=== PATIENT | female | born 1980 | race Caucasian/White ===

== ENCOUNTER 2024-09-17 23:22 | Outpatient (CLI) | payer OTHER, SELFPAY ==
--- OUTSIDE RECORDS SUMMARY | 2024-08-10 11:00 | XMS_ITS | Encounter Summary ---
Author Organization [place] Address [address] [place] [address] Care Team Providers Care Ironing Worker Name Role Phone Tej Yazmin LEE BILLING MANAGER Unavailable [phone] Yazmin Burnham APRN [facility] Primary Care Provider + Kenisha Rodriges PA-C Unavailable [phone] Kari Boykin [facility] Unavailable [phone] Kari Boykin [facility] Unavailable [phone] Reason for Visit * Reason Comments RECHECK Encounter Details Date Type Department Care Team (Late st Contact Info) Description 08/10/2024 11:00 AM CDT Office Visit [facility] [address] [place], [place] [address] Kenisha Rodriges PA-C [address] [facility] [place] [id number] Overweight with body mass index (BMI) of 26 to 26.9 in adult (Primary Dx); History of obesity; High cholesterol Social History Tobacco Use Types Packs/Day Years Used Date Smoking Tobacco: Never Smokeless Tobacco: Never Alcohol Use Standard Drinks/Week Comments Yes 0 (1 standard drink = 0.6 oz pur e alcohol) Rare Social Connection and Isolat ion Panel [NHANES] Answer Date Recorded In a typical week, how many times do you talk on the phone with family, friends, or neighbors? More than three times a week 04/23/2021 How often do you get togethe r with friends or relatives? Once a week 04/23/2021 How often do you attend chur or church services? More than 4 times per year 04/23/2021 Do you belong to any clubs o r organizations such as jehovah's witness groups, unions, fraternal or athletic groups, or school groups? Yes 04/23/2021 Attends Club or Organization Meetings Not on digna e 04/23/2021 Are you , , di vorced, , never , or living with a partner? 04/23/2021 AUDIT-C Answer Date Recorded Q1: How often do you have a drink containing alc ohol? Monthly or less 04/23/2021 Q2: How many drinks containi ng alcohol do you have on a typical day when you are drinking? 1 or 2 04/23/2021 Q3: How often do you have si x or more drinks on one occasion? Less than monthly 04/23/2021 Overall Financial Resource Strain (CARDIA) Answe r Date Recorded How hard is it for you to pa y for the very basics like food, housing, medical care, and heating? Not hard at all 04/23/2021 PHQ-2 Answer Date Recorded PHQ-2 Score 0 06/18/2024 [facility] - Occupational Stress Questionnaire Answer Date Recorded Do you feel stress - tense, restless, nervous, or anxious, or unable to sleep at night because your mind is troubled all the time - these days? Rather much 04/23/2021 Exercise Vital Sign Answer Date Recorde d On average, how many days pe r week do you engage in moderate to strenuous exercise (like a brisk walk)? 3 days 04/23/2021 On average, how many minutes do you engage in exercise at this level? 30 min 04/23/2021 Hunger Vital Sign Answer Date Recorded Within the past 12 months, y ou worried that your food would run out before you got the money to buy more. Never true 04/23/19 22 Within the past 12 months, t he food you bought just didn't last and you didn't have money to get more. Never true 04/23/2021 PRAPARE - Transportation Answer Date Re corded In the past 12 months, has l ack of transportation kept you from medical appointments or from getting medications? No 03/26 In the past 12 months, has l ack of transportation kept you from meetings, work, or from getting things needed for daily living? No 04/23/2021 Housing Stability Vital Sign Answer Chris e Recorded In the last 12 months, was t here a time when you were not able to pay the mortgage or rent on time? No 04/23/2021 In the last 12 months, how many places have you lived? 2 04/23/2021 In the last 12 months, was t here a time when you did not have a steady place to sleep or slept in a residential (including now)? No 04/23/2021 Adolescent Education Answer Date Record ed Getting School Help Needed Not on file 01/05 Interpersonal Safety Answer Date Record ed Do you feel physically and e motionally safe where you currently live? Yes 07/28/2023 Within the past 12 months, h ave you been hit, slapped, kicked or otherwise physically hurt by someone? No 07/28/2023 Within the past 12 months, h ave you been humiliated or emotionally abused in other ways by your partner or ex-partner? 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 Not on file Not on file documented as of this encounter Last Filed Vital Signs Vital Sign Reading Time Taken Comments Blood Pressure 110/75 08/10/2024 10:40 AM CDT Pulse 80 08/10/2024 10:40 AM CDT Temperature - - Respiratory Rate - - Oxygen Saturation 98% 08/10/2024 10:40 AM CDT Inhaled Oxygen Concentration - - Weight 75.8 kg (167 lb) 08/10/2024 10:40 AM CDT Height 167.6 cm (5' 6) 08/10/2024 10:40 AM CDT Body Mass Index 26.95 08/10/2024 10:40 AM CDT documented in this encounter Patient Instructions * Patient Instructions* Kenisha Rodriges PA-C - 08/10/2024 11:00 AM CDT Nice to talk with you today! Thank you for allowing me the privilege of caring for you. We hope we provided you with the excellent service you deserve. To ensure the quality of our services you may receive a patient satisfaction survey from an independent monitoring company. The greatest compliment you can give is Likely to Recommend Below is our plan we discussed.- ALDEN De Get lab Continue zepbound 2.5 mg Please schedule a follow up with Kenisha Rodriges PA-C in 6 months. Will be seeing MTM in September. If you need to reach me sooner you can do so by calling [phone]. Have a great day! Eat Better ? Move More ? Live Well Eat 3 nutrient-rich meals each day Don???t skip meals--it will cause you to overeat later in the day! Eating fiber (vegetables/fruits/whole grains) and protein with meals helps you stay full longer Choose foods with less than 10 grams of sugar and 5 grams of fat per serving to prevent excess calories and weight gain Eat around the same times each day to develop a routine eating schedule Avoid snacking unless physically hungry. Planned snacks: 1-2 times per day and no more than 150 calories Eat protein first Protein helps with healing, maintaining adequate muscle mass, reducing hunger and optimizing nutritional status Aim for 60-80 grams of protein per day Fill up on Fiber Fiber comes from plants--fruits, veggies, whole grains, nuts/seeds and beans Fiber is low in calories, high in phytonutrients and helps you stay full longer Aim for 25-35 grams per day by eating fiber with meals and snacks Eat S-L-O-W-L-Y Take 20-30 minutes to eat each meal by taking small bites, chewing foods to applesauce consistency or 20-30 times before you swallow Eating foods too fast can delay satiety/fullness signals and increase overeating Slow down your eating by using toddler utensils, putting your fork/spoon down between bites and notwatching TV or emailing during meals! Keep a Journal Writing down what you eat, how you feel and when you are active helps you identify new changes to work on from week to week Look for ways to cut 100 calories from your current diet 2-3 times per day Drink 64 ounces of 0-Calorie drinks between meals Water Zero calorie Propel?? or Vitamin Water?? SoBe Lifewater?? Zero Calories Crystal Light??, Sugar-Free Carlitos-Aid??, and other sugar-free lemonade or flavored alcazar Keep Caffeine to less than 300mg per day ie: 3-6oz cups coffee Work up to 45-60 minutes of physical activity most days of the week Helps with losing weight and prevent regaining those extra pounds! Do a combo of cardio (walking/water exercises) and strength training (lifting weights/Vinyasa yoga) Avoid Mindless Eating Be present when you eat--take note of the smell, taste and quality of your food Make a list of alternative activities you could do to prevent eating out of boredom/stress Go for a walk, call a friend, chew gum, paint your nails, re-organize the garage, etc documented in this encounter Progress Notes * Kenisha Rodriges PA-C - 08/10/2024 11:00 AM CDT Return Medical Weight Management Note Yen Milan : 1980 JANEY: 08/10/2024 Dear Yazmin Burnham APRN BILLING MANAGER, I had the pleasure of seeing your patient Yen Milan. She is a 43 year old female who I am continuing to see for treatment of obesity related to: 02/02/2024 1:29 PM -- I have the following health issues associated with obesity High Cholesterol I have the following symptoms associated with obesity Depression Back Pain Fatigue Assessment Problem List Items Addressed This Visit Overweight with body mass index (BMI) of 26 to 26.9 in adult - Primary Relevant Orders Basic metabolic panel High cholesterol History of obesity PLAN/DISCUSSION: Congratulated patient on overall weight loss and lifestyle changes. 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 Plan: Get lab Continue zepbound 2.5 mg FOLLOW-UP: MTM in September, provider in January SUBJECTIVE/OBJECTIVE: Patient seen initially 02/03/2024 and was started on compounded semaglutide. Has followed up with MTM Pharmacist Kari Boykin. Last visit was 06/18/2024 and was transitioned over to zepbound 2.5 mg vials. Is on week 5. Weight is unchanged since this transition. Is still not snacking. Seems like has appetite suppression. Gives injection every 10 days Biggest challenge now is 4 times week not home for dinner due to kids sports. Has been eating late. Anti-obesity medications: Current: zepbound 2.5 mg every 10 days to help wean off. Side effects: Denies nausea, vomiting, abdominal pain, severe constipation, diarrhea, or heartburn Antiobesity medication history: Phentermine (Lomaira, Adipex) Caution due to anxiety Phentermine/Topiramate (Qsymia) Bupropion/Naltrexone (Contrave) Liraglutide (Saxenda) Semaglutide (Wegovy) Patient has no history of pancreatitis. Patient has no personal or family history of medullary thyroid carcinoma or MEN2. Tirzepatide (Zepbound) Orlistat (Xenical/Avery) Off-Label Medications for Obesity Semaglutide (Ozempic) Tirzepatide (Mounjaro) Bupropion (Wellbutrin) Currently taking for years Metformin(Glucophage) option Topiramate (Topamax) hx of kidney stone Naltexone Recent diet changes: Drinks 80 oz water. B: uzbek yogurt, cashi cereal, apple L: grapes, turkey sandwich, avocado D: Durand sandwich Not snacking much Recent exercise/activity changes: walking a lot more. Got some resistance band couple times weekly Recent stressors: up lately due to busy schedule CURRENT WEIGHT: 167 lbs 0 oz Initial Weight (lbs): 203 lbs Last Visits Weight: 203 lb (92.1 kg) Cumulative weight loss (lbs): 36 Weight Loss Percentage: 17.73% MEDICATIONS: Current Outpatient Medications Medication Sig Dispense Refill buPROPion (WELLBUTRIN XL) 150 MG 24 hr tablet Take 150 mg by mouth every morning. 150 mg + 300 mg =450 mg daily buPROPion (WELLBUTRIN XL) 300 MG 24 hr tablet TAKE 1 TABLET BY MOUTH EVERY DAY IN THE MORNING busPIRone (BUSPAR) 10 MG tablet Take 10 mg by mouth 2 times daily. citalopram (CELEXA) 40 MG tablet Take 40 mg by mouth every morning. 150 mg + 300 mg = 450 mg daily GLYCOPYRROLATE PO Take 1 mg by mouth 3 times daily as needed. LARISSIA 0.1-20 MG-MCG tablet TAKE 1 TABLET BY MOUTH ONCE DAILY. TAKE ONLY ACTIVE TABLETS CONTINUOUSLY AND SKIP PLACEBO TABLETS linaclotide (LINZESS) 290 MCG capsule Take 290 mcg by mouth every morning (before breakfast) ondansetron (ZOFRAN ODT) 4 MG ODT tab Take 1 tablet (4 mg) by mouth every 8 hours as needed for nausea. 20 tablet 0 SUMAtriptan (IMITREX) 50 MG tablet Take 1-2 tablets (50-100 mg) by mouth at onset of headache for migraine. May repeat in 2 hrs. Max 200 mg in 24 hrs 9 tablet 0 tirzepatide-weight management (ZEPBOUND) 2.5 MG/0.5ML vial Inject 0.5 mLs (2.5 mg) subcutaneously once a week. Cell #:[phone] 2 mL 3 cloNIDine (CATAPRES) 0.1 MG tablet as needed. (Patient not taking: Reported on 08/10/2024) COMPOUNDED NON-CONTROLLED SUBSTANCE (CMPD RX) - PHARMACY TO MIX COMPOUNDED MEDICATION Inject Semaglutide 0.5 mg subcutaneously once weekly (Patient not taking: Reported on 08/10/2024) 1 mL 2 ROS: General Fatigue: No Sleep Quality: OK PHYSICAL EXAM: Objective BP 110/75 Pulse 80 Ht 5' 6 (1.676 m) Wt 167 lb (75.8 kg) SpO2 98% BMI 26.95 kg/m?? GENERAL: Healthy, alert and no distress EYES: Eyes grossly normal to inspection. No discharge or erythema, or obvious scleral/conjunctival abnormalities. RESP: No audible wheeze, cough, or visible cyanosis. No visible retractions or increased work of breathing. SKIN: Visible skin clear. No significant rash, abnormal pigmentation or lesions. NEURO: Cranial nerves grossly intact. Mentation and speech appropriate for age. PSYCH: Mentation appears normal, affect normal/bright, judgement and insight intact, normal speech and appearance well-groomed. Sincerely, Kenisha Rodriges PA-C 25 minutes spent on the date of the encounter doing chart review, review of test results, patient visit and documentation documented in this encounter Plan of Treatment Upcoming Encounters Date Type Department Care Team (Late st Contact Info) Description 01/25/2025 11:00 AM FUEL DOCK ATTENDANT Office Visit [facility] [place] [address] [facility] [address] [place], [place] [phone] Kenisha Rodriges PA-C [address] [facility] [place] [address] documented as of this encounter Results * (ABNORMAL) Basic metabolic panel (08/10/2024 11:41 AM CDT) Sodium 137 135 - 145 mmol/L 08/10/2024 12:26 PM CDT LABORATORY Potassium 4.5 3.4 - 5.3 mmol/L 08/10/2024 12:26 PM CDT LABORATORY Chloride 103 98 - 107 mmol/L 08/10/2024 12:26 PM [facility] LAB[facility]ORY Carbon Dioxide (CO2) 26 22 - 29 mmol/L 08/10/2024 12:26 PM CDT LABORATORY Anion Gap 8 7 - 15 mmol/L 08/10/2024 12:26 PM CDT LABORATORY Urea Nitrogen 18.0 6.0 - 20.0 mg/dL 08/10/2024 12:26 PM CDT LABORATORY Creatinine 1.01(H) 0.51 - 0.95 mg/dL 08/10/2024 12:26 PM CDT LABORATORY GFR Estimate 71 >60 mL/min/1.7 3m2 08/10/2024 12:26 PM T LABORATORY Comment:eGFR calculated usin g 2020 CKD-EPI equation. Calcium 9.4 8.8 - 10.4 mg/dL 08/10/2024 12:26 PM CDT LABORATORY Glucose 79 70 - 99 mg/dL 08/10/2024 12:26 PM CDT LABORATORY Blood STRUCTURE OF RIGHT UPPER LIMB / Unknown Venipuncture / Unknown 08/10/2024 11:41 AM CDT 08/10/2024 11:41 AM CDT Kenisha Rodriges PA-C LAB - BLOOD ORDERABLES Final Result LABORATORY [facility] [address], [address] [place] [address], [facility] [phone] documented in this encounter Visit Diagnoses Diagnosis Overweight with body mass index (BMI) of 26 to 26.9 in adult- Primary History of obesity Personal history of other specified diseases High cholesterol Pure hypercholesterolemia documented in this encounter Care Teams Ironing Worker Relationship Specialty Start Date End Date Yazmin Burnham APRN BILLING MANAGER [address] [facility] [place] [address] PCP - General 02/02/24 Yazmin Burnham APRN BILLING MANAGER [address] [facility] [place] [id number] Assigned PCP 09/14/23 Kenisha Rodriges PA-C [address] [place] [address] Assigned Surgical Provider 02/14/24 Kari Boykin RPH [address] [place] [address] [phone] Pharmacist Pharmacist 05/05/24 Kari Boykin RPH [address] [place] [address] [phone] Assigned MTM Pharmacist 05/16/24 documented as of this encounter
--- OUTSIDE RECORDS SUMMARY | 2024-08-10 12:40 | XMS_ITS | Encounter Summary ---
Author Organization [place] Address [address] [place] [address] Care Team Providers Care Clinical Field Specialist Name Role Phone ChristinaYazmin valencia [address] [facility]IGHT Unavailable [phone] Yazmin Burnham APRN [facility] Primary Care Provider + Kenisha Rodriges PA-C Unavailable [phone] Kari Boykin [facility] Unavailable Kari Boykin [facility] Unavailable [phone] Encounter Details Date Type Department Care Team (Late st Contact Info) Description 08/10/2024 12:40 PM CDT Lab [facility] [address] [place] [phone] Overweight with body mass index (BMI) of 26 to 26.9 in adult Social History Tobacco Use Types Packs/Day Years [...] 04/23/2021 How often do you attend chur ch or mormon services? More than 4 times per year 04/23/2021 Do you belong to any clubs o r organizations such as roman catholic groups, unions, fraternal or athletic groups, or [...] Answer Date Recorded PHQ-2 Score 0 06/18/2024 [facility] - Occupational Stress Questionnaire Answer Date Recorded [...] place to sleep or slept in a nursing home (including now)? 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 [facility] [address] [place] [phone] Kenisha Rodriges PA-C [address] [place] [id number] documented as of this encounter Procedures Procedure Name Priority Date/Time Associated Diagnosis Comments BASIC METABOLIC PANEL Routine 08/10/2024 11:41 AM CDT Overweight with body mass index (BMI) of 26 to 26.9 in adult documented in this encounter Results * (ABNORMAL) Basic metabolic panel (08/10/2024 11:41 AM CDT) Sodium 137 135 - 145 mmol/L 08/10/2024 12:26 PM CDT LABORATORY Potassium 4.5 3.4 - 5.3 mmol/L 08/10/2024 12:26 PM CDT LABORATORY Chloride 103 98 - 107 mmol/L 08/10/2024 12:26 PM CDT LABORATORY Carbon Dioxide (CO2) 26 22 - 29 mmol/L 08/10/2024 12:26 PM CDT LABORATORY Anion Gap 8 7 - 15 mmol/L 08/10/2024 12:26 PM CDT LABORATORY Urea Nitrogen 18.0 6.0 - 20.0 mg/dL 08/10/2024 12:26 PM CDT LABORATORY Creatinine 1.01(H) 0.51 - 0.95 mg/dL 08/10/2024 12:26 PM CDT LABORATORY GFR Estimate 71 >60 mL/min/1.7 3m2 08/10/2024 12:26 PM CDT LABORATORY Comment:eGFR calculated 2020 CKD-EPI equation. Calcium 9.4 8.8 - 10.4 mg/dL 08/10/2024 12:26 PM CDT LABORATORY Glucose 79 70 - 99 mg/dL 08/10/2024 12:26 PM CDT LABORATORY Blood STRUCTURE OF RIGHT UPPER LIMB / Unknown Venipuncture / Unknown 08/10/2024 11:41 AM CDT 08/10/2024 11:41 AM CDT us Kenisha Rodriges PA-C LAB - BLOOD ORDERABLES Final Result LABORATORY [facility] [address], [address] [place] [address], [place] [phone] documented in this encounter Visit Diagnoses Diagnosis Overweight with body mass index (BMI) of 26 to 26.9 in adult documented in this encounter Care Teams Clinical Field Specialist Relationship Specialty Start Date End Date Yazmin Burnham APRN [address] [facility] [facility] [place] [id number] PCP - General 02/02/24 Yazmin Burnham APRN CNP [address] [facility] [place] [address] Assigned PCP 09/14/23 Kenisha Rodriges PA-C [address] [place] [address] Assigned Surgical Provider 02/14/24 Kari Boykin [facility] [address] [place] [phone] Pharmacist Pharmacist 05/05/24 Kari Boykin [facility] [address] [place] [id number] Assigned MTM Pharmacist 05/16/24 documented as of this encounter
--- OUTSIDE RECORDS SUMMARY | 2024-09-18 00:01 | XMS_ITS | Encounter Summary ---
Author Organization [place] Address [address] [place] [id number] Care Team Providers Care Board Winder Name Role Phone Yazmin Burnham APRN VETERINARY SCIENCE TEACHER Unavailable [phone] Yazmin Burnham APRN [facility] Primary Care Provider + Kenisha Rodriges PA-C Unavailable [phone] Kari Boykin [facility] Unavailable [phone] Kari Boykin [facility] Unavailable [phone] Reason for Visit * Reason Comments Abdominal Pain * Auth/Cert Specialty Diagnoses / Procedures Referred By Radha vegas Referred To Contact EMERGENCY MEDICINE Diagnoses Acute cholecystitis Randee Parikh MD [address] [place] [address] Phone: tel: fax: [facility] Emergency Dept [address] [place] [address] Phone: tel:[phone] fax: Referral ID Status Reason Start Date Expiration Date Visits Re quested Visits Authorized [id number] 1 1 Encounter Details Date Type Department Care Team (Late st Contact Info) Description 09/18/2024 12:01 AM CDT - 09/18/2024 4:54 PM CDT Hospital Encounter [facility] PreOP/PostOP [address] [place] [id number] Tyrell Aguero MD [facility] [address] [address] Randee Parikh MD [address] [place] [address] Acute cholecystitis Discharge Disposition: Home or Self Care Social History Tobacco Use Types Packs/Day Years [...] How often do you attend chur or mosque services? More than 4 times per year 04/23/2021 Do you belong to any clubs o r organizations such as muslim groups, unions, fraternal or athletic groups, or [...] on one occasion? Less than monthly 04/23/2021 PHQ-2 Answer Date Recorded PHQ-2 Score 0 06/18/2024 [facility] - Occupational [...] exercise at this level? 30 min 04/23/2021 Adolescent Education Answer Date Record ed Getting School Help Needed Not on file 01/05 Food Insecurity Answer Date Recorded Within the past 12 months, d id you worry that your food would run out before you got money to buy more? No 09/18/2024 Within the past 12 months, d id the food you bought just not last and you didn t have money to get more? No 09/18/2024 Housing Stability Answer Date Recorded Do you have housing? ([place] is defined as stable permanent housing and does not include staying outside in a car, in a tent, in an abandoned building, in an overnight fci, or couch-surfing.) Yes 09/18/2024 Are you worried about losing your housing? No 09/18/2024 Financial Resource Strain Answer Date R ecorded Within the past 12 months, h ave you or your family members you live with been unable to get utilities (heat, electricity) when it was really needed? No 09/18/2024 Transportation Needs Answer Date Record ed Within the past 12 months, h as lack of transportation kept you from medical appointments, getting your medicines, non-medical meetings or appointments, work, or from getting things that you need? No 09/18/2024 Interpersonal Safety Answer Date Record ed Do you feel physically and e motionally safe where you currently live? Yes 09/18/2024 Within the past 12 months, h ave you been hit, slapped, kicked or otherwise physically hurt by someone? No 09/18/2024 Within the past 12 months, h ave you been humiliated or emotionally abused in other ways by your partner or ex-partner? 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 Not on file Not on file documented as of this encounter Last Filed Vital Signs Vital Sign Reading Time Taken Comments Blood Pressure 128/80 09/18/2024 4:40 PM CDT Pulse 95 09/18/2024 4:40 PM CDT Temperature 36.3 C (97.3 F) 09/18/2024 4:40 PM CDT Respiratory Rate 19 09/18/2024 4:29 PM CDT Oxygen Saturation 96% 09/18/2024 4:40 PM CDT Inhaled Oxygen Concentration - - Weight 74.8 kg (165 lb) 09/18/2024 12:10 AM CDT Height 167.6 cm (5' 6) 09/18/2024 12:10 AM CDT Body Mass Index 26.63 09/18/2024 12:10 AM CDT documented in this encounter Discharge Instructions * Discharge Instructions* Elsa Ng RN - 09/18/2024 3:18 PM CDT HOME CARE FOLLOWING LAPAROSCOPIC CHOLECYSTECTOMY Mike Vincent, Kenia Johnson, R. O???Kane Mott J. Shaheen INCISIONAL CARE: Replace the bandage over your incisions DAILY until all drainage stops, or if more comfortable to have in place. If present, leave the steri-strips (white paper tapes) in place for 14 days after surgery. If Dermabond (a type of skin glue) is present, leave in place until it wears/flakes off (2-3 weeks). BATHING: OK to shower 48 hours after surgery. Avoid baths for 1 week after surgery. You may wash your hair at any time. Gently pat your incision dry after bathing. Do not apply lotions, creams, or ointments to incisions. ACTIVITY: Light Activity -- you may immediately be up and about as tolerated. Walking is encouraged, increaseas tolerated. Driving/Light Work-- when comfortable and off narcotic pain medications. Strenuous Work/Activity -- limit lifting to 20 pounds for 2 weeks. Progressively increase with time. Active Sports (running, biking, etc.) -- cautiously resume after 2 weeks. DISCOMFORT: Local anesthetic placed at surgery should provide relief for 4-8 hours. Begin taking pain pills before discomfort is severe. Take the pain medication with some food, when possible, to minimize side effects. Intermittent use of ice packs may help during the first 1-3 weeks after surgery. Expect gradual improvement. Sczi-hnw-gunveey anti-inflammatory medications (i.e. Ibuprofen/Advil/Motrin or Naprosyn/Aleve) may be used per package instructions in addition to or while tapering off the narcotic pain medications to decrease swelling and sensitivity. DO NOT TAKE these Anti-inflammatory medications if your primary physician has advised against doing so, or if you have acid reflux, ulcer, or bleeding disorder, or take blood-thinner medications. Call your primary physician or the surgery office if you have medication questions. After laparoscopic cholecystectomy, you may have shoulder or upper back discomfort due to the gas used during surgery. This is temporary and should resolve within 2-3 days. Frequent short walks may help with this. You may have decreased energy level for 1-2 weeks after surgery related to your recovery. DIET: Start with liquids and gradually increase diet as tolerated. Drink plenty of fluids. While taking pain medications, consider use of a stool softener, increase your fiber in your diet, or add a fiber supplement (like Metamucil, Citrucel) to help prevent constipation - a possible side effect of pain m edications. It is not uncommon to experience some bowel changes (loose stools or constipation) after surgery. Your body has to adapt to you no longer having a gall bladder. To help minimize this sideeffect, avoid fatty foods for 1-2 weeks after surgery. You may then slowly increase the amount of fatty foods in your diet. NAUSEA: If nauseated from the anesthetic/pain meds; rest in bed, get up cautiously with assistance, and drink clear liquids (juice, tea, broth). FOLLOW-UP AFTER SURGERY: -Our office will contact you approximately 2-3 weeks after surgery to check on your progress and answer any questions you may have. If you are doing well, you will not need to return for an office appointment. If any concerns are identified over the phone, we will help you make an appointment to see a provider. -If you have not received a phone call, have any questions or concerns, or would like to be seen, please call us at [phone]. We are located at: [facility], [address]; [place] [address] -CONTACT US IF THE FOLLOWING DEVELOPS: 1. A fever that is above 101?? 2. Increased redness, warmth, drainage, bleeding, or swelling. 3. Pain that is not relieved by rest/ice and your prescription. 4. Increasing pain after 48 hours. 5. Drainage that is thick, cloudy, yellow, green or white. 6. Any other questions or concerns. FREQUENTLY ASKED QUESTIONS: Q: How should my incision look? A: Normally your incision will appear slightly swollen with light redness directly along the incision itself as it heals. It may feel like a bump or ridge as the healing/scarring happens, and over time (3-4 months) this bump or ridge feeling should slowly go away. In general, clear or pink watery drainage can be normal at first as your incision heals, but should decrease over time. Q: How do I know if my incision is infected? A: Look at your incision for signs of infection, like redness around the incision spreading to surrounding skin, or drainage of cloudy or foul-smelling drainage. If you feel warm, check your temperature to see if you are running a fever. If any of these things occur, please notify the nurse at our office. We may need you to come into the office for an incision check. Q: How do I take care of my incision? A: If you have a dressing in place - Starting the day after surgery, replace the dressing 1-2 timesa day until there is no further drainage from the incision. At that time, a dressing is no longer needed. Try to minimize tape on the skin if irritation is occurring at the tape sites. If you have significant irritation from tape on the skin, please call the office to discuss other method of dressing your incision. Small pieces of tape called ???steri-strips?? may be present directly overlying your incision; these may be removed 10 days after surgery unless otherwise specified by your surgeon. If these tapes start to loosen at the ends, you may trim them back until they fall off or are removed. A: If you had ???Dermabond?? tissue glue used as a dressing (this causes your incision to look shiny with a clear covering over it) - This type of dressing wears off with time and does not require more dressings over the top unless it is draining around the glue as it wears off. Do not apply ointments or lotions over the incisions until the glue has completely worn off. Q: There is a piece of tape or a sticky ???lead?? still on my skin. Can I remove this? A: Sometimes the sticky ???leads?? used for monitoring during surgery or for evaluation in the emergency department are not all removed while you are in the hospital. These sometimes have a tab or metal dot on them. You can easily remove these on your own, like taking off a band-aid. If there is agel substance under the ???lead?? , simply wipe/clean it off with a washcloth or paper towel. Q: What can I do to minimize constipation (very hard stools, or lack of stools)? A: Stay well hydrated. Increase your dietary fiber intake or take a fiber supplement -with plenty of water. Walk around frequently. You may consider an vpmy-qvm-wfgfkbq stool-softener. Your Pharmacist can assist you with choosing one that is stocked at your pharmacy. Constipation is also one of themost common side effects of pain medication. If you are using pain medication, be pro- active and try to PREVENT problems with constipation by taking the steps above BEFORE constipation becomes a problem. Q: What do I do if I need more pain medications? A: Call the office to receive refills. Be aware that certain pain meds cannot be called into a pharmacy and actually require a paper prescription. A change may be made in your pain med as you progress thru your recovery period or if you have side effects to certain meds. --Pain meds are NOT refilled after 5pm on weekdays, and NOT AT ALL on the weekends, so please look ahead to prevent problems. Q: Why am I having a hard time sleeping now that I am at home? A: Many medications you receive while you are in the hospital can impact your sleep for a number ofdays after your surgery/hospitalization. Decreased level of activity and naps during the day may also make sleeping at night difficult. Try to minimize day-time naps, and get up frequently during theday to walk around your home during your recovery time. Sleep aides may be of some help, but are not recommended for long-term use. Q: I am having some back discomfort. What should I do? A: This may be related to certain positioning that was required for your surgery, extended periods of time in bed, or other changes in your overall activity level. You may try ice, heat, acetaminophen, or ibuprofen to treat this temporarily. Note that many pain medications have acetaminophen in them and would state this on the prescription bottle. Be sure not to exceed the maximum of 4000mg per day of acetaminophen. If the pain you are having does not resolve, is severe, or is a flare of back pain you have had on other occasions prior to surgery, please contact your primary physician for further recommendations or for an appointment to be examined at their office. Q: Why am I having headaches? A: Headaches can be caused by many things: caffeine withdrawal, use of pain meds, dehydration, highblood pressure, lack of sleep, over-activity/exhaustion, flare-up of usual migraine headaches. If you feel this is related to muscle tension (a band-like feeling around the head, or a pressure at thelow-back of the head) you may try ice or heat to this area. You may need to drink more fluids (try electrolyte drink like Gatorade), rest, or take your usual migraine medications. If your headaches do not resolve, worsen, are accompanied by other symptoms, or if your blood pressure is high, please call your primary physician for recommendation and/or examination. Q: I am unable to urinate. What do I do? A: A small percentage of people can have difficulty urinating initially after surgery. This includes being able to urinate only a very small amount at a time and feeling discomfort or pressure in thevery low abdomen. This is called ???urinary retention?? , and is actually an urgent situation. Proceed to your nearest Emergency department for evaluation (not an Urgent Care Center). Sometimes the bladder does not work correctly after certain medications you receive during surgery, or related to certain procedures. You may need to have a catheter placed until your bladder recovers. When planningto go to an Emergency department, it may help to call the ER to let them know you are coming in for this problem after a surgery. This may help you get in quicker to be evaluated. If you have symptoms of a urinary tract infection, please contact your primary physician for the proper evaluation and treatment. If you have other questions, please call the office Friday thru Friday between 8am and 4:30pm to discuss with the nurse or physician assistant professor of biology. # There is a surgeon ALUM PLANT SUPERVISOR on weekday evenings and over the weekend in case of urgent need only, and may be contacted at the same number. If you are having an emergency, call 911 or proceed to your nearest emergency department. You received Toradol, an IV form of Ibuprofen (Motrin) at 3:15pm. Do not take any Ibuprofen products until 9:15pm. Maximum acetaminophen (Tylenol) dose from all sources should not exceed 4 grams (4000 mg) per day. You last had 650mg at 4pm. [facility] [phone] * Attachments The following attachments cannot be sent through Care Everywhere. * (s) After Anesthesia (Sleep Medicine) ([place]) documented in this encounter Medications at Time of Discharge acetaminophen (TYLENOL) 325 MG tabletIndications: Acute cholecystitis Take 2 tablets (650 mg) by mouth every 4 hours as needed for mild pain. 50 tablet 5 buPROPion (WELLBUTRIN XL) 150 MG 24 hr tablet Take 150 mg by mouth every morning. Take with the 300 mg to make 450 mg buPROPion (WELLBUTRIN XL) 300 MG 24 hr tablet Take 300 mg by mouth every morning. Take with the 150 mg to make 450 mg busPIRone (BUSPAR) 10 MG tablet Take 10 mg by mouth 2 times daily. 4 citalopram (CELEXA) 40 MG tablet Take 40 mg by mouth at bedtime. glycopyrrolate (ROBINUL) 1 MG tablet Take 1 mg by mouth 4 times daily as needed. ibuprofen (ADVIL/MOTRIN) 600 MG tabletIndications: Acute cholecystitis Take 1 tablet (600 mg) by mouth every 6 hours as needed for other (mild and/or inflammatory pain). 30 tablet 5 LARISSIA 0.1-20 MG-MCG tablet TAKE 1 TABLET BY MOUTH ONCE DAILY. TAKE ONLY ACTIVE TABLETS CONTINUOUSLY AND SKIP PLACEBO TABLETS 1 linaclotide (LINZESS) 290 MCG capsule Take 290 mcg by mouth every morning (before breakfast) ondansetron (ZOFRAN ODT) 4 MG ODT tabIndications:Jose Alfredo sea Take 1 tablet (4 mg) by mouth every 8 hours as needed for nausea. 20 tablet 5 oxyCODONE (ROXICODONE) 5 MG tabletIndications: Acute cholecystitis Take 1-2 tablets (5-10 mg) by mouth every 4 hours as needed for moderate to severe pain. 6 tablet 5 senna-docusate (SENOKOT-S/PERICOL BOB) 8.6-50 MG tabletIndications: Acute cholecystitis Take 1-2 tablets by mouth 2 times daily. 30 tablet 5 SUMAtriptan (IMITREX) 50 MG tabletIndications: Migraine without aura and without status migrainosus, not intractable Take 1-2 tablets (50-100 mg) by mouth at onset of headache for migraine. May repeat in 2 hrs. Max 200 mg in 24 hrs 9 tablet 5 tirzepatide-weight management (ZEPBOUND) 2.5 MG/0.5ML vialIndications:Cl ass 1 obesity due to excess calories without serious comorbidity with body mass index (BMI) of 32.0 to 32.9 in adult Inject 0.5 mLs (2.5 mg) subcutaneously once a week. Cell #:[phone] 2 mL 3 5 documented as of this encounter Progress Notes * Rajat Ba, ARBEN - 09/18/2024 3:25 AM CDT ROOM # 252 Living Situation (if not independent, order SW consult): Facility name: house with personnel scheduler: roge Activity level at baseline: ind Activity level on admit: sba Who will be transporting you at discharge: roge Patient registered to observation; given Patient Bill of Rights; given the opportunity to ask questions about observation status and their plan of care. Patient has been oriented to the observation room, bathroom and call light is in place. Discussed discharge goals and expectations with patient/family. 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 Pain was so severe she was diaphoretic and clammy. Denies any hx of abdominal pain issues. She had spaghetti, caesar salad, and garlic bread for dinner. Is currently trying to wean off of it. Denies any fevers ER VSS and she is afebrile CMP with mildly elevated AST 71, lipase also slightly up at 73 CBC wnl AUS Several small gallstones are present within a mildly distended and slightly thick-walled gallbladder. Additionally, the electrophysiology technologist reports that the patient has focal tenderness over the gallbladder. These findings are at least mildly to moderately suspicious for acute cholecystitis. Problem List: Acute cholecystitis IVF until able to take po Prn antiemetics and pain medications Empiric amp-sulbactam Gen surg consultation Mildly elevated AST and lipase Suspect related to above Jennifer CMP Depression Resume home meds when med rec completed Pre-Op Denies issues with anesthesia other than mild nausea/vomiting. No hx of bleeding tendencies. Easilywalks up 2 flights of stairs without having to stop DVT Prophylaxis: Pneumatic Compression Devices Code Status: Full Code Functional Status: independent Swann: not needed Access: PIV Time spent 45 minutes reviewing epic including notes/labs/prior hx, current medications. 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 Pain was so severe she was diaphoretic and clammy. Denies any hx of abdominal pain issues. She had spaghetti, caesar salad, and garlic bread for dinner. Is currently trying to wean off of it. Denies any fevers ER VSS and she is afebrile CMP with mildly elevated AST 71, lipase also slightly up at 73 CBC wnl AUS Several small gallstones are present within a mildly distended and slightly thick-walled gallbladder. Additionally, the electrophysiology technologist reports that the patient has focal tenderness over the gallbladder. These findings are at least mildly to moderately suspicious for acute cholecystitis. The history is obtained in discussion with the ER provider Jarrett Aguero MD and the patient with excellent reliability Epic and Care everywhere were extensively reviewed Past Medical History: Past Medical History: Diagnosis Date Arthritis Depressive disorder DUB (dysfunctional uterine bleeding) 10/11/2008 Endometriosis, site unspecified Endometriosis Hypertension only with Lumbar radiculopathy 01/03/2013 Menorrhagia 01/24/2009 depression counseling and medication R UVJ obstructing stone 10/17/2016 S/P section 08/11/2015 Thyroid activity decreased Past Surgical History: Past Surgical History: Procedure Laterality Date APPENDECTOMY 2003 separate from the laparoscopy SECTION 11/06/2012 Procedure: SECTION; section for failure to progress; Surgeon: Leyda Ramires MD; Location: [facility] SECTION N/A 08/11/2015 Procedure: SECTION; Surgeon: Reena Sanchez MD; Location: [facility] SECTION N/A 07/01/2017 Procedure: SECTION;; Surgeon: Loraine Taylor MD; Location: [facility] HC TOOTH EXTRACTION W/FORCEP LAPAROSCOPIC ABLATION ENDOMETRIOSIS 2002 WRIST SURGERY Left 2009 ZC NONSPECIFIC PROCEDURE cauterize endometriosis via laparoscopy 2003 Social History: Social History Tobacco Use Smoking status: Never Smokeless tobacco: Never Substance Use Topics Alcohol use: Yes Comment: Rare Family History: Family History Problem Relation Age of Onset Hypertension Mother Anxiety Disorder Mother Thyroid Disease Mother Thyroid Disease Sister Cancer - colorectal Maternal Grandfather Diabetes Maternal Grandfather Colon Cancer Maternal Grandfather C.A.D. Paternal Grandmother Coronary Artery Disease Paternal Grandmother Allergies: Allergies Allergen Reactions Seasonal Allergies Medications: Await med rec Review of Systems: A Comprehensive greater than 10 system review of systems was carried out. Pertinent positives and negatives are noted above. Otherwise negative for contributory information. Physical Exam: Blood pressure 132/81, pulse 84, temperature 97.8 ??F (36.6 ??C), resp. rate 20, height 1.676 m (5'6), weight 74.8 kg (165 lb), SpO2 98%, not currently . Exam: General: Pleasant nad looks stated age HEENT: Head nc/at sclera clear PER Neck is supple Lungs: cta b nl effort CV: RRR no m/r/g no le edema Abd: soft, ttp ruq and epigastric region Neuro: Cn 2-12 grossly intact and mcfarland Alert and oriented affect appropriate Skin: W/d no c/c Data: Results for orders placed or performed during the hospital encounter of 09/18/24 US Abdomen Limited Status: None Narrative EXAM: ULTRASOUND ABDOMEN LIMITED - RIGHT UPPER QUADRANT LOCATION: [facility] DATE/TIME: 09/18/2024 1:02 AM CDT INDICATION: Right upper quadrant pain. COMPARISON: 11/27/2022 - CT abdomen and pelvis. TECHNIQUE: Limited abdominal ultrasound. FINDINGS: GALLBLADDER: Several small gallstones within a mildly distended gallbladder. Slight gallbladder wall thickening. No pericholecystic fluid. The electrophysiology technologist reports that the patient has focal tenderness when scanning over the gallbladder. BILE DUCTS: No intra or extrahepatic biliary dilatation. The common duct measures 0.4 cm in diameter. LIVER: Normal echogenicity. No visualized masses. The portal vein is patent with flow in the normaldirection. RIGHT KIDNEY: 9.0 cm in length. Normal echogenicity. No intrarenal collecting system dilatation, calculi, or masses. OTHER: No free fluid in the upper right hemiabdomen. Impression IMPRESSION: 1. Several small gallstones are present within a mildly distended and slightly thick-walled gallbladder. Additionally, the electrophysiology technologist reports that the patient has focal tenderness over the gallbladder. These findings are at least mildly to moderately suspicious for acute cholecystitis. Recommend clinical correlation. If desired, a HIDA scan could be considered for confirmation of acute cholecystitis. 2. No biliary dilatation. Comprehensive metabolic panel Status: Abnormal Result Value Ref Range Sodium 136 135 - 145 mmol/L Potassium 4.1 3.4 - 5.3 mmol/L Carbon Dioxide (CO2) 23 22 - 29 mmol/L Anion Gap 10 7 - 15 mmol/L Urea Nitrogen 14.7 6.0 - 20.0 mg/dL Creatinine 0.92 0.51 - 0.95 mg/dL GFR Estimate 79 >60 mL/min/1.73m2 Calcium 9.4 8.8 - 10.4 mg/dL Chloride 103 98 - 107 mmol/L Glucose 90 70 - 99 mg/dL Alkaline Phosphatase 64 40 - 150 U/L AST 71 (H) 0 - 45 U/L ALT 50 0 - 50 U/L Protein Total 6.9 6.4 - 8.3 g/dL Albumin 4.4 3.5 - 5.2 g/dL Bilirubin Total 0.4 <=1.2 mg/dL [place] Draw Status: None Narrative The following orders were created for panel order [place] Draw. Procedure Abnormality Status --------- ------ Extra Blue Top Tube[[id number]] Final result Extra Red Top Tube[[id number]] Final result Please view results for these tests on the individual orders. Lipase Status: Abnormal Result Value Ref Range Lipase 73 (H) 13 - 60 U/L Troponin T, High Sensitivity Status: Normal Result Value Ref Range Troponin T, High Sensitivity <6 <=14 ng/L CBC with platelets and differential Status: None Result Value Ref Range WBC Count 8.1 4.0 - 11.0 10e3/uL RBC Count 4.68 3.80 - 5.20 10e6/uL Hemoglobin 14.2 11.7 - 15.7 g/dL Hematocrit 41.0 35.0 - 47.0 % MCV 88 78 - 100 fL MCH 30.3 26.5 - 33.0 pg MCHC 34.6 31.5 - 36.5 g/dL RDW 11.9 10.0 - 15.0 % Platelet Count 287 150 - 450 10e3/uL % Neutrophils 59 % % Lymphocytes 35 % % Monocytes 4 % % Eosinophils 1 % % Basophils 1 % % Immature Granulocytes 0 % NRBCs per 100 WBC 0 <1 /100 Absolute Neutrophils 4.8 1.6 - 8.3 10e3/uL Absolute Lymphocytes 2.8 0.8 - 5.3 10e3/uL Absolute Monocytes 0.4 0.0 - 1.3 10e3/uL Absolute Eosinophils 0.1 0.0 - 0.7 10e3/uL Absolute Basophils 0.1 0.0 - 0.2 10e3/uL Absolute Immature Granulocytes 0.0 <=0.4 10e3/uL Absolute NRBCs 0.0 10e3/uL Extra Blue Top Tube Status: None Result Value Ref Range Hold Specimen JIC Extra Red Top Tube Status: None Result Value Ref Range Hold Specimen JIC EKG 12-lead, tracing only Status: None (Preliminary result) Result Value Ref Range Systolic Blood Pressure mmHg Diastolic Blood Pressure mmHg Ventricular Rate 79 BPM Atrial Rate BPM MO Interval ms QRS Duration 80 ms QT 398 ms QTc 456 ms P [place] degrees R AXIS 17 degrees T [place] 62 degrees Interpretation ECG Accelerated Junctional rhythm Low voltage QRS Poor R-wave progression ; consider anterior infarct, lead placement, or normal variant Abnormal ECG No previous ECGs available CBC with Platelets & Differential Status: None Narrative The following orders were created for panel order CBC with Platelets & Differential. Procedure Abnormality Status --------- ------ CBC with platelets and ...[[id number]] Final result Please view results for these tests on the individual orders. documented in this encounter Consult Notes * Satnam Johnson MD - 09/18/2024 2:32 PM CDTAssociated Order(s): SURGERY GENERAL IP CONSULT General Surgery Consultation Yen Milan Age: [age] year old Date of : 1980 Date of Admission: 09/18/2024 Reason for consult: Cholecystitis Requesting physician: Dr Parikh Assessment and Plan: Assessment: #acute cholecystitis Her exam, labs, and imaging are consistent with acute cholecystitis. Comorbidities: has a past medical history of Arthritis, Depressive disorder, DUB (dysfunctional uterine bleeding) (10/11/2008), Endometriosis, site unspecified, Hypertension, Lumbar radiculopathy (01/03/2013), Menorrhagia (01/24/2009), depression, R UVJ obstructing stone (10/17/2016), S/P section (08/11/2015), and Thyroid activity decreased. Plan: I have offered the patient a laparoscopic cholecystectomy, today. We have discussed the indication, alternatives, risks and expected recovery. Specifically we have discussed incisions, scarring, postoperative infections, anesthesia, bleeding, blood transfusion, open conversion, common bile duct injury, injury to intra-abdominal organs, retained common bile duct stone, bile leak, DVT, PE, hernia, post cholecystectomy diarrhea, recovery, postoperative dietary restrictions and physical limitations. We have discussed the recommended interventions and treatments for these complications. All questions have been answered to the best of my ability. She elects to proceed with surgery. Will plan to discharge to home after surgery today unless complications arise. Chief Complaint: Abdominal pain, right upper quadrant History is obtained from the patient. History of Present Illness: Yen Milan is a 43 year old female who presented to the ED today with severe right upper quadrant and epigastric abdominal pain. The pain started at 11 pm last night. She had nausea but no vomiting. She denies any fevers. The pain persisted throughout the day today and has only mildly improved with pain medications. She has a surgical history of C-sections and appendectomy. 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 Past Medical History: Past Medical History: Diagnosis Date Arthritis Depressive disorder DUB (dysfunctional uterine bleeding) 10/11/2008 Endometriosis, site unspecified Endometriosis Hypertension only with Lumbar radiculopathy 01/03/2013 Menorrhagia 01/24/2009 depression counseling and medication R UVJ obstructing stone 10/17/2016 S/P section 08/11/2015 Thyroid activity decreased Past Surgical History: Past Surgical History: Procedure Laterality Date APPENDECTOMY 2003 separate from the laparoscopy SECTION 11/06/2012 Procedure: SECTION; section for failure to progress; Surgeon: Leyda Ramires MD; Location: [facility] SECTION N/A 08/11/2015 Procedure: SECTION; Surgeon: Reena Sanchez MD; Location: [facility] L+[facility] SECTION N/A 07/01/2017 Procedure: SECTION;; Surgeon: Loraine Taylor MD; Location: [facility] L+[facility] HC TOOTH EXTRACTION W/FORCEP LAPAROSCOPIC ABLATION ENDOMETRIOSIS 2003 WRIST SURGERY Left 2009 ZZC NONSPECIFIC PROCEDURE cauterize endometriosis via laparoscopy 2003 Social History: Social History Tobacco Use Smoking status: Never Smokeless tobacco: Never Substance Use Topics Alcohol use: Yes Comment: Rare Family History: Family History Problem Relation Age of Onset Hypertension Mother Anxiety Disorder Mother Thyroid Disease Mother Thyroid Disease Sister Cancer - colorectal Maternal Grandfather Diabetes Maternal Grandfather Colon Cancer Maternal Grandfather C.A.D. Paternal Grandmother Coronary Artery Disease Paternal Grandmother Allergies: Allergies Allergen Reactions Seasonal Allergies Medications: Current Facility-Administered Medications Medication Dose Route Frequency Provider Last Rate Last Admin [Auto Hold] acetaminophen (TYLENOL) tablet 650 mg 650 mg Oral Q4H PRN Randee Parikh MD Or [Auto Hold] acetaminophen (TYLENOL) Suppository 650 mg 650 mg Rectal Q4H PRN Randee Parikh MD acetaminophen (TYLENOL) tablet 650 mg 650 mg Oral Once PRN Satnam Johnson MD albuterol (PROVENTIL) neb solution 2.5 mg 2.5 mg Nebulization Q4H PRN Noel Burton MD [Auto Hold] ampicillin-sulbactam (UNASYN) 3 g vial to attach to NS 100 mL bag 3 g Intravenous Q6H Randee Parikh MD 3 g at 09/18/24 0816 [Auto Hold] artificial saliva (BIOTENE MT) solution 1 spray 1 spray Mouth/Throat 4x Daily PRN Randee Parikh MD [Auto Hold] benzocaine-menthol (CHLORASEPTIC) 6-10 MG lozenge 1 lozenge 1 lozenge Buccal Q1H PRN Randee Parikh MD [Auto Hold] calcium carbonate (TUMS) chewable tablet 1,000 mg 1,000 mg Oral BID PRN Randee Parikh MD dexAMETHasone (DECADRON) injection 4 mg 4 mg Intravenous Once PRN Noel Burton MD fentaNYL (PF) (SUBLIMAZE) injection 25 mcg 25 mcg Intravenous Q5 Min PRN Noel Burton MD fentaNYL (PF) (SUBLIMAZE) injection 50 mcg 50 mcg Intravenous Q5 Min PRN Noel Burton MD 50 mcg at 09/18/24 1538 hydrALAZINE (APRESOLINE) injection 2.5-5 mg 2.5-5 mg Intravenous Q10 Min PRN Noel Burton MD HYDROmorphone (DILAUDID) injection 0.2 mg 0.2 mg Intravenous Q5 Min PRN Noel Burton MD HYDROmorphone (DILAUDID) injection 0.4 mg 0.4 mg Intravenous Q5 Min PRN Noel Burton MD ketorolac (TORADOL) injection 15 mg 15 mg Intravenous Once PRN Noel Burton MD [Auto Hold] ketorolac (TORADOL) injection 30 mg 30 mg Intravenous Q6H PRN Randee Parikh MD labetalol (NORMODYNE/TRANDATE) injection 5 mg 5 mg Intravenous Q5 Min PRN Noel Burton MD lactated ringers infusion Intravenous Continuous Noel Burton MD [Auto Hold] lidocaine (LMX4) cream Topical Q1H PRN Randee Parikh MD [Auto Hold] lidocaine 1 % 0.1-1 mL 0.1-1 mL Other Q1H PRN Randee Parikh MD [Auto Hold] menthol-zinc oxide (CALMOSEPTINE) 0.44-20.6 % ointment OINT Topical 4x Daily PRN Randee Parikh MD meperidine (DEMEROL) injection 12.5 mg 12.5 mg Intravenous Q5 Min PRN Noel Burton MD [Auto Hold] miconazole (MICATIN) 2 % cream Topical BID PRN Randee Parikh MD [Auto Hold] miconazole (MICATIN) 2 % powder Topical BID PRN Randee Parikh MD [Auto Hold] morphine (PF) injection 1 mg 1 mg Intravenous Q3H PRN Randee Parikh MD [Auto Hold] morphine (PF) injection 2 mg 2 mg Intravenous Q3H PRN Randee Parikh MD 2 mg at 09/18/24 0827 naloxone (NARCAN) injection 0.1 mg 0.1 mg Intravenous Q2 Min PRN Noel Burton MD [Auto Hold] naloxone (NARCAN) injection 0.2 mg 0.2 mg Intravenous Q2 Min PRN Randee Parikh MD Or [Auto Hold] naloxone (NARCAN) injection 0.4 mg 0.4 mg Intravenous Q2 Min PRN Randee Parikh MD Or [Auto Hold] naloxone (NARCAN) injection 0.2 mg 0.2 mg Intramuscular Q2 Min PRN Randee Parikh MD Or [Auto Hold] naloxone (NARCAN) injection 0.4 mg 0.4 mg Intramuscular Q2 Min PRN Randee Parikh MD [Auto Hold] ondansetron (ZOFRAN ODT) ODT tab 4 mg 4 mg Oral Q6H PRN Randee aPrikh MD Or [Auto Hold] ondansetron (ZOFRAN) injection 4 mg 4 mg Intravenous Q6H PRN Randee Parikh MD 4 mg at 09/18/24 0826 ondansetron (ZOFRAN ODT) ODT tab 4 mg 4 mg Oral Q30 Min PRN Noel Burton MD Or ondansetron (ZOFRAN) injection 4 mg 4 mg Intravenous Q30 Min PRN Noel Burton MD oxyCODONE (ROXICODONE) tablet 5 mg 5 mg Oral Once PRN Satnam Johnson MD [Auto Hold] polyethylene glycol (MIRALAX) Packet 17 g 17 g Oral Daily Randee Parikh MD [Auto Hold] prochlorperazine (COMPAZINE) injection 10 mg 10 mg Intravenous Q6H PRN Randee Parikh MD Or [Auto Hold] prochlorperazine (COMPAZINE) tablet 10 mg 10 mg Oral Q6H PRN Randee Parikh MD prochlorperazine (COMPAZINE) injection 5 mg 5 mg Intravenous Q6H PRN Noel Burton MD [Auto Hold] senna-docusate (SENOKOT-S/PERICOLACE) 8.6-50 MG per tablet 1 tablet 1 tablet Oral BID PRN Randee Parikh MD Or [Auto Hold] senna-docusate (SENOKOT-S/PERICOLACE) 8.6-50 MG per tablet 2 tablet 2 tablet Oral BID PRN Randee Parikh MD [Auto Hold] sodium chloride (PF) 0.9% PF flush 3 mL 3 mL Intracatheter Q8H Randee Parikh MD 3 mL at 09/18/24 0341 [Auto Hold] sodium chloride (PF) 0.9% PF flush 3 mL 3 mL Intracatheter q1 min prn Randee Parikh MD sodium chloride 0.9 % infusion Intravenous Continuous Randee Parikh MD 50 mL/hr at 09/18/24 0351 New Bag at 09/18/24 0351 Current Facility-Administered Medications Medication Dose Route Frequency Provider Last Rate Last Admin [Auto Hold] ampicillin-sulbactam (UNASYN) 3 g vial to attach to NS 100 mL bag 3 g Intravenous Q6H Randee Parikh MD 3 g at 09/18/24 0816 [Auto Hold] polyethylene glycol (MIRALAX) Packet 17 g 17 g Oral Daily Randee Parikh MD [Auto Hold] sodium chloride (PF) 0.9% PF flush 3 mL 3 mL Intracatheter Q8H Randee Parikh MD 3 mL at 09/18/24 0341 Review of Systems: The 10 point review of systems is negative other than noted in the HPI. Physical Exam: BP 137/86 Pulse 113 Temp 98.2 ??F (36.8 ??C) (Temporal) Resp 19 Ht 1.676 m (5' 6) Wt 74.8 kg (165 lb) SpO2 100% BMI 26.63 kg/m?? General - Well developed, well nourished female in no apparent distress HEENT: no scleral icterus Neck: Supple without thyromegaly or masses Lymphatic: No cervical, or supraclavicular lymphadenopathy Lungs: normal effort on RA Heart: regular rate and rhythm Abdomen: soft, not distended, tender to palpation in the RUQ otherwise not tender Extremities: Warm without edema Neurologic: nonfocal Psychiatric: Mood and affect appropriate Skin: Without lesions, rashes, or jaundice Data: WBC - Lab Results Component Value Date WBC 8.1 09/18/2024 HgB - Lab Results Component Value Date HGB 14.2 09/18/2024 Plt- Lab Results Component Value Date PLT 287 09/18/2024 Liver Function Studies - Recent Labs Lab Test 09/18/24 0659 PROTTOTAL 6.1* ALBUMIN 4.0 BILITOTAL 1.2 ALKPHOS 72 AST 397* ALT 324* Lipase- Lab Results Component Value Date LIPASE 73 (H) 09/18/2024 Imaging: All imaging studies reviewed by mt - US with several gallstones, normal sized CBD Results for orders placed or performed during the hospital encounter of 09/18/24 US Abdomen Limited Narrative EXAM: ULTRASOUND ABDOMEN LIMITED - RIGHT UPPER QUADRANT LOCATION: [facility] DATE/TIME: 09/18/2024 1:02 AM CDT INDICATION: Right upper quadrant pain. COMPARISON: 11/27/2022 - CT abdomen and pelvis. TECHNIQUE: Limited abdominal ultrasound. FINDINGS: GALLBLADDER: Several small gallstones within a mildly distended gallbladder. Slight gallbladder wall thickening. No pericholecystic fluid. The electrophysiology technologist reports that the patient has focal tenderness when scanning over the gallbladder. BILE DUCTS: No intra or extrahepatic biliary dilatation. The common duct measures 0.4 cm in diameter. LIVER: Normal echogenicity. No visualized masses. The portal vein is patent with flow in the normaldirection. RIGHT KIDNEY: 9.0 cm in length. Normal echogenicity. No intrarenal collecting system dilatation, calculi, or masses. OTHER: No free fluid in the upper right hemiabdomen. Impression IMPRESSION: 1. Several small gallstones are present within a mildly distended and slightly thick-walled gallbladder. Additionally, the electrophysiology technologist reports that the patient has focal tenderness over the gallbladder. These findings are at least mildly to moderately suspicious for acute cholecystitis. Recommend clinical correlation. If desired, a HIDA scan could be considered for confirmation of acute cholecystitis. 2. No biliary dilatation. Satnam Johnson MD documented in this encounter ED Notes * Rajat Ba RN - 09/18/2024 1:47 AM CDT [facility] ED Nurse Handoff Report ED Chief complaint: Abdominal Pain . ED Diagnosis: Final diagnoses: Acute cholecystitis Allergies: Allergies Allergen Reactions Seasonal Allergies Code Status: Full Code Activity level - Baseline/Home: independent. Activity Level - Current: standby. Lift room needed: No. 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 Infection: Not Applicable. Respiratory status: Room air Vital Signs (within 30 minutes): Vitals: 09/18/24 0030 09/18/24 0107 09/18/24 0120 09/18/24 0140 BP: (!) 130/111 131/85 138/85 (!) 138/94 Pulse: 87 83 83 86 Resp: Temp: SpO2: 98% 99% 99% 97% Weight: Height: Cardiac Rhythm: , Pain level: Patient confused: No. Patient Falls Risk: patient and family education, assistive device/personal items within reach, andactivity supervised. Elimination Status: Unable to void yet Patient Report - Initial Complaint: Abdominal Pain. 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 Patient reports sudden onset nausea, upper central abdominal pain, and diaphoresis beginning 45 minutes ago while getting ready for bed. The pain has made deep breaths difficult. She also reports a headache at dinner tonight for which she took Tylenol and ibuprofen. She otherwise felt fine throughout the day today. Abdominal pain does not radiate. She has never before had abdominal pain as severe as today. The nausea has improved, but she still currently endorses m ild nausea. Denies any back pain or lower abdominal pain. She had spaghetti and caesar salad for dinner. Patient is on Zepbound. No allergies to medication. History of section x3, appendectomy, and laparoscopic ablation for endometriosis. No history of cholecystectomy. Patient is alert and oriented, able to make needs known. Endorses pain. Abnormal Results: Labs Ordered and Resulted from Time of ED Arrival to Time of ED Departure COMPREHENSIVE METABOLIC PANEL - Abnormal Result Value Sodium 136 Potassium 4.1 Carbon Dioxide (CO2) 23 Anion Gap 10 Urea Nitrogen 14.7 Creatinine 0.92 GFR Estimate 79 Calcium 9.4 Chloride 103 Glucose 90 Alkaline Phosphatase 64 AST 71 (*) ALT 50 Protein Total 6.9 Albumin 4.4 Bilirubin Total 0.4 LIPASE - Abnormal Lipase 73 (*) TROPONIN T, HIGH SENSITIVITY - Normal Troponin T, High Sensitivity <6 CBC WITH PLATELETS AND DIFFERENTIAL WBC Count 8.1 RBC Count 4.68 Hemoglobin 14.2 Hematocrit 41.0 MCV 88 MCH 30.3 MCHC 34.6 RDW 11.9 Platelet Count 287 % Neutrophils 59 % Lymphocytes 35 % Monocytes 4 % Eosinophils 1 % Basophils 1 % Immature Granulocytes 0 NRBCs per 100 WBC 0 Absolute Neutrophils 4.8 Absolute Lymphocytes 2.8 Absolute Monocytes 0.4 Absolute Eosinophils 0.1 Absolute Basophils 0.1 Absolute Immature Granulocytes 0.0 Absolute NRBCs 0.0 ROUTINE UA WITH MICROSCOPIC REFLEX TO CULTURE US Abdomen Limited Final Result IMPRESSION: 1. Several small gallstones are present within a mildly distended and slightly thick-walled gallbladder. Additionally, the electrophysiology technologist reports that the patient has focal tenderness over the gallbladder. These findings are at least mildly to moderately suspicious for acute cholecystitis. Recommend clinical correlation. If desired, a HIDA scan could be considered for confirmation of acute cholecystitis. 2. No biliary dilatation. Treatments provided: See MAR Family Comments: at bedside OBS brochure/video discussed/provided to patient: No ED Medications: Medications morphine (PF) injection 4 mg (4 mg Intravenous $Given 09/18/24 0107) ampicillin-sulbactam (UNASYN) 3 g vial to attach to NS 100 mL bag (has no administration in time range) sodium chloride 0.9% BOLUS 1,000 mL (1,000 mLs Intravenous $New Bag 09/18/24 0017) ondansetron (ZOFRAN) injection 4 mg (4 mg Intravenous $Given 09/18/24 0018) ketorolac (TORADOL) injection 15 mg (15 mg Intravenous $Given 09/18/24 0018) ondansetron (ZOFRAN) injection 4 mg (4 mg Intravenous $Given 09/18/24 0113) Drips infusing: Yes For the majority of the shift this patient was Green. Interventions performed were NA. Sepsis treatment initiated: No Cares/treatment/interventions/medications to be completed following ED care: See Orders ED Nurse Name: Roxana Ibrahim RN 1:47 AM RECEIVING UNIT ED HANDOFF REVIEW Above ED Nurse Handoff Report was reviewed: Yes Reviewed by: Rajat Ba RN on September 18, 2024 at 2:18 AM * Roxana Ibrahim RN - 09/18/2024 12:26 AM CDT Pt here by EMS for sudden epigastric abdominal pain around 2300 without radiation. Pt states had headache earlier in the evening, took ibuprofen around 1900. Hx of appendectomy, c-sections and endometriosis. BG 122 with EMS. Pt notes she is also trying to taper off low-dose zepbound. Endorses nausea. 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 Patient reports sudden onset nausea, upper central abdominal pain, and diaphoresis beginning 45 minutes ago while getting ready for bed. The pain has made deep breaths difficult. She also reports a headache at dinner tonight for which she took Tylenol and ibuprofen. She otherwise felt fine throughout the day today. Abdominal pain does not radiate. She has never before had abdominal pain as severe astoday. The nausea has improved, but she still currently endorses mild nausea. Denies any back pain or lower abdominal pain. She had spaghetti and caesar salad for dinner. Patient is on Zepbound. No allergies to medication. History of section x3, appendectomy, and laparoscopic ablation for endometriosis. No history of cholecystectomy. Independent Historian None Review of External Notes None Past Medical History Medical History and Problem List Arthritis Depressive disorder DUB (dysfunctional uterine bleeding) Endometriosis Hypertension Lumbar radiculopathy Menorrhagia depression R UVJ obstructing stone section Thyroid activity decreased Hypercholesteremia Medications Wellbutrin Buspar Celexa Catapres Larissia Linzess Zofran Imitrex Zepbound Prozac Roxicodone Surgical History Appendectomy section x3 Laparoscopic ablation endometriosis Wrist surgery, left Physical Exam Patient Vitals for the past 24 hrs: BP Temp Pulse Resp SpO2 Height Weight 06/28/25 0140 (!) 138/94 -- 86 -- 97 % -- -- 09/18/24 0120 138/85 -- 83 -- 99 % -- -- 09/18/24 0107 131/85 -- 83 -- 99 % -- -- 09/18/24 0030 (!) 130/111 -- 87 -- 98 % -- -- 09/18/24 0015 (!) 135/91 -- 85 -- 97 % -- -- 09/18/24 0010 -- -- -- -- -- 1.676 m (5' 6) 74.8 kg (165 lb) 09/18/24 0005 (!) 141/94 97.8 ??F (36.6 ??C) 92 20 100 % -- -- Physical Exam General: Patient is awake, alert and interactive when I enter the room. Appears uncomfortable. Head: The scalp, face, and head appear normal Eyes: Conjunctivae and sclerae are normal Neck: Normal range of motion. CV: Regular rate. Resp: No respiratory distress. GI: RUQ tenderness but abdomen is soft, no rigidity. No evidence of pulsatile mass. No fluid waves or evidence of ascites. No distension. No hernias or bruising are noted in detailed exam. No CVA tenderness. MS: Normal tone. Skin: Normal capillary refill noted Neuro: Speech is normal and fluent. Face is symmetric. Moving all extremities. Psych: Normal affect. Appropriate interactions. Diagnostics Lab Results Labs Ordered and Resulted from Time of ED Arrival to Time of ED Departure COMPREHENSIVE METABOLIC PANEL - Abnormal Result Value Sodium 136 Potassium 4.1 Carbon Dioxide (CO2) 23 Anion Gap 10 Urea Nitrogen 14.7 Creatinine 0.92 GFR Estimate 79 Calcium 9.4 Chloride 103 Glucose 90 Alkaline Phosphatase 64 AST 71 (*) ALT 50 Protein Total 6.9 Albumin 4.4 Bilirubin Total 0.4 LIPASE - Abnormal Lipase 73 (*) TROPONIN T, HIGH SENSITIVITY - Normal Troponin T, High Sensitivity <6 CBC WITH PLATELETS AND DIFFERENTIAL WBC Count 8.1 RBC Count 4.68 Hemoglobin 14.2 Hematocrit 41.0 MCV 88 MCH 30.3 MCHC 34.6 RDW 11.9 Platelet Count 287 % Neutrophils 59 % Lymphocytes 35 % Monocytes 4 % Eosinophils 1 % Basophils 1 % Immature Granulocytes 0 NRBCs per 100 WBC 0 Absolute Neutrophils 4.8 Absolute Lymphocytes 2.8 Absolute Monocytes 0.4 Absolute Eosinophils 0.1 Absolute Basophils 0.1 Absolute Immature Granulocytes 0.0 Absolute NRBCs 0.0 ROUTINE UA WITH MICROSCOPIC REFLEX TO CULTURE Imaging US Abdomen Limited Final Result IMPRESSION: 1. Several small gallstones are present within a mildly distended and slightly thick-walled gallbladder. Additionally, the electrophysiology technologist reports that the patient has focal tenderness over the gallbladder. These findings are at least mildly to moderately suspicious for acute cholecystitis. Recommend clinical correlation. If desired, a HIDA scan could be considered for confirmation of acute cholecystitis. 2. No biliary dilatation. EKG ECG taken at 1811, ECG read at 0034 Sinus rhythm Low voltage QRS Poor R-wave progression; consider anterior infarct, lead placement, or normal variant Rate 79 bpm. MO interval * ms. QRS duration 80 ms. QT/QTc 398/456 ms. P-R-T axes * 17 62. Independent Interpretation None ED Course Medications Administered Medications morphine (PF) injection 4 mg (4 mg Intravenous $Given 09/18/24 0107) ampicillin-sulbactam (UNASYN) 3 g vial to attach to NS 100 mL bag (3 g Intravenous $New Bag ) sodium chloride 0.9% BOLUS 1,000 mL (1,000 mLs Intravenous $New Bag 09/18/24 0017) ondansetron (ZOFRAN) injection 4 mg (4 mg Intravenous $Given 09/18/24 0018) ketorolac (TORADOL) injection 15 mg (15 mg Intravenous $Given 09/18/24 0018) ondansetron (ZOFRAN) injection 4 mg (4 mg Intravenous $Given 09/18/24 0113) Procedures Procedures Discussion of Management None ED Course ED Course as of 09/18/24 0203 Sat Sep 18, 2024 0010 I obtained history and examined the patient as noted above. 0123 I rechecked and updated the patient. Repeat abdominal exam. She still has acute tenderness to the right upper quadrant. [address] Randee Parikh of the hospitalist team regarding the patient, who accepted the patient for admission. Additional Documentation None Medical Decision Making / Diagnosis VERENA Milan is a 43 year old female who presents emergency department with acute onset of upper abdominal pain and nausea 45 minutes prior to arrival. Upon initial evaluation she is hemodynamically stable and afebrile. She is oxygenating well on room air. She looks acutely uncomfortable and has some right upper quadrant tenderness with guarding. Right upper quadrant ultrasound was obtained which shows several gallstones with gallbladder wall thickening, gallbladder distention and sonographicMurphy sign. Very mildly elevated AST and lipase. No significant fever or leukocytosis. However given her pain, ultrasound and clinical exam, I am concerned about acute cholecystitis. Patient will bemade n.p.o., started on antibiotics and admitted for general surgery consultation. Disposition The patient was admitted to the hospital. Diagnosis ICD-10-CM 1. Acute cholecystitis K81.0 Scribe Disclosure: I, Alessandro Cesar, am serving as a scribe at 12:16 AM on 09/18/2024 to document services personally performed by Tyrell Aguero MD based on my observations and the provider's statements to me. Tyrell Aguero MD 09/18/24 0204 * Roxana Ibrahim RN - 09/18/2024 12:01 AM CDT Bed: ED08 Expected date: Expected time: Means of arrival: Comments: [id number] documented in this encounter Miscellaneous Notes * Brief Op Note - Satnam Johnson MD - 09/18/2024 3:17 PM CDT [facility] Brief Operative Note Pre-operative diagnosis: Acute cholecystitis [K81.0] Post-operative diagnosis Same as pre-operative diagnosis Procedure: CHOLECYSTECTOMY, ROBOT-ASSISTED, LAPAROSCOPIC, USING DA NAA XI, N/A - Abdomen Surgeon: Surgeons and Role: * Satnam Johnson MD - Primary * Damon Philip PA-C - Assisting Anesthesia: General Estimated Blood Loss: Minimal Drains: None Specimens: ID Type Source Tests Collected by Time Destination 1 : Gallbladder Tissue Gallbladder SURGICAL PATHOLOGY EXAM Satnam Johnson MD 09/18/2024 3:06 PM Findings: Gallbladder with mild edema especially at the fundus. Complications: None. Implants: * No implants in log * * Op Note - Satnam Johnson MD - 09/18/2024 2:44 PM CDT [facility] General Surgery Operative Note Pre-operative diagnosis: acute cholecystitis Post-operative diagnosis: same Procedure: Robotic assisted laparoscopic cholecystectomy Surgeon: Satnam Johnson MD Physician Recruiter(s): Damon Philip PA-C The Physician Physician Recruiter was medically necessary for their expertise in prepping, robotic instrumentexchange, passing of material through port sites, closure of port sites, suturing and retraction. Anesthesia: general Estimated blood loss: Specimen: 5 cc gallbladder and contents INDICATION FOR OPERATION: This is a 43 year old female who presented to ED with abdominal pain. Studies including ultrasound were consistent with acute cholecystitis. We discussed robotic assisted laparoscopic cholecystectomy and the patient agreed to proceed after hearing the risks and benefits. DESCRIPTION OF PROCEDURE: The patient was taken to the operating room and placed on the table in supine position. General endotracheal anesthesia was induced and the abdomen was prepped and draped instandard sterile fashion. Access was gained in the left upper quadrant at [place] point with a 5mm 0 degree laparscopic with a visiport robotic trocar under direct visualization. The abdomen was insufflated with CO2. Three additional 8mm robotic ports were placed across the mid-abdomen. The patient was placed in reverse Trendelenburg and right side up. The robot was then docked. The fundus of the gallbladder was grasped and retracted cephalad with a prograsp. The gallbladder appeared mildly edematous especially at the fundus. The infundibulum was grasped and retracted laterally. The peritoneum over the medial and lateral aspects of the triangle of Calot was taken down withblunt dissection and cautery. The cystic duct and artery were freed up from surrounding tissues. The triangle of Calot was skeletonized revealing the critical view of safety. Intraoperative fluorescence was used to evaluate the biliary anatomy with no additional biliary structures lighting up otherthan the cystic duct and common bile duct. The duct was clipped twice proximally, once distally, and the cystic artery was clipped once proximally, then both were transected, using cautery on the distal side of the cystic duct. The gallbladder was then removed from the liver using the cautery. Before the gallbladder was completely removed from the cystic plate fluorescence was again used to evaluate for any additional biliary structures and none seen. The gallbladder was passed into an Endocatch bag in the left upper quadrant port site.We observed the right upper quadrant carefully for hemostasis. Hemostasis was assured. The endocatch bag was removed from the abdomen and the fascial defect closed with a 3-0 Stratafix suture. The robot was then undocked. The robotic ports were removed and hemostatic and the pneumoperitoneum evacuated. All of the incisions were closed with interrupted 4-0 Vicryl subcuticular sutures and Steri-Strips.The patient tolerated the procedure well. Sponge and instrument counts were correct. FINDINGS: 1.) acutely inflamed gallbladder with mild edema especially at the fundus Satnam Johnson MD * Plan of Care - Mera Christian RN - 09/18/2024 12:39 PM CDT Goal Outcome Evaluation: Pt voided and CHG wipes and taken down to surgery for lap kaylee in wheelchair. Morphine 2mg x1 this am as well as zofran with relief of symptoms. Pain RUQ to right shoulder. at bedside. * Pharmacy-Admission Medication History - Chadwick Davies - 09/18/2024 9:51 AM CDT Chief Environmental Commitment Officer Admission Medication History Admission medication history is complete. The information provided in this note is only as accurateas the sources available at the time of the update. Information Source(s): Patient and CareEverywhere/SureScripts via in-person Pertinent Information: Pt is on the 3rd week of the cycle. She wasn't sure which day Changes made to INDEPENDENT DISTRIBUTOR medication list: Added: None Deleted: Compounded Semaglutide and clonidine Changed: Glycopyrrolate TID PRN-->QID PRN Allergies reviewed with patient and updates made in EHR: yes Medication History Completed By: Chadwick Davies 09/18/2024 9:51 AM INDEPENDENT DISTRIBUTOR Med List Medication Sig Note Last Dose/Taking buPROPion (WELLBUTRIN XL) 150 MG 24 hr tablet Take 150 mg by mouth every morning. Take with the 300mg to make 450 mg 09/17/2024 Morning buPROPion (WELLBUTRIN XL) 300 MG 24 hr tablet Take 300 mg by mouth every morning. Take with the 150mg to make 450 mg 09/17/2024 Morning busPIRone (BUSPAR) 10 MG tablet Take 10 mg by mouth 2 times daily. 09/17/2024 Bedtime citalopram (CELEXA) 40 MG tablet Take 40 mg by mouth at bedtime. 09/17/2024 Bedtime glycopyrrolate (ROBINUL) 1 MG tablet Take 1 mg by mouth 4 times daily as needed. 09/17/2024 Bedtime LARISSIA 0.1-20 MG-MCG tablet TAKE 1 TABLET BY MOUTH ONCE DAILY. TAKE ONLY ACTIVE TABLETS CONTINUOUSLY AND SKIP PLACEBO TABLETS 09/17/2024 Morning linaclotide (LINZESS) 290 MCG capsule Take 290 mcg by mouth every morning (before breakfast) 09/17/2024 Morning ondansetron (ZOFRAN ODT) 4 MG ODT tab Take 1 tablet (4 mg) by mouth every 8 hours as needed for nausea. Taking As Needed SUMAtriptan (IMITREX) 50 MG tablet Take 1-2 tablets (50-100 mg) by mouth at onset of headache for migraine. May repeat in 2 hrs. Max 200 mg in 24 hrs Taking As Needed tirzepatide-weight management (ZEPBOUND) 2.5 MG/0.5ML vial Inject 0.5 mLs (2.5 mg) subcutaneously once a week. Cell #:[phone] 09/18/2024: Mondays09/13/2024 Cosigned by Glo Rebolledo RPH at 09/18/2024 11:01 AM CDT Associated attestation - Glo Rebolledo RPH - 09/18/2024 11:01 AM CDT Although I was not present for the interview, nor did I personally see the patient, to my knowledgethe internet marketing specialist has compiled the INDEPENDENT DISTRIBUTOR medication list to the best of their ability given the information available at the time. Glo Rebolledo RPH on 09/18/2024 at 11:01 AM * Plan of Care - Rajat Ba RN - 09/18/2024 6:06 AM CDT Goal Outcome Evaluation: Plan of Care Reviewed With: patient Overall Patient Progress: improvingOverall Patient Progress: improving PRIMARY DIAGNOSIS: ACUTE CHOLECYSTITIS OUTPATIENT/OBSERVATION GOALS TO BE MET BEFORE DISCHARGE: 1. Pain Status: Improved but still requiring IV narcotics. 2. Return to near baseline physical activity: Yes 3. Cleared for discharge by consultants (if involved): No Gyroscopic Instrument Tester Nurse Safe discharge environment identified: Yes Barriers to discharge: Yes Entered by: Rajat Ba RN 09/18/2024 4:19 AM Vitals are Temp: 98.2 ??F (36.8 ??C) Temp src: Oral BP: (!) 130/90 Pulse: 87 Resp: 20 SpO2: 98 %. Patient is Alert and Oriented x4. complaining of 7/10 pain in their abdomen. Morphine given for pain. Patient has Normal Saline 0.9% running at 50 mL per hour. Pt is a NPO diet. She is independent with no assistive devices . Unasyn q6, Vss on room air, general surg consulted. Please review provider order for any additional goals. Nurse to notify provider when observation goals have been met and patient is ready for discharge. Problem: Adult Inpatient Plan of Care Goal: Plan of Care Review Description: The Plan of Care Review/Shift note should be completed every shift. The Outcome Evaluation is a brief statement about your assessment that the patient is improving, declining, or no change. This information will be displayed automatically on your shift note. Outcome: Progressing Flowsheets (Taken 09/18/2024 0419) Plan of Care Reviewed With: patient Overall Patient Progress: improving Goal: Patient-Specific Goal (Individualized) Description: You can add care plan individualizations to a care plan. Examples of Individualizationmight be: Parent requests to be called daily at 9am for status, I have a hard time hearing out of my right ear, or Do not touch me to wake me up as it startles me. Outcome: Progressing Goal: Absence of Hospital-Acquired Illness or Injury Outcome: Progressing Intervention: Prevent and Manage VTE (Venous Thromboembolism) Risk Recent Flowsheet Documentation Taken 09/18/2024 0352 by Rajat Ba RN VTE Prevention/Management: SCDs off (sequential compression devices) Goal: Optimal Comfort and Wellbeing Outcome: Progressing Intervention: Monitor Pain and Promote Comfort Recent Flowsheet Documentation Taken 09/18/2024 0341 by Rajat Ba RN Pain Management Interventions: medication (see MAR) Goal: Readiness for Transition of Care Outcome: Progressing Intervention: Mutually Develop Transition Plan Recent Flowsheet Documentation Taken 09/18/2024 0326 by Rajat Ba RN Equipment Currently Used at Home: none documented in this encounter Plan of Treatment Upcoming Encounters Date Type Department Care Team (Late st Contact Info) Description 01/25/2025 11:00 AM DEEP SUBMERGENCE VEHICLE OPERATOR Office Visit [facility] [address] [place] [phone] Kenisha Rodriges PA-C [address] [place] [phone] Pending Results Name Type Priority Associated Diagnoses Date /Time Surgical Pathology Exam Pathology and Cytology Routine 09/18/2024 3:06 PM CDT Scheduled Orders Name Type Priority Associated Diagnoses Order Schedule Surgical Pathology Exam Pathology and Cytology Routine Release Upon Ordering for 1 Occurrences starting 09/18/2024, 1 completed documented as of this encounter Procedures Procedure Name Priority Date/Time Associated Diagnosis Comments CHOLECYSTECTOMY, ROBOT-ASSISTED, LAPAROSCOPIC, USING DA NAA XI 09/18/2024 2:23 PM CDT Acute cholecystitis EXTRA TUBE Routine 09/18/2024 6:59 AM CDT EXTRA PURPLE TOP TUBE Routine 09/18/2024 6:59 AM CDT COMPREHENSIVE METABOLIC PANEL Routine 09/18/2024 6:59 AM CDT US ABDOMEN LIMITED STAT 09/18/2024 1: 02 AM CDT EKG 12-LEAD, TRACING ONLY STAT 09/18/2024 12:18 AM CDT EXTRA TUBE STAT 09/18/2024 12:10 AM CDT EXTRA RED TOP TUBE STAT 09/18/2024 12 :10 AM CDT EXTRA BLUE TOP TUBE STAT 09/18/2024 1 2:10 AM CDT CBC WITH PLATELETS AND DIFFERENTIAL STAT 09/18/2024 12:10 AM CDT TROPONIN T, HIGH SENSITIVITY STAT 09/18/2024 12:10 AM CDT CBC WITH PLATELETS & DIFFERENTIAL STAT 09/18/2024 12:10 AM CDT LIPASE STAT 09/18/2024 12:10 AM CDT COMPREHENSIVE METABOLIC PANEL STAT 09/18/2024 12:10 AM CDT documented in this encounter Results * Extra Purple Top Tube (09/18/2024 6:59 AM CDT) Hold Specimen [facility] 09/18/2024 9:46 AM CDT LABORATORY Blood STRUCTURE OF LEFT UPPER LIMB / Unknown Venipuncture / Unknown 09/18/2024 6:59 AM CDT 09/18/2024 8:37 AM CDT us Randee Parikh MD LAB - BLOOD ORDERABLES Final Res ult LABORATORY [facility] [address] Lab (1st floor, no room number) [place] [address], [facility] * (ABNORMAL) Comprehensive metabolic panel (09/18/2024 6:59 AM CDT) Sodium 140 135 - 145 mmol/L 09/18/2024 7:26 AM CDT LABORATORY Potassium 4.1 3.4 - 5.3 mmol/L 09/18/2024 7:26 AM CDT LABORATORY Carbon Dioxide (CO2) 26 22 - 29 mmol/L 09/18/2024 7:26 AM CDT LABORATORY Anion Gap 6(L) 7 - 15 mmol/L 09/18/2024 7:26 AM CDT LABORATORY Urea Nitrogen 13.8 6.0 - 20.0 mg/dL 09/18/2024 7:26 AM CDT LABORATORY Creatinine 0.94 0.51 - 0.95 mg/dL 09/18/2024 7:26 AM CDT LABORATORY GFR Estimate 77 >60 mL/min/1.7 3m2 09/18/2024 7:26 AM CDT LABORATORY Comment:eGFR calculated usin 2020 CKD-EPI equation. Calcium 8.6(L) 8.8 - 10.4 mg/dL 09/18/2024 7:26 AM CDT LABORATORY Chloride 108(H) 98 - 107 mmol/L 09/18/2024 7:26 AM CDT LABORATORY Glucose 92 70 - 99 mg/dL 09/18/2024 7:26 AM CDT LABORATORY Alkaline Phosphatase 72 40 - 150 U/L 09/18/2024 7:26 AM CDT LABORATORY AST 397(H) 0 - 45 U/L 09/18/2024 7:26 AM CDT LABORATORY ALT 324(H) 0 - 50 U/L 09/18/2024 7:26 AM CDT LABORATORY Protein Total 6.1(L) 6.4 - 8.3 g/dL 09/18/2024 7:26 AM CDT LABORATORY Albumin 4.0 3.5 - 5.2 g/dL 09/18/2024 7:26 AM CDT LABORATORY Bilirubin Total 1.2 <=1.2 mg/dL 09/18/2024 7:26 AM CDT LABORATORY Blood STRUCTURE OF LEFT UPPER LIMB / Unknown Venipuncture / Unknown 09/18/2024 6:59 AM CDT 09/18/2024 7:09 AM CDT us Randee Parikh MD LAB - BLOOD ORDERABLES Final Res ult LABORATORY [facility] [address] Lab (1st floor, no room number) [place] [phone] * US Abdomen Limited (09/18/2024 1:02 AM CDT) Anatomical Region Laterality Modality Abdomen/Pelvis Ultrasound 09/18/2024 1:02 AM CDT Impressions 09/18/2024 1:34 AM CDT IMPRESSION: 1. Several small gallstones are present within a mildly distended and slightly thick-walled gallbladder. Additionally, the electrophysiology technologist reports that the patient has focal tenderness over the gallbladder. These findings are at least mildly to moderately suspicious for acute cholecystitis. Recommend clinical correlation. If desired, a HIDA scan could be considered for confirmation of acute cholecystitis. 2. No biliary dilatation. Narrative 09/18/2024 1:34 AM CDT EXAM: ULTRASOUND ABDOMEN LIMITED - RIGHT UPPER QUADRANT LOCATION: [facility] DATE/TIME: 09/18/2024 1:02 AM CDT INDICATION: Right upper quadrant pain. COMPARISON: 11/27/2022 - CT abdomen and pelvis. TECHNIQUE: Limited abdominal ultrasound. FINDINGS: GALLBLADDER: Several small gallstones within a mildly distended gallbladder. Slight gallbladder wall thickening. No pericholecystic fluid. The electrophysiology technologist reports that the patient has focal tenderness when scanning over the gallbladder. BILE DUCTS: No intra or extrahepatic biliary dilatation. The common duct measures 0.4 cm in diameter. LIVER: Normal echogenicity. No visualized masses. The portal vein is patent with flow in the normal direction. RIGHT KIDNEY: 9.0 cm in length. Normal echogenicity. No intrarenal collecting system dilatation, calculi, or masses. OTHER: No free fluid in the upper right hemiabdomen. Procedure Note Medardo Smith MD - 09/18/2024 EXAM: ULTRASOUND ABDOMEN LIMITED - RIGHT UPPER QUADRANT LOCATION: [facility] DATE/TIME: 09/18/2024 1:02 AM CDT INDICATION: Right upper quadrant pain. COMPARISON: 11/27/2022 - CT abdomen and pelvis. TECHNIQUE: Limited abdominal ultrasound. FINDINGS: GALLBLADDER: Several small gallstones within a mildly distendedgallbladder. Slight gallbladder wall thickening. No pericholecystic fluid.The electrophysiology technologist reports that the patient has focal tendernesswhen scanning over the gallbladder. BILE DUCTS: No intra or extrahepatic biliary dilatation. The common ductmeasures 0.4 cm in diameter. LIVER: Normal echogenicity. No visualized masses. The portal vein ispatent with flow in the normal direction. RIGHT KIDNEY: 9.0 cm in length. Normal echogenicity. No intrarenalcollecting system dilatation, calculi, or masses. OTHER: No free fluid in the upper right hemiabdomen. IMPRESSION: 1. Several small gallstones are present within a mildly distended andslightly thick-walled gallbladder. Additionally, the ultrasoundtechnologist reports that the patient has focal tenderness over thegallbladder. These findings are at least mildly to moderately suspicious for acute cholecystitis. Recommend clinicalcorrelation. If desired, a HIDA scan could be considered for confirmationof acute cholecystitis. 2. No biliary dilatation. us Tyrell Aguero MD [facility] US ORDERABLES Final Result * EKG 12-lead, tracing only (09/18/2024 12:18 AM CDT) Systolic Blood Pressure mmHg RADIOLOGY RESULTS Diastolic Blood Pressure mmHg RADIOLOGY RESULTS Ventricular Rate 79 BPM RAD IOLOGY RESULTS Atrial Rate BPM RADIOLOG Y RESULTS MO Interval ms RADIOLOG Y RESULTS QRS Duration 80 ms RADIOLO GY RESULTS QT 398 ms RADIOLOGY RESULTS QTc 456 ms RADIOLOGY RESULTS P [place] degrees RADIOLOGY RESULTS R AXIS 17 degrees RADIOLOGY RESULTS T [place] 62 degrees RADIOLOGY RESULTS Interpretation ECG Accelerated Junctional rhythm Low voltage QRS Poor R-wave progression ; consider anterior infarct, lead placement, or normal variant Abnormal ECG No previous ECGs available Unconfirmed report - interpretation of this ECG is computer generated - see medical record for final interpretation Confirmed by - EMERGENCY ROOM, PHYSICIAN ([id number]), slot editor Kentrell Damon ([id number]) on 09/20/2024 7:46:26 AM RADIOLOGY RESULTS 09/18/2024 12:1 8 AM CDT 09/20/2024 7:46 AM CDT Tyrell Aguero MD ECG ORDERABLES E dited Result - Final Performing Organization Address City/[facility]/ZIP Co de Phone Number RADIOLOGY RESULTS * Extra Red Top Tube (09/18/2024 12:10 AM CDT) Hold Specimen [facility] 09/18/2024 1:31 AM CDT RH LABORATORY Blood BLOOD SPECIMEN / Unknown Venipuncture / Unknown 09/18/2024 12:10 AM CDT 09/18/2024 12:18 AM CDT Tyrell Aguero MD LAB - BLOOD ORDER YAAKOV Final Result Performing Organization Address [facility] Co de Phone Number [facility] Lab [address] Lab (1st floor, no room number) [address] * Extra Blue Top Tube (09/18/2024 12:10 AM CDT) Hold Specimen [facility] 09/18/2024 1:31 AM CDT RH LABORATORY Blood BLOOD SPECIMEN / Unknown Venipuncture / Unknown 09/18/2024 12:10 AM CDT 09/18/2024 12:18 AM CDT Tyrell Aguero MD LAB - BLOOD ORDER YAAKOV Final Result Performing Organization Address City/[facility]/ZIP Co de Phone Number [facility] Lab [address] Lab (1st floor, no room number) [address] * CBC with platelets and differential (09/18/2024 12:10 AM CDT) WBC Count 8.1 4.0 - 11.0 10e3/uL 09/18/2024 12:22 AM CDT RH LABORATORY RBC Count 4.68 3.80 - 5.20 10e6/uL 09/18/2024 12:22 AM CDT RH LABORATORY Hemoglobin 14.2 11.7 - 15.7 g/dL 09/18/2024 12:22 AM CDT RH LABORATORY Hematocrit 41.0 35.0 - 47.0 % 09/18/2024 12:22 AM CDT RH LABORATORY MCV 88 78 - 100 fL 09/18/2024 12:22 AM CDT RH LABORATORY MCH 30.3 26.5 - 33.0 pg 09/18/2024 12:22 AM CDT RH LABORATORY MCHC 34.6 31.5 - 36.5 g/dL 09/18/2024 12:22 AM CDT RH LABORATORY RDW 11.9 10.0 - 15.0 % 09/18/2024 12:22 AM CDT RH LABORATORY Platelet Count 287 150 - 450 10e3/uL 09/18/2024 12:22 AM CDT [facility] LABORATORY % Neutrophils 59 % 09/18/2024 12:22 AM CDT [facility] LABORATORY % Lymphocytes 35 % 09/18/2024 12:22 AM CDT [facility] LABORATORY % Monocytes 4 % 09/18/2024 12:22 AM CDT [facility] LABORATORY % Eosinophils 1 % 09/18/2024 12:22 AM CDT RH LABORATORY % Basophils 1 % 09/18/2024 12:22 AM CDT RH LABORATORY % Immature Granulocytes 0 % 09/18/2024 12:22 AM CDT RH LABORATORY NRBCs per 100 WBC 0 <1 /100 025 12:22 AM CDT RH LABORATORY Absolute Neutrophils 4.8 1.6 - 8.3 10e3/uL 09/18/2024 12:22 AM CDT RH LABORATORY Absolute Lymphocytes 2.8 0.8 - 5.3 10e3/uL 09/18/2024 12:22 AM CDT RH LABORATORY Absolute Monocytes 0.4 0.0 - 1.3 10e3/uL 09/18/2024 12:22 AM CDT RH LABORATORY Absolute Eosinophils 0.1 0.0 - 0.7 10e3/uL 09/18/2024 12:22 AM CDT RH LABORATORY Absolute Basophils 0.1 0.0 - 0.2 10e3/uL 09/18/2024 12:22 AM CDT LABORATORY Absolute Immature Granulocytes 0.0 <=0.4 10e3/uL 09/18/2024 12:22 AM CDT LABORATORY Absolute NRBCs 0.0 10e3/uL 09/18/2024 12:22 AM CDT LABORATORY Blood BLOOD SPECIMEN / Unknown Venipuncture / Unknown 09/18/2024 12:10 AM CDT 09/18/2024 12:18 AM CDT Tyrell Aguero MD LAB - BLOOD ORDER YAAKOV Final Result [facility] [address] [email or web address] Lab (1st floor, no room number) [place] [address] * Troponin T, High Sensitivity (09/18/2024 12:10 AM CDT) [facility] Troponin T, High Sensitivity <6 <=14 ng/L 09/18/2024 12:43 AM CDT LABORATORY Comment: Either a High Sensitivity Troponin T baseline (0 hours) value = 100 ng/L, or an increase in High Sensitivity Troponin T = 7 ng/L at 2 hours compared to 0 hours (2-0 hours), suggests myocardial injury, and urgent clinical attention is required. If the 2-0 hours increase is <7 ng/L, a High Sensitivity Troponin T result above gender-specific reference ranges warrants further evaluation. Recommendations for further evaluation include correlation with clinical decision-making tool (e.g., HEART), a 3rd High Sensitivity Troponin T test 2 hours after the 2nd (a 20% change from baseline would represent concern), admission for observation, close PCC/cardiology follow-up, or urgent outpatient provocative testing. Blood BLOOD SPECIMEN / Unknown Venipuncture / Unknown 09/18/2024 12:10 AM CDT 09/18/2024 12:18 AM CDT Tyrell Aguero MD LAB - BLOOD ORDER YAAKOV Final Result [facility] [address] Lab (1st floor, no room number) [place] [address] * (ABNORMAL) Lipase (09/18/2024 12:10 AM CDT) Pathologist [facility] Lipase 73(H) 13 - 60 U/L 09/18/2024 12:43 AM CDT LABORATORY Blood BLOOD SPECIMEN / Unknown Venipuncture / Unknown 09/18/2024 12:10 AM CDT 09/18/2024 12:18 AM CDT us Tyrell Aguero MD LAB - BLOOD ORDER YAAKOV Final Result LABORATORY [facility] [address] [facility], no room number[facility] [place] [phone] * (ABNORMAL) Comprehensive metabolic panel (09/18/2024 12:10 AM CDT) Pathologist [facility] Sodium 136 135 - 145 mmol/L 09/18/2024 12:43 AM CDT LABORATORY Potassium 4.1 3.4 - 5.3 mmol/L 09/18/2024 12:43 AM CDT LABORATORY Carbon Dioxide (CO2) 23 22 - 29 mmol/L 09/18/2024 12:43 AM CDT LABORATORY Anion Gap 10 7 - 15 mmol/L 09/18/2024 12:43 AM CDT LABORATORY Urea Nitrogen 14.7 6.0 - 20.0 mg/dL 09/18/2024 12:43 AM CDT LABORATORY Creatinine 0.92 0.51 - 0.95 mg/dL 09/18/2024 12:43 AM CDT LABORATORY GFR Estimate 79 >60 mL/min/1.7 3m2 09/18/2024 12:43 AM CDT LABORATORY Comment:eGFR calculated usin g 2020 CKD-EPI equation. Calcium 9.4 8.8 - 10.4 mg/dL 09/18/2024 12:43 AM CDT LABORATORY Chloride 103 98 - 107 mmol/L 09/18/2024 12:43 AM CDT LABORATORY Glucose 90 70 - 99 mg/dL 09/18/2024 12:43 AM CDT LABORATORY Alkaline Phosphatase 64 40 - 150 U/L 09/18/2024 12:43 AM CDT LABORATORY AST 71(H) 0 - 45 U/L 09/18/2024 12:43 AM CDT LABORATORY ALT 50 0 - 50 U/L 09/18/2024 12:43 AM CDT LABORATORY Protein Total 6.9 6.4 - 8.3 g/dL 09/18/2024 12:43 AM CDT LABORATORY Albumin 4.4 3.5 - 5.2 g/dL 09/18/2024 12:43 AM CDT LABORATORY Bilirubin Total 0.4 <=1.2 mg/dL 09/18/2024 12:43 AM CDT LABORATORY Blood BLOOD SPECIMEN / Unknown Venipuncture / Unknown 09/18/2024 12:10 AM CDT 09/18/2024 12:18 AM CDT us Tyrell Aguero MD LAB - BLOOD ORDER YAAKOV Final Result Performing Organization Address City/State/[facility] Co de Phone Number [facility] [address] Lab (1st floor, no room number) [place] [address], [facility] documented in this encounter Visit Diagnoses Diagnosis Acute cholecystitis Acute cholecystitis documented in this encounter Admitting Diagnoses Diagnosis Acute cholecystitis documented in this encounter Administered Medications Inactive Administered Medications - up to 3 most recent administrations Medication Order MAR Action Action Date Dose Rate Site acetaminophen (TYLENOL) Suppository 650 mg 650 mg, Rectal, EVERY 4 HOURS PRN, mild pain, other, and adjunct with moderate or severe pain or per patient request, Starting on 09/18/24 at 0321, Alternate with ibuprofen if ordered. Maximum acetaminophen dose from all sources = 75 mg/kg/day not to exceed 4 grams/day. acetaminophen (TYLENOL) tablet 650 mg 650 mg, Oral, EVERY 4 HOURS PRN, mild pain, other, and adjunct with moderate or severe pain or per patient request, Starting on 09/18/24 at 0321, Alternate with ibuprofen if ordered. Maximum acetaminophen dose from all sources = 75 mg/kg/day not to exceed 4 grams/day. acetaminophen (TYLENOL) tablet 650 mg 650 mg, Oral, ONCE PRN, mild pain, to moderate pain, Starting on 09/18/24 at 1525, One time prior to discharge. Maximum acetaminophen dose from all sources = 75 mg/kg/day not to exceed 4 grams/day. $Given 09/18/2024 3:54 PM CDT 650 mg ampicillin-sulbactam (UNASYN) 3 g vial to attach to NS 100 mL bag STAT, 3 g, Intravenous, ONCE, On 09/18/24 at 0130, For 1 dose, Indications: Intra-Abdominal InfectionIndications:Intra-Abdomin al Infection $New Bag 09/18/2024 1:55 AM CDT 3 g ampicillin-sulbactam (UNASYN) 3 g vial to attach to NS 100 mL bag Routine, 3 g, Intravenous, EVERY 6 HOURS, First dose on 09/18/24 at 0800, Indications: Intra-Abdominal InfectionIndications:Intra-Abdomin al Infection $New Bag 09/18/2024 8:16 AM CDT 3 g fentaNYL (PF) (SUBLIMAZE) injection 50 mcg 50 mcg, Intravenous, EVERY 5 MIN PRN, severe pain, Give fentaNYL (SUBLIMAZE) first if HYDROmorphone (DILAUDID) also ordered., Starting on 09/18/24 at 1358, Administer fentaNYL (SUBLIMAZE) for acute pain control. Move to HYDROmorphone (DILAUDID): - IF patient has received up to 200 mcg of fentaNYL (SUBLIMAZE), OR - IF patient has received 2 doses of fentaNYL (SUBLIMAZE) AND continues to have severe pain (pain score greater than or equal to seven (7) or is unable to participate in post op recovery due to pain. Wait 5 minutes AFTER last fentaNYL (SUBLIMAZE) dose before administering HYDROmorphone (DILADUDID). Postop Anesthesia Phase I only. Notify Provider to assess for uncontrolled pain or analgesic side effects. DO NOT revert back to fentanyl (SUBLIMAZE) after moving to HYDROmorphone (DILAUDID)., PACU $Given 09/18/2024 3:44 PM CDT 50 mcg $Given 09/18/2024 3:38 PM CDT 50 mcg HYDROmorphone (DILAUDID) injection 0.2 mg 0.2 mg, Intravenous, EVERY 15 MIN PRN, moderate pain, Starting on 09/18/24 at 1341, For 2 doses, Pre-procedure $Given 09/18/2024 1:44 PM CDT 0.2 mg HYDROmorphone (DILAUDID) injection 0.4 mg 0.4 mg, Intravenous, EVERY 5 MIN PRN, severe pain, Starting on 09/18/24 at 1358, Use FentaNYL (SUBLIMAZE) first if ordered. Administer HYDROmorphone (DILAUDID) up to a total of 2 mg for moderate or severe pain. Notify Provider to assess for uncontrolled pain or analgesic side effects., PACU $Given 09/18/2024 4:07 PM CDT 0.4 mg indocyanine green (IC-GREEN) injection 1.5 mg 1.5 mg, Intravenous, ONCE, On 09/18/24 at 1300, For 1 dose, Reconstitute vial with 10 mL Sterile Water for Injection (conc 2.5 mg/mL) PRIOR to administration. Administer IV as a single dose at least 45 minutes prior to robotic cholecystectomy surgery. Use prepared solution within 1 hours and discard any unused solution., Pre-procedure $Given 09/18/2024 1:10 PM CDT 1.5 mg ketorolac (TORADOL) injection 15 mg 15 mg, Intravenous, ONCE, On 09/18/24 at 0015, For 1 dose, Do not give within 6 hours of Ibuprofen. Can cause pain on injection. If ordered intravenously (IV) : administer through a running maintenance fluid over 1 minute followed by a flush. If patient complains of pain on injection, may dilute 15-30 mg in 5 mL and push over 1 to 2 minutes. $Given 09/18/2024 12:18 AM CDT 15 mg lactated ringers infusion at 10 mL/hr, Intravenous, CONTINUOUS, IF patient NOT on dialysis., Pre-procedure, Starting on 09/18/24 at 1300, Until 09/18/24 at 1525 $New Bag 09/18/2024 1:46 PM CDT 10 mL/hr morphine (PF) injection 2 mg 2 mg, Intravenous, EVERY 3 HOURS PRN, severe pain, IF patient cannot take oral opioid OR IF pain not managed with non-pharmacological, non-opioid, or oral opioid interventions if ordered, Starting on 09/18/24 at 0321, May use concomitant with non-opioid analgesics. $Given 09/18/2024 8:27 AM CDT 2 mg $Given 09/18/2024 3:41 AM CDT 2 mg morphine (PF) injection 4 mg 4 mg, Intravenous, EVERY 15 MIN PRN, moderate pain, severe pain, Starting on 09/18/24 at 0012, For 3 doses, Notify the provider to assess for uncontrolled pain or analgesic side effects. 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 $Given 09/18/2024 1:07 AM CDT 4 mg naloxone (NARCAN) injection 0.2 mg 0.2 mg, Intravenous, EVERY 2 MIN PRN, opioid reversal, Starting on 09/18/24 at 0327, Administer intravenous route when available and notify provider when administered. For unintended sedation or respiratory depression if all of the below criteria are met: ~ respiratory rate LESS than or EQUAL to 8. ~SaO2 less than 92% and or/end-tidal CO2 is greater than 50. ~ the patient is receiving an opioid, has unintended sedations assessed as RASS (-3), and is currently not on mechanical ventilation. RASS scale moderate (-3) is movement or eye opening to voice but no eye contact. Patient Monitoring Once the patient has demonstrated a response to the naloxone, continue to monitor respiratory rate, depth, oxygen saturation and end-tidal CO2 (if available) every 15 minutes x 2, then every 30 minutes x 2, then every 1 hour x 1 after each naloxone dose. Consider transfer to ICU if patient respiratory parameters have not improved after 4 naloxone doses. naloxone (NARCAN) injection 0.2 mg 0.2 mg, Intramuscular, EVERY 2 MIN PRN, opioid reversal, Starting on 09/18/24 at 0327, Administer intramuscular if an intravenous route is not available and notify provider when administered. For unintended sedation or respiratory depression if all of the below criteria are met: ~ respiratory rate LESS than or EQUAL to 8. ~SaO2 less than 92% and or/end-tidal CO2 is greater than 50. ~ the patient is receiving an opioid, has unintended sedations assessed as RASS (-3), and is currently not on mechanical ventilation. RASS scale moderate (-3) is movement or eye opening to voice but no eye contact. Patient Monitoring Once the patient has demonstrated a response to the naloxone, continue to monitor respiratory rate, depth, oxygen saturation and end-tidal CO2 (if available) every 15 minutes x 2, then every 30 minutes x 2, then every 1 hour x 1 after each naloxone dose. Consider transfer to ICU if patient respiratory parameters have not improved after 4 naloxone doses. naloxone (NARCAN) injection 0.4 mg 0.4 mg, Intravenous, EVERY 2 MIN PRN, opioid reversal, Starting on 09/18/24 at 0327, Administer intravenous route when available and notify provider when administered. For unintended sedation or respiratory depression if all of the below criteria are met: ~ respiratory rate LESS than or EQUAL to 8. ~ SaO2 less than 92% and or/end-tidal CO2 is greater than 50. ~ the patient is receiving an opioid, has unintended sedation assessed as RASS (-4) or (-5) and patient is currently not on mechanical ventilation. RASS scale (-4) is deep sedation with no response to voice but movement or eye opening to physical stimulation. RASS scale (-5) is unarousable. Patient Monitoring Once the patient has demonstrated a response to the naloxone, continue to monitor respiratory rate, depth, oxygen saturation and end-tidal CO2 (if available) every 15 minutes x 2, then every 30 minutes x 2, then every 1 hour x 1 after each naloxone dose. Consider transfer to ICU if patient respiratory parameters have not improved after 4 naloxone doses. naloxone (NARCAN) injection 0.4 mg 0.4 mg, Intramuscular, EVERY 2 MIN PRN, opioid reversal, Starting on 09/18/24 at 0327, Administer intramuscular if an intravenous route is not available and notify provider when administered. For unintended sedation or respiratory depression if all of the below criteria are met: ~ respiratory rate LESS than or EQUAL to 8. ~ SaO2 less than 92% and or/end-tidal CO2 is greater than 50. ~ the patient is receiving an opioid, has unintended sedation assessed as RASS (-4) or (-5) and patient is currently not on mechanical ventilation. RASS scale (-4) is deep sedation with no response to voice but movement or eye opening to physical stimulation. RASS scale (-5) is unarousable. Patient Monitoring Once the patient has demonstrated a response to the naloxone, continue to monitor respiratory rate, depth, oxygen saturation and end-tidal CO2 (if available) every 15 minutes x 2, then every 30 minutes x 2, then every 1 hour x 1 after each naloxone dose. Consider transfer to ICU if patient respiratory parameters have not improved after 4 naloxone doses. ondansetron (ZOFRAN ODT) ODT tab 4 mg 4 mg, Oral, EVERY 6 HOURS PRN, nausea/vomiting - 1st line, Starting on 09/18/24 at 0321, This is Step 1 of nausea and vomiting management. If nausea not resolved in 15 minutes, go to Step 2 prochlorperazine (COMPAZINE). With dry hands, peel back foil backing and gently remove tablet. Do not push oral disintegrating tablet through foil backing. Administer immediately on tongue and oral disintegrating tablet dissolves in seconds, then swallow with saliva. Liquid not required. ondansetron (ZOFRAN) injection 4 mg 4 mg, Intravenous, ONCE, Administer over 2-5 Minutes, On 09/18/24 at 0010, For 1 dose $Given 09/18/2024 12:18 AM CDT 4 mg ondansetron (ZOFRAN) injection 4 mg 4 mg, Intravenous, ONCE, Administer over 2-5 Minutes, On 09/18/24 at 0115, For 1 dose $Given 09/18/2024 1:13 AM CDT 4 mg ondansetron (ZOFRAN) injection 4 mg 4 mg, Intravenous, EVERY 6 HOURS PRN, nausea/vomiting - 1st line, Administer over 2-5 Minutes, Starting on 09/18/24 at 0321, Give IF patient unable to tolerate oral medication. This is Step 1 of nausea and vomiting management. If nausea not resolved in 15 minutes, go to Step 2 prochlorperazine (COMPAZINE). $Given 09/18/2024 8:26 AM CDT 4 mg oxyCODONE (ROXICODONE) tablet 5 mg 5 mg, Oral, ONCE PRN, other, pain control or improvement in physical function. , Starting on 09/18/24 at 1525, For 1 dose, Notify provider to assess for uncontrolled pain or analgesic side effects. $Given 09/18/2024 3:54 PM CDT 5 mg prochlorperazine (COMPAZINE) injection 10 mg 10 mg, Intravenous, EVERY 6 HOURS PRN, nausea/vomiting - 2nd line, Administer over 1-2 Minutes, Starting on 09/18/24 at 0321, IF patient unable to tolerate oral medication. This is Step 2 of nausea and vomiting management. Give if nausea not resolved 15 minutes after giving ondansetron (ZOFRAN). prochlorperazine (COMPAZINE) tablet 10 mg 10 mg, Oral, EVERY 6 HOURS PRN, nausea/vomiting - 2nd line, Starting on 09/18/24 at 0321, This is Step 2 of nausea and vomiting management. Give if nausea not resolved 15 minutes after giving ondansetron (ZOFRAN). senna-docusate (SENOKOT-S/PERICOLACE) 8.6-50 MG per tablet 1 tablet 1 tablet, Oral, 2 TIMES DAILY PRN, constipation, Starting on 09/18/24 at 0321, If no bowel movement in 24 hours, increase to 2 tablets by mouth. IF more than 1 constipation PRN medication is ordered, administer step-newberry as indicated, moving to the next step ONLY if prior step ineffective. Step 1: senna-docusate (SENOKOT-S; PERICOLACE) OR bisacodyl (DULCOLAX) EC tablet Step 2: polyethylene glycol (MIRALAX/GLYCOLAX) Step 3: bisacodyl (DULCOLAX) suppository Step 4: enema Hold for loose stools. senna-docusate (SENOKOT-S/PERICOLACE) 8.6-50 MG per tablet 2 tablet 2 tablet, Oral, 2 TIMES DAILY PRN, constipation, Starting on 09/18/24 at 0321, IF more than 1 constipation PRN medication is ordered, administer step-newberry as indicated, moving to the next step ONLY if prior step ineffective. Step 1: senna-docusate (SENOKOT-S; PERICOLACE) OR bisacodyl (DULCOLAX) EC tablet Step 2: polyethylene glycol (MIRALAX/GLYCOLAX) Step 3: bisacodyl (DULCOLAX) suppository Step 4: enema Hold for loose stools. sodium chloride (PF) 0.9% PF flush 3 mL 3 mL, Intracatheter, EVERY 8 HOURS, First dose on 09/18/24 at 0330, to lock peripheral IV dormant line $Given 09/18/2024 3:41 AM CDT 3 mLs sodium chloride 0.9 % infusion at 50 mL/hr, Intravenous, CONTINUOUS, Until able to take po , Starting on 09/18/24 at 0330, Until 09/18/24 at 1855 $New Bag 09/18/2024 3:51 AM CDT 50 mL/hr sodium chloride 0.9% BOLUS 1,000 mL Intravenous, 1,000 mL, ONCE, at 1,000 mL/hr, Administer over 1 Hours, On 09/18/24 at 0010, For 1 dose $New Bag 09/18/2024 12:17 AM CDT 1,000 mLs 1000 mL/hr documented in this encounter Active and Recently Administered Medications Times are shown in CDT. Scheduled Medication Order 09/16/2024 09/17/2024 09/18/2024 ampicillin-sulbactam (UNASYN) 3 g vial to attach to NS 100 mL bag (COMPLETED) STAT, 3 g, Intravenous, ONCE, On 09/18/24 at 0130, For 1 dose, Indications: Intra-Abdominal Infection 0155 ($New Bag - Pro vider: Roxana Ibrahim, ARBEN)0228 (Stopped - Provider: Lola Bangura, ARBEN) ampicillin-sulbactam (UNASYN) 3 g vial to attach to NS 100 mL bag Routine, 3 g, Intravenous, EVERY 6 HOURS, First dose on 09/18/24 at 0800, Indications: Intra-Abdominal Infection 0816 ($New Bag - Pro vider: Mera Christina, ARBEN)1237 (Auto Hold - Provider: Orders Generic Provider - Reason: Transfer to a procedural area)1400 (Automatically Held - Provider: Orders Generic Provider)1855 (Unhold - Provider: Orders Generic Provider) ceFAZolin Sodium (ANCEF) injection 2 g (COMPLETED) Routine, 2 g, Intravenous, PRE-OP/PRE-PROCEDURE, Starting on 09/18/24 at 1258, For 1 dose, Give first dose within 1 hour PRIOR to incision. If patient weight is greater than or equal to 120 kg increase dose to 3 g., Indications: Perioperative Pharmacoprophylaxis, Pre-procedure 1423 ($Given - Provi campbell: Jerzy Olmedo, JESUS BLANDON) indocyanine green (IC-GREEN) injection 1.5 mg (COMPLETED) 1.5 mg, Intravenous, ONCE, On 09/18/24 at 1300, For 1 dose, Reconstitute vial with 10 mL Sterile Water for Injection (conc 2.5 mg/mL) PRIOR to administration. Administer IV as a single dose at least 45 minutes prior to robotic cholecystectomy surgery. Use prepared solution within 1 hours and discard any unused solution., Pre-procedure 1310 ($Given - Provi campbell: Isadora Atwood, RN) ketorolac (TORADOL) injection 15 mg (COMPLETED) 15 mg, Intravenous, ONCE, On 09/18/24 at 0015, For 1 dose, Do not give within 6 hours of Ibuprofen. Can cause pain on injection. If ordered intravenously (IV) : administer through a running maintenance fluid over 1 minute followed by a flush. If patient complains of pain on injection, may dilute 15-30 mg in 5 mL and push over 1 to 2 minutes. 0018 ($Given - Provi campbell: Roxana Ibrahim, ARBEN) ondansetron (ZOFRAN) injection 4 mg (COMPLETED) 4 mg, Intravenous, ONCE, Administer over 2-5 Minutes, On 09/18/24 at 0010, For 1 dose 0018 ($Given - Provi campbell: Roxana Ibrahim, ARBEN) ondansetron (ZOFRAN) injection 4 mg (COMPLETED) 4 mg, Intravenous, ONCE, Administer over 2-5 Minutes, On 09/18/24 at 0115, For 1 dose 0113 ($Given - Provi campbell: Roxana Ibrahim, ARBEN) polyethylene glycol (MIRALAX) Packet 17 g 17 g, Oral, DAILY, First dose on 09/18/24 at 0800, 1 Packet = 17 grams. Mix each gram with at least 1/2 ounce (15 mL) of water - 8 ounces for 17 g dose, 4 ounces for 8.5 g dose, 2 ounces for 4 g dose. Follow with the same volume of water. Hold for loose stools unless being administered as part of a bowel prep regimen or bowel clean out. 0823 (Not Given - Pr ovider: Mera Christina RN - Reason: Contraindicated)1237 (Auto Hold - Provider: Orders Generic Provider - Reason: Transfer to a procedural area)1855 (Unhold - Provider: Orders Generic Provider) sodium chloride (PF) 0.9% PF flush 3 mL 3 mL, Intracatheter, EVERY 8 HOURS, First dose on 09/18/24 at 0330, to lock peripheral IV dormant line 0341 ($Given - Provi campbell: Rajat Ba RN)1038 (Not Given - Provider: Mera Christina RN - Reason: IV Infusing)1237 (Auto Hold - Provider: Orders Generic Provider - Reason: Transfer to a procedural area)185 (Unhold - Provider: Orders Generic Provider) sodium chloride 0.9% BOLUS 1,000 mL (COMPLETED) Intravenous, 1,000 mL, ONCE, at 1,000 mL/hr, Administer over 1 Hours, On 09/18/24 at 0010, For 1 dose 0017 ($New Bag - Pro vider: Roxana Ibrahim, ARBEN) Continuous Medication Order 09/16/2024 09/17/2024 09/18/2024 lactated ringers infusion (CANCELED) at 10 mL/hr, Intravenous, CONTINUOUS, IF patient NOT on dialysis., Pre-procedure, Starting on 09/18/24 at 1300, Until 09/18/24 at 1525 1346 ($New Bag - Pro vider: Isadora Atwood RN) sodium chloride 0.9 % infusion at 50 mL/hr, Intravenous, CONTINUOUS, Until able to take po , Starting on 09/18/24 at 0330, Until 09/18/24 at 1855 0351 ($New Bag - Pro vider: Rajat Ba RN) PRN Medication Order 09/16/2024 09/17/2024 09/18/2024 acetaminophen (TYLENOL) Suppository 650 mg(Linked Group 1) 650 mg, Rectal, EVERY 4 HOURS PRN, mild pain, other, and adjunct with moderate or severe pain or per patient request, Starting on 09/18/24 at 0321, Alternate with ibuprofen if ordered. Maximum acetaminophen dose from all sources = 75 mg/kg/day not to exceed 4 grams/day. 1237 (Auto Hold - Pr ovider: Orders Generic Provider - Reason: Transfer to a procedural area)1855 (Unhold - Provider: Orders Generic Provider) acetaminophen (TYLENOL) tablet 650 mg(Linked Group 1) 650 mg, Oral, EVERY 4 HOURS PRN, mild pain, other, and adjunct with moderate or severe pain or per patient request, Starting on 09/18/24 at 0321, Alternate with ibuprofen if ordered. Maximum acetaminophen dose from all sources = 75 mg/kg/day not to exceed 4 grams/day. 1237 (Auto Hold - Pr ovider: Orders Generic Provider - Reason: Transfer to a procedural area)1855 (Unhold - Provider: Orders Generic Provider) acetaminophen (TYLENOL) tablet 650 mg 650 mg, Oral, ONCE PRN, mild pain, to moderate pain, Starting on 09/18/24 at 1525, One time prior to discharge. Maximum acetaminophen dose from all sources = 75 mg/kg/day not to exceed 4 grams/day. 1554 ($Given - Provi campbell: Elsa Ng RN) artificial saliva (BIOTENE MT) solution 1 spray 1 spray, Mouth/Throat, 4 TIMES DAILY PRN, dry mouth, Starting on 09/18/24 at 0321 1237 (Auto Hold - Pr ovider: Orders Generic Provider - Reason: Transfer to a procedural area)185 (Unhold - Provider: Orders Generic Provider) benzocaine-menthol (CHLORASEPTIC) 6-10 MG lozenge 1 lozenge 1 lozenge, Buccal, EVERY 1 HOUR PRN, sore throat, without fever, Starting on 09/18/24 at 0321 1237 (Auto Hold - Pr ovider: Orders Generic Provider - Reason: Transfer to a procedural area)185 (Unhold - Provider: Orders Generic Provider) BUPivacaine 0.5% - EPINEPHrine 1:200,000 (PF) injection (CANCELED) PRN, Starting on 09/18/24 at 1514, Intra-procedure 1514 ($Given - Provi campbell: Damon Philip PA-C) calcium carbonate (TUMS) chewable tablet 1,000 mg 1,000 mg, Oral, 2 TIMES DAILY PRN, heartburn, Starting on 09/18/24 at 0321 1237 (Auto Hold - Pr ovider: Orders Generic Provider - Reason: Transfer to a procedural area)185 (Unhold - Provider: Orders Generic Provider) fentaNYL (PF) (SUBLIMAZE) injection 50 mcg (CANCELED) 50 mcg, Intravenous, EVERY 5 MIN PRN, severe pain, Give fentaNYL (SUBLIMAZE) first if HYDROmorphone (DILAUDID) also ordered., Starting on 09/18/24 at 1358, Administer fentaNYL (SUBLIMAZE) for acute pain control. Move to HYDROmorphone (DILAUDID): - IF patient has received up to 200 mcg of fentaNYL (SUBLIMAZE), OR - IF patient has received 2 doses of fentaNYL (SUBLIMAZE) AND continues to have severe pain (pain score greater than or equal to seven (7) or is unable to participate in post op recovery due to pain. Wait 5 minutes AFTER last fentaNYL (SUBLIMAZE) dose before administering HYDROmorphone (DILADUDID). Postop Anesthesia Phase I only. Notify Provider to assess for uncontrolled pain or analgesic side effects. DO NOT revert back to fentanyl (SUBLIMAZE) after moving to HYDROmorphone (DILAUDID)., PACU 1538 ($Given - Provi campbell: Elsa Ng RN)1544 ($Given - Provider: Elsa Ng RN) HYDROmorphone (DILAUDID) injection 0.2 mg (CANCELED) 0.2 mg, Intravenous, EVERY 15 MIN PRN, moderate pain, Starting on 09/18/24 at 1341, For 2 doses, Pre-procedure 1344 ($Given - Provi campbell: Isadora Atwood RN) HYDROmorphone (DILAUDID) injection 0.4 mg (CANCELED) 0.4 mg, Intravenous, EVERY 5 MIN PRN, severe pain, Starting on 09/18/24 at 1358, Use FentaNYL (SUBLIMAZE) first if ordered. Administer HYDROmorphone (DILAUDID) up to a total of 2 mg for moderate or severe pain. Notify Provider to assess for uncontrolled pain or analgesic side effects., PACU 1607 ($Given - Provi campbell: Elsa Ng RN) ketorolac (TORADOL) injection 30 mg 30 mg, Intravenous, EVERY 6 HOURS PRN, inflammatory pain, Starting on 09/18/24 at 0321, For 5 days, Can cause pain on injection. If ordered intravenously (IV) : administer through a running maintenance fluid over 1 minute followed by a flush. If patient complains of pain on injection, may dilute 15-30 mg in 5 mL and push over 1 to 2 minutes. 1237 (Auto Hold - Pr ovider: Orders Generic Provider - Reason: Transfer to a procedural area)185 (Unhold - Provider: Orders Generic Provider) lidocaine (LMX4) cream Topical, EVERY 1 HOUR PRN, pain, with VAD insertion, Starting on 09/18/24 at 0321, Apply at least 30 minutes prior to VAD insertion in divided doses as needed for size of site for insertion. MAX Dose: 2.5 g ( of 5 g tube) Do NOT give if patient has a history of allergy to any local anesthetic or any kenisha product. Do NOT use both lidocaine intradermal/subcutaneous injection and the lidocaine cream on the same site. 1237 (Auto Hold - Pr ovider: Orders Generic Provider - Reason: Transfer to a procedural area)185 (Unhold - Provider: Orders Generic Provider) lidocaine 1 % 0.1-1 mL 0.1-1 mL, Other, EVERY 1 HOUR PRN, mild pain with VAD insertion, Starting on 09/18/24 at 0321, MAX dose 1 mL subcutaneous OR intradermal along the side of the vein in divided doses as needed for VAD insertion. Do NOT give if patient has a history of allergy to any local anesthetic or any kenisha product. Do NOT use both lidocaine intradermal/subcutaneous injection and the lidocaine cream on the same site. 1237 (Auto Hold - Pr ovider: Orders Generic Provider - Reason: Transfer to a procedural area)185 (Unhold - Provider: Orders Generic Provider) menthol-zinc oxide (CALMOSEPTINE) 0.44-20.6 % ointment OINT Topical, 4 TIMES DAILY PRN, skin protection, Starting on 09/18/24 at 0321, Apply pea-size amount for skin irritation. 1237 (Auto Hold - Pr ovider: Orders Generic Provider - Reason: Transfer to a procedural area)185 (Unhold - Provider: Orders Generic Provider) miconazole (MICATIN) 2 % cream Topical, 2 TIMES DAILY PRN, other, fungal rash, Starting on 09/18/24 at 0321, Apply to: affected area 1237 (Auto Hold - Pr ovider: Orders Generic Provider - Reason: Transfer to a procedural area)185 (Unhold - Provider: Orders Generic Provider) miconazole (MICATIN) 2 % powder Topical, 2 TIMES DAILY PRN, other, candidiasis/intertrigo, Starting on 09/18/24 at 0321, To skin folds 1237 (Auto Hold - Pr ovider: Orders Generic Provider - Reason: Transfer to a procedural area)185 (Unhold - Provider: Orders Generic Provider) morphine (PF) injection 1 mg 1 mg, Intravenous, EVERY 3 HOURS PRN, moderate pain, IF patient cannot take oral opioid OR IF pain not managed with non-pharmacological, non-opioid, or oral opioid interventions if ordered, Starting on 09/18/24 at 0321, May use concomitant with non-opioid analgesics. 1237 (Auto Hold - Pr ovider: Orders Generic Provider - Reason: Transfer to a procedural area)185 (Unhold - Provider: Orders Generic Provider) morphine (PF) injection 2 mg 2 mg, Intravenous, EVERY 3 HOURS PRN, severe pain, IF patient cannot take oral opioid OR IF pain not managed with non-pharmacological, non-opioid, or oral opioid interventions if ordered, Starting on 09/18/24 at 0321, May use concomitant with non-opioid analgesics. 0341 ($Given - Provi campbell: Rajat Ba RN)0827 ($Given - Provider: Mera Christina RN)123 (Auto Hold - Provider: Orders Generic Provider - Reason: Transfer to a procedural area)185 (Unhold - Provider: Orders Generic Provider) morphine (PF) injection 4 mg (CANCELED) 4 mg, Intravenous, EVERY 15 MIN PRN, moderate pain, severe pain, Starting on 09/18/24 at 0012, For 3 doses, Notify the provider to assess for uncontrolled pain or analgesic side effects. 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 0107 ($Given - Provi campbell: Roxana Ibrahim RN) naloxone (NARCAN) injection 0.2 mg(Linked Group 2) 0.2 mg, Intravenous, EVERY 2 MIN PRN, opioid reversal, Starting on 09/18/24 at 0327, Administer intravenous route when available and notify provider when administered. For unintended sedation or respiratory depression if all of the below criteria are met: ~ respiratory rate LESS than or EQUAL to 8. ~SaO2 less than 92% and or/end-tidal CO2 is greater than 50. ~ the patient is receiving an opioid, has unintended sedations assessed as RASS (-3), and is currently not on mechanical ventilation. RASS scale moderate (-3) is movement or eye opening to voice but no eye contact. Patient Monitoring Once the patient has demonstrated a response to the naloxone, continue to monitor respiratory rate, depth, oxygen saturation and end-tidal CO2 (if available) every 15 minutes x 2, then every 30 minutes x 2, then every 1 hour x 1 after each naloxone dose. Consider transfer to ICU if patient respiratory parameters have not improved after 4 naloxone doses. 1237 (Auto Hold - Pr ovider: Orders Generic Provider - Reason: Transfer to a procedural area)1854 (Unhold - Provider: Orders Generic Provider) naloxone (NARCAN) injection 0.2 mg(Linked Group 2) 0.2 mg, Intramuscular, EVERY 2 MIN PRN, opioid reversal, Starting on 09/18/24 at 0327, Administer intramuscular if an intravenous route is not available and notify provider when administered. For unintended sedation or respiratory depression if all of the below criteria are met: ~ respiratory rate LESS than or EQUAL to 8. ~SaO2 less than 92% and or/end-tidal CO2 is greater than 50. ~ the patient is receiving an opioid, has unintended sedations assessed as RASS (-3), and is currently not on mechanical ventilation. RASS scale moderate (-3) is movement or eye opening to voice but no eye contact. Patient Monitoring Once the patient has demonstrated a response to the naloxone, continue to monitor respiratory rate, depth, oxygen saturation and end-tidal CO2 (if available) every 15 minutes x 2, then every 30 minutes x 2, then every 1 hour x 1 after each naloxone dose. Consider transfer to ICU if patient respiratory parameters have not improved after 4 naloxone doses. 1237 (Auto Hold - Pr ovider: Orders Generic Provider - Reason: Transfer to a procedural area)1854 (Unhold - Provider: Orders Generic Provider) naloxone (NARCAN) injection 0.4 mg(Linked Group 2) 0.4 mg, Intravenous, EVERY 2 MIN PRN, opioid reversal, Starting on 09/18/24 at 0327, Administer intravenous route when available and notify provider when administered. For unintended sedation or respiratory depression if all of the below criteria are met: ~ respiratory rate LESS than or EQUAL to 8. ~ SaO2 less than 92% and or/end-tidal CO2 is greater than 50. ~ the patient is receiving an opioid, has unintended sedation assessed as RASS (-4) or (-5) and patient is currently not on mechanical ventilation. RASS scale (-4) is deep sedation with no response to voice but movement or eye opening to physical stimulation. RASS scale (-5) is unarousable. Patient Monitoring Once the patient has demonstrated a response to the naloxone, continue to monitor respiratory rate, depth, oxygen saturation and end-tidal CO2 (if available) every 15 minutes x 2, then every 30 minutes x 2, then every 1 hour x 1 after each naloxone dose. Consider transfer to ICU if patient respiratory parameters have not improved after 4 naloxone doses. 1237 (Auto Hold - Pr ovider: Orders Generic Provider - Reason: Transfer to a procedural area)1854 (Unhold - Provider: Orders Generic Provider) naloxone (NARCAN) injection 0.4 mg(Linked Group 2) 0.4 mg, Intramuscular, EVERY 2 MIN PRN, opioid reversal, Starting on 09/18/24 at 0327, Administer intramuscular if an intravenous route is not available and notify provider when administered. For unintended sedation or respiratory depression if all of the below criteria are met: ~ respiratory rate LESS than or EQUAL to 8. ~ SaO2 less than 92% and or/end-tidal CO2 is greater than 50. ~ the patient is receiving an opioid, has unintended sedation assessed as RASS (-4) or (-5) and patient is currently not on mechanical ventilation. RASS scale (-4) is deep sedation with no response to voice but movement or eye opening to physical stimulation. RASS scale (-5) is unarousable. Patient Monitoring Once the patient has demonstrated a response to the naloxone, continue to monitor respiratory rate, depth, oxygen saturation and end-tidal CO2 (if available) every 15 minutes x 2, then every 30 minutes x 2, then every 1 hour x 1 after each naloxone dose. Consider transfer to ICU if patient respiratory parameters have not improved after 4 naloxone doses. 1237 (Auto Hold - Pr ovider: Orders Generic Provider - Reason: Transfer to a procedural area)1854 (Unhold - Provider: Orders Generic Provider) ondansetron (ZOFRAN ODT) ODT tab 4 mg(Linked Group 3) 4 mg, Oral, EVERY 6 HOURS PRN, nausea/vomiting - 1st line, Starting on 09/18/24 at 0321, This is Step 1 of nausea and vomiting management. If nausea not resolved in 15 minutes, go to Step 2 prochlorperazine (COMPAZINE). With dry hands, peel back foil backing and gently remove tablet. Do not push oral disintegrating tablet through foil backing. Administer immediately on tongue and oral disintegrating tablet dissolves in seconds, then swallow with saliva. Liquid not required. 0826 (See Alternativ e - Provider: Mera Christina RN)0827 (See Alternative - Provider: Mera Christina RN)123 (Auto Hold - Provider: Orders Generic Provider - Reason: Transfer to a procedural area)185 (Unhold - Provider: Orders Generic Provider) ondansetron (ZOFRAN) injection 4 mg(Linked Group 3) 4 mg, Intravenous, EVERY 6 HOURS PRN, nausea/vomiting - 1st line, Administer over 2-5 Minutes, Starting on 09/18/24 at 0321, Give IF patient unable to tolerate oral medication. This is Step 1 of nausea and vomiting management. If nausea not resolved in 15 minutes, go to Step 2 prochlorperazine (COMPAZINE). 0826 ($Given - Provi campbell: Mera Christina RN)0827 (Canceled Entry - Provider: Mera Christina RN)123 (Auto Hold - Provider: Orders Generic Provider - Reason: Transfer to a procedural area)1854 (Unhold - Provider: Orders Generic Provider) oxyCODONE (ROXICODONE) tablet 5 mg (COMPLETED) 5 mg, Oral, ONCE PRN, other, pain control or improvement in physical function. , Starting on 09/18/24 at 1525, For 1 dose, Notify provider to assess for uncontrolled pain or analgesic side effects. 1554 ($Given - Provi campbell: Elsa Ng RN) prochlorperazine (COMPAZINE) injection 10 mg(Linked Group 4) 10 mg, Intravenous, EVERY 6 HOURS PRN, nausea/vomiting - 2nd line, Administer over 1-2 Minutes, Starting on 09/18/24 at 0321, IF patient unable to tolerate oral medication. This is Step 2 of nausea and vomiting management. Give if nausea not resolved 15 minutes after giving ondansetron (ZOFRAN). 123 (Auto Hold - Pr ovider: Orders Generic Provider - Reason: Transfer to a procedural area)185 (Unhold - Provider: Orders Generic Provider) prochlorperazine (COMPAZINE) tablet 10 mg(Linked Group 4) 10 mg, Oral, EVERY 6 HOURS PRN, nausea/vomiting - 2nd line, Starting on 09/18/24 at 0321, This is Step 2 of nausea and vomiting management. Give if nausea not resolved 15 minutes after giving ondansetron (ZOFRAN). 1237 (Auto Hold - Pr ovider: Orders Generic Provider - Reason: Transfer to a procedural area)1854 (Unhold - Provider: Orders Generic Provider) senna-docusate (SENOKOT-S/PERICOLACE) 8.6-50 MG per tablet 1 tablet(Linked Group 5) 1 tablet, Oral, 2 TIMES DAILY PRN, constipation, Starting on 09/18/24 at 0321, If no bowel movement in 24 hours, increase to 2 tablets by mouth. IF more than 1 constipation PRN medication is ordered, administer step-newberry as indicated, moving to the next step ONLY if prior step ineffective. Step 1: senna-docusate (SENOKOT-S; PERICOLACE) OR bisacodyl (DULCOLAX) EC tablet Step 2: polyethylene glycol (MIRALAX/GLYCOLAX) Step 3: bisacodyl (DULCOLAX) suppository Step 4: enema Hold for loose stools. 123 (Auto Hold - Pr ovider: Orders Generic Provider - Reason: Transfer to a procedural area)1854 (Unhold - Provider: Orders Generic Provider) senna-docusate (SENOKOT-S/PERICOLACE) 8.6-50 MG per tablet 2 tablet(Linked Group 5) 2 tablet, Oral, 2 TIMES DAILY PRN, constipation, Starting on 09/18/24 at 0321, IF more than 1 constipation PRN medication is ordered, administer step-newberry as indicated, moving to the next step ONLY if prior step ineffective. Step 1: senna-docusate (SENOKOT-S; PERICOLACE) OR bisacodyl (DULCOLAX) EC tablet Step 2: polyethylene glycol (MIRALAX/GLYCOLAX) Step 3: bisacodyl (DULCOLAX) suppository Step 4: enema Hold for loose stools. 1237 (Auto Hold - Pr ovider: Orders Generic Provider - Reason: Transfer to a procedural area)1855 (Unhold - Provider: Orders Generic Provider) sodium chloride (PF) 0.9% PF flush 3 mL 3 mL, Intracatheter, EVERY 1 MIN PRN, line flush, other, to ensure patency or to lock dormant line, Starting on 09/18/24 at 0321 1237 (Auto Hold - Pr ovider: Orders Generic Provider - Reason: Transfer to a procedural area)1855 (Unhold - Provider: Orders Generic Provider) sterile water (bottle) irrigation (CANCELED) PRN, Intra-procedure, Starting on 09/18/24 at 1508, Until 09/18/24 at 1525 1508 ($Given - Provi campbell: Satnam Johnson MD) Linked Groups Order Group 1: acetaminophen (TYLENOL) tablet 650 mgJump to med 650 mg, Oral, EVERY 4 HOURS PRN, mild pain, other, and adjunct with moderate or severe pain or per patient request, Starting on 09/18/24 at 0321, Alternate with ibuprofen if ordered. Maximum acetaminophen dose from all sources = 75 mg/kg/day not to exceed 4 grams/day. Or acetaminophen (TYLENOL) Suppository 650 mgJump to med 650 mg, Rectal, EVERY 4 HOURS PRN, mild pain, other, and adjunct with moderate or severe pain or per patient request, Starting on 09/18/24 at 0321, Alternate with ibuprofen if ordered. Maximum acetaminophen dose from all sources = 75 mg/kg/day not to exceed 4 grams/day. Group 2: naloxone (NARCAN) injection 0.2 mgJump to med 0.2 mg, Intravenous, EVERY 2 MIN PRN, opioid reversal, Starting on 09/18/24 at 0327, Administer intravenous route when available and notify provider when administered. For unintended sedation or respiratory depression if all of the below criteria are met: ~ respiratory rate LESS than or EQUAL to 8. ~SaO2 less than 92% and or/end-tidal CO2 is greater than 50. ~ the patient is receiving an opioid, has unintended sedations assessed as RASS (-3), and is currently not on mechanical ventilation. RASS scale moderate (-3) is movement or eye opening to voice but no eye contact. Patient Monitoring Once the patient has demonstrated a response to the naloxone, continue to monitor respiratory rate, depth, oxygen saturation and end-tidal CO2 (if available) every 15 minutes x 2, then every 30 minutes x 2, then every 1 hour x 1 after each naloxone dose. Consider transfer to ICU if patient respiratory parameters have not improved after 4 naloxone doses. Or naloxone (NARCAN) injection 0.4 mgJump to med 0.4 mg, Intravenous, EVERY 2 MIN PRN, opioid reversal, Starting on 09/18/24 at 0327, Administer intravenous route when available and notify provider when administered. For unintended sedation or respiratory depression if all of the below criteria are met: ~ respiratory rate LESS than or EQUAL to 8. ~ SaO2 less than 92% and or/end-tidal CO2 is greater than 50. ~ the patient is receiving an opioid, has unintended sedation assessed as RASS (-4) or (-5) and patient is currently not on mechanical ventilation. RASS scale (-4) is deep sedation with no response to voice but movement or eye opening to physical stimulation. RASS scale (-5) is unarousable. Patient Monitoring Once the patient has demonstrated a response to the naloxone, continue to monitor respiratory rate, depth, oxygen saturation and end-tidal CO2 (if available) every 15 minutes x 2, then every 30 minutes x 2, then every 1 hour x 1 after each naloxone dose. Consider transfer to ICU if patient respiratory parameters have not improved after 4 naloxone doses. Or naloxone (NARCAN) injection 0.2 mgJump to med 0.2 mg, Intramuscular, EVERY 2 MIN PRN, opioid reversal, Starting on 09/18/24 at 0327, Administer intramuscular if an intravenous route is not available and notify provider when administered. For unintended sedation or respiratory depression if all of the below criteria are met: ~ respiratory rate LESS than or EQUAL to 8. ~SaO2 less than 92% and or/end-tidal CO2 is greater than 50. ~ the patient is receiving an opioid, has unintended sedations assessed as RASS (-3), and is currently not on mechanical ventilation. RASS scale moderate (-3) is movement or eye opening to voice but no eye contact. Patient Monitoring Once the patient has demonstrated a response to the naloxone, continue to monitor respiratory rate, depth, oxygen saturation and end-tidal CO2 (if available) every 15 minutes x 2, then every 30 minutes x 2, then every 1 hour x 1 after each naloxone dose. Consider transfer to ICU if patient respiratory parameters have not improved after 4 naloxone doses. Or naloxone (NARCAN) injection 0.4 mgJump to med 0.4 mg, Intramuscular, EVERY 2 MIN PRN, opioid reversal, Starting on 09/18/24 at 0327, Administer intramuscular if an intravenous route is not available and notify provider when administered. For unintended sedation or respiratory depression if all of the below criteria are met: ~ respiratory rate LESS than or EQUAL to 8. ~ SaO2 less than 92% and or/end-tidal CO2 is greater than 50. ~ the patient is receiving an opioid, has unintended sedation assessed as RASS (-4) or (-5) and patient is currently not on mechanical ventilation. RASS scale (-4) is deep sedation with no response to voice but movement or eye opening to physical stimulation. RASS scale (-5) is unarousable. Patient Monitoring Once the patient has demonstrated a response to the naloxone, continue to monitor respiratory rate, depth, oxygen saturation and end-tidal CO2 (if available) every 15 minutes x 2, then every 30 minutes x 2, then every 1 hour x 1 after each naloxone dose. Consider transfer to ICU if patient respiratory parameters have not improved after 4 naloxone doses. Group 3: ondansetron (ZOFRAN ODT) ODT tab 4 mgJump to med 4 mg, Oral, EVERY 6 HOURS PRN, nausea/vomiting - 1st line, Starting on 09/18/24 at 0321, This is Step 1 of nausea and vomiting management. If nausea not resolved in 15 minutes, go to Step 2 prochlorperazine (COMPAZINE). With dry hands, peel back foil backing and gently remove tablet. Do not push oral disintegrating tablet through foil backing. Administer immediately on tongue and oral disintegrating tablet dissolves in seconds, then swallow with saliva. Liquid not required. Or ondansetron (ZOFRAN) injection 4 mgJump to med 4 mg, Intravenous, EVERY 6 HOURS PRN, nausea/vomiting - 1st line, Administer over 2-5 Minutes, Starting on 09/18/24 at 0321, Give IF patient unable to tolerate oral medication. This is Step 1 of nausea and vomiting management. If nausea not resolved in 15 minutes, go to Step 2 prochlorperazine (COMPAZINE). Group 4: prochlorperazine (COMPAZINE) injection 10 mgJump to med 10 mg, Intravenous, EVERY 6 HOURS PRN, nausea/vomiting - 2nd line, Administer over 1-2 Minutes, Starting on 09/18/24 at 0321, IF patient unable to tolerate oral medication. This is Step 2 of nausea and vomiting management. Give if nausea not resolved 15 minutes after giving ondansetron (ZOFRAN). Or prochlorperazine (COMPAZINE) tablet 10 mgJump to med 10 mg, Oral, EVERY 6 HOURS PRN, nausea/vomiting - 2nd line, Starting on 09/18/24 at 0321, This is Step 2 of nausea and vomiting management. Give if nausea not resolved 15 minutes after giving ondansetron (ZOFRAN). Group 5: senna-docusate (SENOKOT-S/PERICOLACE) 8.6-50 MG per tablet 1 tabletJump to med 1 tablet, Oral, 2 TIMES DAILY PRN, constipation, Starting on 09/18/24 at 0321, If no bowel movement in 24 hours, increase to 2 tablets by mouth. IF more than 1 constipation PRN medication is ordered, administer step-newberry as indicated, moving to the next step ONLY if prior step ineffective. Step 1: senna-docusate (SENOKOT-S; PERICOLACE) OR bisacodyl (DULCOLAX) EC tablet Step 2: polyethylene glycol (MIRALAX/GLYCOLAX) Step 3: bisacodyl (DULCOLAX) suppository Step 4: enema Hold for loose stools. Or senna-docusate (SENOKOT-S/PERICOLACE) 8.6-50 MG per tablet 2 tabletJump to med 2 tablet, Oral, 2 TIMES DAILY PRN, constipation, Starting on 09/18/24 at 0321, IF more than 1 constipation PRN medication is ordered, administer step-newberry as indicated, moving to the next step ONLY if prior step ineffective. Step 1: senna-docusate (SENOKOT-S; PERICOLACE) OR bisacodyl (DULCOLAX) EC tablet Step 2: polyethylene glycol (MIRALAX/GLYCOLAX) Step 3: bisacodyl (DULCOLAX) suppository Step 4: enema Hold for loose stools. documented in this encounter Care Teams Board Winder Relationship Specialty Start Date End Date Yazmin Burnham APRN VETERINARY SCIENCE TEACHER [address] [facility] [place] [id number] PCP - General 02/02/24 Yazmin Burnham APRN VETERINARY SCIENCE TEACHER [address] [facility] [place] [id number] Assigned PCP 09/14/23 Kenisha Rodriges PA-C [id number] [id number] Assigned Surgical Provider 02/14/24 Kari Boykin [facility] [address] [place], [place] [id number] Pharmacist Pharmacist 05/05/24 Kari Boykin [facility] [address] [place], [place] [id number] Assigned MTM Pharmacist 05/16/24 documented as of this encounter
--- OUTSIDE RECORDS SUMMARY | 2024-09-18 13:40 | XMS_ITS | Encounter Summary ---
Author Organization [facility] Address [address] [place] [id number] Care Team Providers Care Architect Manager Name Role Phone Yazmin Burnham APRN CAD MANAGER Unavailable [phone] Yazmin Burnham APRN [facility] Primary Care Provider + Kenisha Rodriges PA-C Unavailable [phone] Kari Boykin [facility] Unavailable [phone] Kari Boykin [facility] Unavailable [phone] Reason for Visit * Reason Comments Abdominal Pain * Auth/Cert Specialty Diagnoses / Procedures Referred By Radha vegas Referred To Contact EMERGENCY MEDICINE Diagnoses Acute cholecystitis Randee Parikh MD [address] [place] [address] Phone: tel: fax: [facility] Emergency Dept [address] [place] [address] Phone: tel:[phone] fax: Referral ID Status Reason Start Date Expiration Date Visits Re quested Visits Authorized [id number] 1 1 Encounter Details Date Type Department Care Team (Late st Contact Info) Description 09/18/2024 1:40 PM CDT - 09/18/2024 3:30 PM CDT Surgery [facility] PeriOp Services [address] [place] [address] Satnam Johnson MD [address] [place] [address] CHOLECYSTECTOMY, ROBOT-ASSISTED, LAPAROSCOPIC, USING DA NAA XI Surgery Details Date/Time Status Location OR Service Patient Class Case Cl ass Case Type Trauma Case? 09/18/2024 1:40 PM Posted [facility] OR OR 15 General Inpatient NEST 4 - Urgent (within 12hrs) Panel 1 Procedure LRB Anes Op Region Wound Class Comments CHOLECYSTECTOMY, ROBOT-REESE MARIANO, LAPAROSCOPIC, USING DA NAA XI N/A General Abdomen III-Conta minated Surgeon Surgeon Role Service Panel Satnam Johnson MD Primary General 1 Damon Philip PA-C Assisting Angeloan shasta Authorization 1 documented in this encounter Social History Tobacco Use Types Packs/Day Years [...] How often do you attend chur or christianity services? More than 4 times per year 04/23/2021 Do you belong to any clubs o r organizations such as temple groups, unions, fraternal or athletic groups, or [...] Answer Date Recorded PHQ-2 Score 0 06/18/2024 [facility] [place] of Occupat ional Health - Occupational Stress [...] Date Recorded Do you have housing? 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 Expect gradual improvement. Jouk-kjq-cgvosko anti-inflammatory medications (i.e. Ibuprofen/Advil/Motrin or Naprosyn/Aleve) may [...] to be seen, please call us at [phone]. We are located at: [address], [address]; [place] [id number] -CONTACT US IF THE FOLLOWING DEVELOPS: 1. [...] office. We may need you to come intothe office for an incision check. Q: How [...] Walk around frequently. You may consider an zhmq-cwc-xnyditi stool-softener. Your Pharmacist can assist you with [...] to discuss with the nurse or physician business banking sales assistant. # There is a surgeon MANAGER HOSPITALITY on weekday evenings and over the weekend [...] 650mg at 4pm. Dr. [facility] [phone] * Attachments The following attachments cannot be sent through Care Everywhere. * (s) After Anesthesia (Sleep Medicine) (Lithuanian) documented in this encounter Medications at Time of Discharge acetaminophen (TYLENOL) 325 MG tabletIndications: Acute cholecystitis Take 2 tablets (650 mg) by mouth every 4 hours as needed for mild pain. 50 tablet buPROPion (WELLBUTRIN XL) 150 MG 24 hr [...] (2.5 mg) subcutaneously once a week. 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 Additionally, the biochemistry technologist reports that the patient has focal [...] ABDOMEN LIMITED - RIGHT UPPER QUADRANT LOCATION: [facility] DATE/TIME: 09/18/2024 1:02 AM CDT INDICATION: Right upper quadrant pain. COMPARISON: 11/27/2022 - CT abdomen and pelvis. TECHNIQUE: Limited abdominal ultrasound. FINDINGS: GALLBLADDER: Several small gallstones within a mildly distended gallbladder. Slight gallbladder wall thickening. No pericholecystic fluid. The biochemistry technologist reports that the patient has focal [...] distended and slightly thick-walled gallbladder. Additionally, the biochemistry technologist reports that the patient has focal [...] 5.2 g/dL Bilirubin Total 0.4 <=1.2 mg/dL Gerry Draw Status: None Narrative The following orders were created for panel order Gerry Draw. Procedure Abnormality Status --------- ------ Extra Blue Top Tube[[id number]] Final result Extra Red Top Tube[[id number]] Final result Please view results for these [...] Ventricular Rate 79 BPM Atrial Rate BPM LA Interval ms QRS Duration 80 ms QT 398 ms QTc 456 ms P Belcher degrees R AXIS 17 degrees T Belcher 62 degrees Interpretation ECG Accelerated Junctional rhythm Low voltage QRS Poor R-wave progression ; consider anterior infarct, lead placement, or normal variant Abnormal ECG No previous ECGs available CBC with Platelets & Differential Status: None Narrative The following orders were created for panel order CBC with Platelets & Differential. 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 Past Medical History: Past Medical History: [...] ABLATION ENDOMETRIOSIS 2002 WRIST SURGERY Left 2009 ZZC NONSPECIFIC PROCEDURE [...] mg 4 mg Oral Q6H PRN Randee Parikh MD Or [Auto Hold] ondansetron (ZOFRAN) injection [...] 09/18/2024 Imaging: All imaging studies reviewed by me - US with several gallstones, normal sized CBD Results for orders placed or performed during the hospital encounter of 09/18/24 US Abdomen Limited Narrative EXAM: ULTRASOUND ABDOMEN LIMITED - RIGHT UPPER QUADRANT LOCATION: [facility] DATE/TIME: 09/18/2024 1:02 AM CDT INDICATION: Right upper quadrant pain. COMPARISON: 11/27/2022 - CT abdomen and pelvis. TECHNIQUE: Limited abdominal ultrasound. FINDINGS: GALLBLADDER: Several small gallstones within a mildly distended gallbladder. Slight gallbladder wall thickening. No pericholecystic fluid. The biochemistry technologist reports that the patient has focal [...] distended and slightly thick-walled gallbladder. Additionally, the biochemistry technologist reports that the patient has focal tenderness over the gallbladder. These findings are at least mildly to moderately suspicious for acute cholecystitis. Recommend clinical correlation. If desired, a HIDA scan could be considered for confirmation of acute cholecystitis. 2. No biliary dilatation. Satnam Johnson MD documented in this encounter ED Notes * Rajat Ba RN - 09/18/2024 1:47 AM CDT [facility] ED Nurse Handoff Report ED Chief complaint: Abdominal Pain . ED Diagnosis: Final diagnoses: Acute cholecystitis Allergies: Allergies Allergen Reactions Seasonal Allergies Code Status: Full Code Activity level - Baseline/Home: independent. Activity Level - Current: standby. Lift room needed: No. Bariatric: No Cantilever Crane Operator Needed: No Isolation: No. Infection: Not Applicable. [...] distended and slightly thick-walled gallbladder. 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 Additionally, the biochemistry technologist reports that the patient has focal [...] placement, or normal variant Rate 79 bpm. LA interval * ms. QRS duration 80 ms. [...] of 09/18/24 0203 Sat Sep 18, 2024 001 I obtained history and examined the patient [...] Acute cholecystitis K81.0 Scribe Disclosure: I, Alessandro Guerrero, am serving as a scribe at 12:16 [...] Johnson MD - 09/18/2024 3:17 PM CDT [facility] Brief Operative Note Pre-operative diagnosis: Acute cholecystitis [...] Johnson MD - 09/18/2024 2:44 PM CDT [facility] General Surgery Operative Note Pre-operative diagnosis: acute cholecystitis Post-operative diagnosis: same Procedure: Robotic assisted laparoscopic cholecystectomy Surgeon: Satnam Johnson MD Chief Administrative Officer(s): Damon Philip PA-C The Physician Chief Administrative Officer was medically necessary for their expertise in [...] MD * Plan of Care - Mera Christina RN - 09/18/2024 12:39 PM CDT Goal Outcome Evaluation: Pt voided and CHG wipes and taken down to surgery for lap kaylee in wheelchair. Morphine 2mg x1 this am as well as zofran with relief of symptoms. Pain RUQ to right shoulder. at bedside. * Pharmacy-Admission Medication History - Leianiki Chadwick - 09/18/2024 9:51 AM CDT Wire Weaving Loom Setter Admission Medication History Admission medication history is complete. The information provided in this note is only as accurateas the sources available at the time of the update. Information Source(s): Patient and CareEverywhere/SureScripts via in-person Pertinent Information: Pt is on the 3rd week of the cycle. She wasn't sure which day Changes made to CIRCUIT COURT JUDGE medication list: Added: None Deleted: Compounded Semaglutide and clonidine Changed: Glycopyrrolate TID PRN-->QID PRN Allergies reviewed with patient and updates made in EHR: yes Medication History Completed By: Chadwick Davies 09/18/2024 9:[address] Med List Medication Sig Note Last Dose/Taking [...] (2.5 mg) subcutaneously once a week. Cell #:[phone] 09/18/2024: Mondays09/13/2024 Cosigned by Glo Rebolledo RPH at 09/18/2024 11:01 AM CDT Associated attestation - Glo Rebolledo RPH - 09/18/2024 11:01 AM CDT Although I was not present for the interview, nor did I personally see the patient, to my knowledgethe internal communications manager has compiled the CIRCUIT [employer] JUDGE medication list to the best of their [...] for discharge by consultants (if involved): No Staffing Director Nurse Safe discharge environment identified: Yes Barriers [...] st Contact Info) Description 01/25/2025 11:00 AM MANAGER BUSINESS DEVELOPMENT HOSPICE Office Visit [facility] [place] [address] [place] [address] [address] [place] Rodriguez [phone] Kenisha Rodriges PA-C [address] [place] RODRIGUEZ [id number] Pending Results Name Type Priority Associated Diagnoses [...] Tube (09/18/2024 6:59 AM CDT) Hold Specimen [facility] 09/18/2024 9:46 AM CDT [facility] LAB[facility] Blood STRUCTURE OF LEFT UPPER LIMB / Unknown Venipuncture / Unknown 09/18/2024 6:59 AM CDT 09/18/2024 8:37 AM CDT us Randee Parikh MD LAB - BLOOD ORDERABLES Final Res ult [facility] LABORATORY [facility] [address] Lab (1st floor, no room number) [place] [address], [facility] * (ABNORMAL) Comprehensive metabolic panel (09/18/2024 6:59 AM CDT) [facility] Sodium 140 135 - 145 mmol/L 09/18/2024 [...] - 8.3 g/dL 09/18/2024 7:26 AM CDT [facility] Albumin 4.0 3.5 - 5.2 g/dL 09/18/2024 7:26 AM CDT LABORATORY Bilirubin Total 1.2 <=1.2 mg/dL 09/18/2024 7:26 AM CDT [facility] Blood STRUCTURE OF LEFT UPPER LIMB / Unknown Venipuncture / Unknown 09/18/2024 6:59 AM CDT 09/18/2024 7:09 AM CDT us Randee Parikh MD LAB - BLOOD ORDERABLES Final Res ult [facility] [address] Lab (1st floor, no room number) [place] [address] * US Abdomen Limited (09/18/2024 1:02 AM CDT) Anatomical Region Laterality Modality Abdomen/Pelvis Ultrasound 09/18/2024 1:02 AM CDT Impressions 09/18/2024 1:34 AM CDT IMPRESSION: 1. Several small gallstones are present within a mildly distended and slightly thick-walled gallbladder. Additionally, the biochemistry technologist reports that the patient has focal tenderness over the gallbladder. These findings are at least mildly to moderately suspicious for acute cholecystitis. Recommend clinical correlation. If desired, a HIDA scan could be considered for confirmation of acute cholecystitis. 2. No biliary dilatation. Narrative 09/18/2024 1:34 AM CDT EXAM: ULTRASOUND ABDOMEN LIMITED - RIGHT UPPER QUADRANT LOCATION: [facility] DATE/TIME: 09/18/2024 1:02 AM CDT INDICATION: Right upper quadrant pain. COMPARISON: 11/27/2022 - CT abdomen and pelvis. TECHNIQUE: Limited abdominal ultrasound. FINDINGS: GALLBLADDER: Several small gallstones within a mildly distended gallbladder. Slight gallbladder wall thickening. No pericholecystic fluid. The biochemistry technologist reports that the patient has focal [...] ABDOMEN LIMITED - RIGHT UPPER QUADRANT LOCATION: [facility] DATE/TIME: 09/18/2024 1:02 AM CDT INDICATION: Right upper quadrant pain. COMPARISON: 11/27/2022 - CT abdomen and pelvis. TECHNIQUE: Limited abdominal ultrasound. FINDINGS: GALLBLADDER: Several small gallstones within a mildly distendedgallbladder. Slight gallbladder wall thickening. No pericholecystic fluid.The biochemistry technologist reports that the patient has focal [...] No biliary dilatation. us Tyrell Aguero MD [facility] US ORDERABLES Final Result * EKG 12-lead, tracing only (09/18/2024 12:18 AM CDT) Systolic Blood Pressure mmHg RADIOLOGY RESULTS Diastolic Blood Pressure mmHg RADIOLOGY RESULTS Ventricular Rate 79 BPM RAD IOLOGY RESULTS Atrial Rate BPM RADIOLOG Y RESULTS LA Interval ms RADIOLOG Y RESULTS QRS Duration 80 ms RADIOLO GY RESULTS QT 398 ms RADIOLOGY RESULTS QTc 456 ms RADIOLOGY RESULTS P Belcher degrees RADIOLOGY RESULTS R AXIS 17 degrees RADIOLOGY RESULTS T Belcher 62 degrees RADIOLOGY RESULTS Interpretation ECG Accelerated Junctional rhythm Low voltage QRS Poor R-wave progression ; consider anterior infarct, lead placement, or normal variant Abnormal ECG No previous ECGs available Unconfirmed report - interpretation of this ECG is computer generated - see medical record for final interpretation Confirmed by - EMERGENCY ROOM, PHYSICIAN ([id number]), editor index Kentrell Damon ([id number]) on 09/20/2024 7:46:26 AM RADIOLOGY RESULTS 09/18/2024 12:1 8 AM CDT 09/20/2024 7:46 AM CDT Tyrell Aguero MD ECG ORDERABLES E dited Result - Final RADIOLOGY RESULTS * Extra Red Top Tube (09/18/2024 12:10 AM CDT) Hold Specimen [facility] 09/18/2024 1:31 AM CDT [facility] Blood BLOOD SPECIMEN / Unknown Venipuncture / Unknown 09/18/2024 12:10 AM CDT 09/18/2024 12:18 AM CDT Tyrell Aguero MD LAB - BLOOD ORDER YAAKOV Final Result Performing Organization Address City/[facility]/ZIP Co de Phone Number [facility] [address] Lab (1st floor, no room number) [place] [address] * Extra Blue Top Tube (09/18/2024 12:10 AM CDT) Hold Specimen [facility] 09/18/2024 1:31 AM CDT [facility] Blood BLOOD SPECIMEN / Unknown Venipuncture / Unknown 09/18/2024 12:10 AM CDT 09/18/2024 12:18 AM CDT Tyrell Aguero MD LAB - BLOOD ORDER YAAKOV Final Result Performing Organization Address City/[facility]/ZIP Co de Phone Number [facility] [address] Lab (1st floor, no room number) [place] [address], [facility] * CBC with platelets and differential (09/18/2024 [...] - 0.2 10e3/uL 09/18/2024 12:22 AM CDT [facility] Absolute Immature Granulocytes 0.0 <=0.4 10e3/uL 09/18/2024 12:22 AM CDT [facility] Absolute NRBCs 0.0 10e3/uL 09/18/2024 12:22 AM CDT LABORATORY Blood BLOOD SPECIMEN / Unknown Venipuncture / Unknown 09/18/2024 12:10 AM CDT 09/18/2024 12:18 AM CDT us Tyrell Aguero MD LAB - BLOOD ORDER YAAKOV Final Result LABORATORY [facility] [address] Lab (1st floor, no room number) [place] [address] * Troponin T, High Sensitivity (09/18/2024 12:10 AM CDT) [facility] Troponin T, High Sensitivity <6 <=14 ng/L [...] - BLOOD ORDER YAAKOV Final Result LABORATORY [facility] [address] Lab (1st floor, no room number) [place] [address] * (ABNORMAL) Lipase (09/18/2024 12:10 AM CDT) Lipase 73(H) 13 - 60 U/L 09/18/2024 12:43 AM CDT LABORATORY Blood BLOOD SPECIMEN / Unknown Venipuncture / Unknown 09/18/2024 12:10 AM CDT 09/18/2024 12:18 AM CDT Tyrell Aguero MD LAB - BLOOD ORDER YAAKOV Final Result Performing Organization Address City/[facility]/ZIP Co de Phone Number LABORATORY [facility] [address] Lab (1st floor, no room number) [place] [phone] * (ABNORMAL) Comprehensive metabolic panel (09/18/2024 12:10 AM CDT) Sodium 136 135 - 145 mmol/L 09/18/2024 [...] LAB - BLOOD ORDER YAAKOV Final Result [facility] [address] Lab (1st floor, no room number) [place] [address] documented in this encounter Visit Diagnoses Diagnosis Acute cholecystitis Acute cholecystitis Acute cholecystitis documented in this [...] dose on 09/18/24 at 0800, Indications: Intra-Abdominal InfectionIndications:Intr a-Abdominal Infection $New Bag 09/18/2024 8:16 AM CDT 3 g BUPivacaine 0.5% - EPINEPHrine 1:200,000 (PF) injection PRN, Starting on 09/18/24 at 1514, Intra-procedure $Given 09/18/2024 3:14 PM CDT 30 mLs Operative Site/Surgical Site morphine (PF) injection 2 mg 2 mg, Intravenous, EVERY 3 HOURS PRN, severe pain, IF patient cannot take oral opioid OR IF pain not managed with non-pharmacological, non-opioid, or oral opioid interventions if ordered, Starting on 09/18/24 at 0321, May use concomitant with non-opioid analgesics. $Given 09/18/2024 8:27 AM CDT 2 mg $Given 09/18/2024 3:41 AM CDT 2 mg naloxone (NARCAN) injection 0.2 mg 0.2 [...] $Given 09/18/2024 8:26 AM CDT 4 mg prochlorperazine (COMPAZINE) injection 10 mg 10 [...] Bag 09/18/2024 3:51 AM CDT 50 mL/hr sterile water (bottle) irrigation PRN, Intra-procedure, Starting on 09/18/24 at 1508, Until 09/18/24 at 1525 $Given 09/18/2024 3:08 PM CDT 400 mLs Operative Site/Surgical Site documented in this encounter Active and Recently Administered Medications Times are shown in CDT. Scheduled Medication Order 09/16/2024 09/17/2024 09/18/2024 ampicillin-sulbactam (UNASYN) 3 g vial to attach to NS 100 mL bag (COMPLETED) STAT, 3 g, Intravenous, ONCE, On 09/18/24 at 0130, For 1 dose, Indications: Intra-Abdominal Infection 0155 ($New Bag - Pro vider: Roxana Ibrahim RN)0228 (Stopped - Provider: Lola Bangura RN) ampicillin-sulbactam (UNASYN) 3 g vial to attach to NS 100 mL bag Routine, 3 g, Intravenous, EVERY 6 HOURS, First dose on 09/18/24 at 0800, Indications: Intra-Abdominal Infection 0816 ($New Bag - Pro vider: Mera Christina RN)1237 (Auto Hold - Provider: Orders Generic Provider [...] Pre-procedure 1423 ($Given - Provi campbell: Jerzy Olmedo APRN CONTENT PUBLISHER) indocyanine green (IC-GREEN) injection 1.5 mg (COMPLETED) [...] Pre-procedure 1310 ($Given - Provi campbell: Isadora Atwood RN) ketorolac (TORADOL) injection 15 mg (COMPLETED) [...] minutes. 0018 ($Given - Provi campbell: Roxana Ibrahim RN) ondansetron (ZOFRAN) injection 4 mg (COMPLETED) 4 mg, Intravenous, ONCE, Administer over 2-5 Minutes, On 09/18/24 at 0010, For 1 dose 0018 ($Given - Provi campbell: Roxana Ibrahim RN) ondansetron (ZOFRAN) injection 4 mg (COMPLETED) 4 mg, Intravenous, ONCE, Administer over 2-5 Minutes, On 09/18/24 at 0115, For 1 dose 0113 ($Given - Provi campbell: Roxana Ibrahim RN) polyethylene glycol (MIRALAX) Packet 17 g 17 [...] 1346 ($New Bag - Pro vider: Isadora Atwood, ARBEN) sodium chloride 0.9 % infusion at 50 [...] area)185 (Unhold - Provider: Orders Generic Provider) acetaminophen [...] area)1854 (Unhold - Provider: Orders Generic Provider) lidocaine [...] the lidocaine cream on the same site. 123 (Auto Hold - Pr ovider: Orders Generic Provider - Reason: Transfer to a procedural area)1854 (Unhold - Provider: Orders Generic Provider) lidocaine [...] the lidocaine cream on the same site. 123 (Auto Hold - Pr ovider: Orders Generic Provider - Reason: Transfer to a procedural area)1854 (Unhold - Provider: Orders Generic Provider) menthol-zinc oxide (CALMOSEPTINE) 0.44-20.6 % ointment OINT Topical, 4 TIMES DAILY PRN, skin protection, Starting on 09/18/24 at 0321, Apply pea-size amount for skin irritation. 1237 (Auto Hold - Pr ovider: Orders Generic Provider - Reason: Transfer to a procedural area)1854 (Unhold - Provider: Orders Generic Provider) miconazole (MICATIN) 2 % cream Topical, 2 TIMES DAILY PRN, other, fungal rash, Starting on 09/18/24 at 0321, Apply to: affected area 1237 (Auto Hold - Pr ovider: Orders Generic Provider - Reason: Transfer to a procedural area)1854 (Unhold - Provider: Orders Generic Provider) miconazole (MICATIN) 2 % powder Topical, 2 TIMES DAILY PRN, other, candidiasis/intertrigo, Starting on 09/18/24 at 0321, To skin folds 123 (Auto Hold - Pr ovider: Orders [...] 0321, May use concomitant with non-opioid analgesics. 123 (Auto Hold - Pr ovider: Orders [...] analgesic side effects. Hold while on IV TRAVELING PASSENGER AGENT or with regular IV opioid dosing. 0107 [...] area)185 (Unhold - Provider: Orders Generic Provider) naloxone [...] area)185 (Unhold - Provider: Orders Generic Provider) naloxone [...] area)185 (Unhold - Provider: Orders Generic Provider) naloxone [...] area)1855 (Unhold - Provider: Orders Generic Provider) ondansetron [...] RN)0827 (See Alternative - Provider: Mera Christina RN)1237 (Auto Hold - Provider: Orders Generic Provider - Reason: Transfer to a procedural area)1855 (Unhold - Provider: Orders Generic Provider) ondansetron [...] RN)0827 (Canceled Entry - Provider: Mera Christina RN)1237 (Auto Hold - Provider: Orders Generic Provider - Reason: Transfer to a procedural area)1855 (Unhold - Provider: Orders Generic Provider) oxyCODONE [...] area)185 (Unhold - Provider: Orders Generic Provider) sterile [...] stools. documented in this encounter Care Teams Architect Manager Relationship Specialty Start Date End Date Yazmin Burnham APRN CAD MANAGER [id number] [facility] [place] [address] PCP - General 02/02/24 Yazmin Burnham APRN CAD MANAGER [address] [place] [address] [place] [address] Assigned PCP 09/14/23 Kenisha Rodriges PA-C [address] [address] Assigned Surgical Provider 02/14/24 Kari Boykin [facility] [address] [place] [address] Pharmacist Pharmacist 05/05/24 Kari Boykin [facility] [address] [place] [id number] Assigned MTM Pharmacist 05/16/24 documented as of this encounter
--- OUTSIDE RECORDS SUMMARY | 2024-09-18 14:20 | XMS_ITS | Encounter Summary ---
Author Organization [facility] Address [address] [place] [address] Care Team Providers Care Professional Development Instructor Name Role Phone Yazmin Burnham APRN PARTY PLAN SALES UNIT SALES LEADER Unavailable [phone] Yazmin Burnham APRN [facility] Primary Care Provider + Kenisha Rodriges PA-C Unavailable [phone] Kari Boykin [facility] Unavailable [phone] Kari Boykin [facility] Unavailable [phone] Reason for Visit * Auth/Cert Specialty Diagnoses / Procedures Referred By Radha vegas Referred To Contact EMERGENCY MEDICINE Diagnoses Acute cholecystitis Randee Parikh MD [address] [place] [address] Phone: tel: fax: [facility] Emergency Dept [address] [place] [address] Phone: tel:[phone] fax: Referral ID Status Reason Start Date Expiration Date Visits Re quested Visits Authorized [id number] 1 1 Encounter Details Date Type Department Care Team (Late st Contact Info) Description 09/18/2024 2:20 PM CDT Anesthesia Event [facility] [address] [place] [id number] Noel Burton MD [address] [place] [address] Anesthesia Record Procedure Summary Procedure Name Responsible Anesthesiologist Anesthesia Start Time Anesthesia Stop Time CHOLECYSTECTOMY, ROBOT-ASSISTED, LAPAROSCOPIC, USING DA NAA XI (Abdomen) Noel Burton MD 09/18/24 1420 09/18/24 1528 Events Date Time Event Comment 09/18/2024 1331 BOX BLANK MACHINE OPERATOR HELPER Ready for Procedure 1420 An Start Anesthesia Star t is defined as when the anesthesia provider assumed care, began anesthesia prep, remained continuously present with the patient, and excludes all time for performing the pre-anesthesia evaluation. The Pre-Anesthesia Evaluation was completed before Anesthesia Start. 1423 An Start Data 1423 AN REASSESS I attest that I have identified and re-evaluated the patient immediately before the induction of anesthesia and I am satisfied that the anesthetic plan is suitable for the patient's condition and procedure. The first vital signs recorded are pre-induction. Jerzy Olmedo APRN BOX BLANK MACHINE OPERATOR HELPER 1425 MD Present 1426 An Induction 1430 An Intubation 1431 MD Present 1433 Anesthesia Ready for Procedu re 1444 AN INCISION 1520 AN Extubation All extubation criteria met prior to removal. 1523 an stop data 1528 An Stop Electronically signed by Britton Smiley APRN BOX BLANK MACHINE OPERATOR HELPER on September 18, 2024 3:28 PM Meds Name Total midazolam 1 mg/mL 2 mg fentaNYL 50 mcg/mL 100 mcg lidocaine 2% 50 mg propofol 10 mg/mL 200 mg propofol drip mcg/kg/min 91.92 mg rocuronium 10 mg/mL 50 mg phenylephrine (ASHLEY-SYNEPHRINE) injection 200 mcg dexamethasone (DECADRON) 4 mg/mL 8 mg ondansetron 2 mg/mL 4 mg glycopyrrolate 0.2 mg/mL 0.2 mg sugammadex (BRIDION) 200mg/2mL 200 mg ceFAZolin Sodium (ANCEF) injection 2 g 2 g metoprolol 1 mg/mL 2.5 mg ketorolac 30 mg/mL 30 mg LR 900 mL * Agents Name O2 N2O Air Exp Sevoflurane Exp Isoflurane Exp Desflurane Ins Sevoflurane Ins Isoflurane Ins Desflurane * Blood No blood administrations on file. Lines, Drains, and Airways Type Details Placement Removal Incision/Surgical Site 07/01/17; 1232; Abdomen; iliana with an Island dressing covering 07/01/17 1232 by Kamla Ugalde RN Incision/Surgical Site Incision; 5; 1452; Lower; Abdomen; 4 port incisions 09/18/24 1452 by Beltran Bui RN Peripheral IV 09/18/24; 0005; 18 G ; B Lee; Anterior, Right; Upper forearm; EMS 09/18/24 0005 by Roxana Ibrahim RN 09/18/24 1640 by Elsa Ng RN ETT Placement Date: 09/18/24; Placement Time: 1430 (created via procedure documentation); Mask Ventilation: 0; Induction Type: RSI; Ease of Intubation: Easy; Technique: Direct laryngoscopy; Tube Size: 7 mm; DL Blade Size: Ugalde 2; Grade View: 1; Adjucts: Stylet; Placement Person: BOX BLANK MACHINE OPERATOR HELPER; Attempts: 1 09/18/24 1430 by Jerzy Olmedo APRN BOX BLANK MACHINE OPERATOR HELPER 09/18/24 1520 by Britton Smiley APRN CRNA documented in this encounter Social History Tobacco [...] week 04/23/2021 How often do you attend [facility] or baptism services? More than 4 times per year 04/23/2021 Do you belong to any clubs o r organizations such as scientologist groups, unions, fraternal or athletic groups, or [...] Answer Date Recorded PHQ-2 Score 0 06/18/2024 [facility] - Occupational Stress Questionnaire Answer Date [...] in an abandoned building, in an overnight alf, or couch-surfing.) Yes 09/18/2024 Are you worried [...] Sex Assigned at Female 04/07/2021 11:56 AM LEAD JAVA J2EE DEVELOPER Legal Sex Female 3:20 AM LEAD JAVA J2EE DEVELOPER Gender Identity Female 04/07/2021 11:56 AM LEAD JAVA J2EE DEVELOPER Sexual Orientation Straight 04/07/2021 11 :56 AM LEAD JAVA J2EE DEVELOPER 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 status CV/Hemodynamics: Uneventful Sign Out: Acceptable CV status; No obvious hypovolemia; No obvious fluid overload Other NRE: NONE DID A NON-ROUTINE EVENT OCCUR? No Last vitals: Vitals Value Taken Time BP 113/79 09/18/24 16:15 Temp 98.2 ??F (36.8 ??C) 09/18/24 15:29 Pulse 92 09/18/24 16:29 Resp 19 09/18/24 16:29 SpO2 98 % 09/18/24 16:29 Electronically Signed By: Noel Bruton MD September 18, 2024 5:06 PM * Anesthesia Procedure Notes - Jerzy Olmedo APRN BOX BLANK MACHINE OPERATOR HELPER - 09/18/2024 2:34 PM CDTAssociated Order(s): Airway Airway Patient location during procedure: OR Procedure Start/Stop Times: 09/18/2024 2:30 PM Staff - Performed By: BOX BLANK MACHINE OPERATOR HELPER Consent for Airway Urgency: elective Indications and Patient Condition Indications for airway management: nereida-procedural and airway protection Induction type:RSI Mask difficulty assessment: 0 - not attempted Final Airway Details Final airway type: endotracheal airway Successful airway: ETT - single and Oral Endotracheal Airway Details ETT size (mm): 7.0 Cuffed: yes Successful intubation technique: direct laryngoscopy DL Blade Type: Ugalde 2 Grade View of Cords: 1 Adjucts: stylet Position: Right Measured from: lips Secured at (cm): 22 Bite block used: None Post intubation assessment Placement verified by: capnometry and equal breath sounds Number of attempts at approach: 1 Number of other approaches attempted: 0 Secured with: tape Ease of procedure: easy Dentition: Intact Medication(s) Administered Medication Administration Time: 09/18/2024 2:30 PM * Anesthesia Preprocedure Evaluation - Noel Burton MD - 09/18/2024 1:51 PM CDT Anesthesia Pre-Procedure Evaluation Patient: Yen Milan : 1980 Procedure : Procedure(s): CHOLECYSTECTOMY, ROBOT-ASSISTED, LAPAROSCOPIC, USING DA NAA XI Past Medical History: Diagnosis Date Arthritis Depressive disorder DUB (dysfunctional uterine bleeding) 10/11/2008 Endometriosis, site unspecified Endometriosis Hypertension only with Lumbar radiculopathy 01/03/2013 Menorrhagia 01/24/2009 depression counseling and medication R UVJ obstructing stone 10/17/2016 S/P section 08/11/2015 Thyroid activity decreased Past Surgical History: Procedure Laterality Date APPENDECTOMY [...] ZZC NONSPECIFIC PROCEDURE cauterize endometriosis via laparoscopy 2004 Allergies Allergen Reactions Seasonal Allergies Social History Tobacco Use Smoking status: Never Smokeless tobacco: Never Substance Use Topics Alcohol use: Yes Comment: Rare Wt Readings from Last 1 Encounters: 09/18/24 74.8 kg (165 lb) Anesthesia Evaluation Pt has had prior anesthetic. History of anesthetic complications - PONV. ROS/MED HX ENT/Pulmonary: Neurologic: Cardiovascular: (+) hypertension ( induced)- - - - - METS/Exercise Tolerance: Hematologic: Musculoskeletal: GI/Hepatic: Renal/Genitourinary: (-) renal disease Endo: Comment: Hx obesity on Tirzepeptide. Last dose 5 days ago (+) thyroid problem, Psychiatric/Substance Use: (+) psychiatric history depression Infectious Disease: Malignancy: Other: Physical Exam Airway Mallampati: II TM distance: >3 FB Neck ROM: full Mouth opening: >= 4 cm Cardiovascular Dental (+) Minor Abnormalities - some fillings, tiny chips Pulmonary Neurological Other Findings OUTSIDE LABS: CBC: Lab Results Component Value Date WBC 8.1 09/18/2024 WBC 5.3 07/28/2023 HGB 14.2 09/18/2024 HGB 13.7 07/28/2023 HCT 41.0 09/18/2024 HCT 41.0 07/28/2023 PLT 287 09/18/2024 PLT 260 07/28/2023 BMP: Lab Results Component Value Date NA 140 09/18/2024 NA 136 09/18/2024 POTASSIUM 4.1 09/18/2024 POTASSIUM 4.1 09/18/2024 CHLORIDE 108 (H) 09/18/2024 CHLORIDE 103 09/18/2024 CO2 26 09/18/2024 CO2 23 09/18/2024 BUN 13.8 09/18/2024 BUN 14.7 09/18/2024 CR 0.94 09/18/2024 CR 0.92 09/18/2024 GLC 92 09/18/2024 GLC 90 09/18/2024 COAGS: No results found for: PTT, INR, FIBR POC: Lab Results Component Value Date BGM 96 01/19/2019 HCG Negative 07/28/2023 HCGS Negative 10/17/2016 HEPATIC: Lab Results Component Value Date ALBUMIN 4.0 09/18/2024 PROTTOTAL 6.1 (L) 09/18/2024 ALT 324 (H) 09/18/2024 AST 397 (H) 09/18/2024 ALKPHOS 72 09/18/2024 BILITOTAL 1.2 09/18/2024 OTHER: Lab Results Component Value Date A1C 5.3 06/11/2023 CAROL 8.6 (L) 09/18/2024 LIPASE 73 (H) 09/18/2024 TSH 2.27 05/27/2022 Anesthesia Plan ASA Status: 2 NPO Status: ELEVATED Aspiration Risk/Unknown Anesthesia Type: General. Airway: oral. Induction: intravenous, rapid sequence. Maintenance: Balanced. Techniques and Equipment: - Monitoring Plan: standard ASA monitoring Consents Anesthesia Plan(s) and associated risks, benefits, and realistic alternatives discussed. Questions answered and patient/solar manufacturer's representative(s) expressed understanding. - Discussed: - Discussed with: Patient, family Postoperative Care Pain management: plan for postoperative opioid use. Comments: Noel Burton MD I have reviewed the pertinent notes and labs in the chart from the past 30 days and (re)examined the patient. Any updates or changes from those notes are reflected in this note. Clinically Significant Risk Factors Present on Admission # Hyperchloremia: Highest Cl = 108 mmol/L in last 2 days, will monitor as appropriate # Hypocalcemia: Lowest Ca = 8.6 mg/dL in last 2 days, will monitor and replace as appropriate # Overweight: Estimated body mass index is 26.63 kg/m?? as calculated from the following: Height as of this encounter: 1.676 m (5' 6). Weight as of this encounter: 74.8 kg (165 lb). documented in this encounter Miscellaneous Notes * Anesthesia Care Transfer Note - Britton Smiley APRN BOX BLANK MACHINE OPERATOR HELPER - 09/18/2024 3:28 PM CDT Patient: Yen Milan Procedure: Procedure(s): CHOLECYSTECTOMY, ROBOT-ASSISTED, LAPAROSCOPIC, USING DA NAA XI Diagnosis: Acute cholecystitis [K81.0] Diagnosis Additional Information: No value filed. Anesthesia Type: General Note: Oropharynx: oropharynx clear of all foreign objects Level of Consciousness: awake Oxygen Supplementation: face mask Level of Supplemental Oxygen (L/min / FiO2): 8 Independent Airway: airway patency satisfactory and stable Dentition: dentition unchanged Vital Signs Stable: post-procedure vital signs reviewed and stable Report to RN Given: handoff report given Patient transferred to: PACU Handoff Report: Identifed the Patient, Identified the Reponsible Provider, Reviewed the pertinent medical history, Discussed the surgical course, Reviewed Intra-OP anesthesia mangement and issues during anesthesia, Set expectations for post-procedure period and Allowed opportunity for questions andacknowledgement of understanding Vitals: Vitals Value Taken Time BP 149/92 09/18/24 15:25 Temp 37 Pulse 99 09/18/24 15:25 Resp 13 09/18/24 15:27 SpO2 100 % 09/18/24 15:27 Vitals shown include unfiled device data. Electronically Signed By: Britton Smiley APRN CRNA September 18, 2024 3:28 PM documented in this encounter Plan of Treatment Upcoming Encounters Date Type Department Care Team (Late st Contact Info) Description 01/25/2025 11:00 AM LEAD JAVA J2EE DEVELOPER Office Visit [facility] [address] [place] [phone] Kenisha Rodriges PA-C [address] [facility] [place] [address] documented as of this encounter Procedures Procedure Name Priority Date/Time Associated Diagnosis Comments ANE AIRWAY ETT PERFORMABLE Routine 09/18/2024 2:30 PM CDT documented in this encounter Results * ANE AIRWAY ETT PERFORMABLE (09/18/2024 2:30 PM CDT) Narrative Jerzy Olmedo APRN CRNA - 09/18/2024 2:30 PM CDT Jerzy Olmedo APRN CRNA 09/18/2024 2:34 PM Airway Patient location during procedure: OR Procedure Start/Stop Times: 09/18/2024 2:30 PM Staff - Performed By: BOX BLANK MACHINE OPERATOR HELPER Consent for Airway Urgency: elective Indications and Patient Condition Indications for airway management: nereida-procedural and airway protection Induction type:RSI Mask difficulty assessment: 0 - not attempted Final Airway Details Final airway type: endotracheal airway Successful airway: ETT - single and Oral Endotracheal Airway Details ETT size (mm): 7.0 Cuffed: yes Successful intubation technique: direct laryngoscopy DL Blade Type: Ugalde 2 Grade View of Cords: 1 Adjucts: stylet Position: Right Measured from: lips Secured at (cm): 22 Bite block used: None Post intubation assessment Placement verified by: capnometry and equal breath sounds Number of attempts at approach: 1 Number of other approaches attempted: 0 Secured with: tape Ease of procedure: easy Dentition: Intact Medication(s) Administered Medication Administration Time: 09/18/2024 2:30 PM Noel Burton MD [place] ANESTHESIA Final Result documented in this encounter Visit Diagnoses Not on filedocumented in this encounter Administered Medications Inactive Administered Medications - up to 3 most recent administrations Medication Order MAR Action Action Date Dose Rate Site ceFAZolin Sodium (ANCEF) injection 2 g Routine, 2 g, Intravenous, PRE-OP/PRE-PROCEDURE, Starting on 09/18/24 at 1258, For 1 dose, Give first dose within 1 hour PRIOR to incision. If patient weight is greater than or equal to 120 kg increase dose to 3 g., Indications: Perioperative Pharmacoprophylaxis, Pre-procedureIndications:Nereida operative Pharmacoprophylaxis $Given 09/18/2024 2:23 PM CDT 2 g dexAMETHasone (DECADRON) injection Intravenous, PRN, Administer over 1 Minutes, Starting on 09/18/24 at 1426, Anesthesia Intra-op $Given 09/18/2024 2:26 PM CDT 8 mg fentaNYL (PF) (SUBLIMAZE) injection Intravenous, PRN, Administer over 3-5 Minutes, Starting on 09/18/24 at 1426, Anesthesia Intra-op $Given 09/18/2024 2:26 PM CDT 100 mcg glycopyrrolate (ROBINUL) injection Intravenous, PRN, Administer over 1-2 Minutes, Starting on 09/18/24 at 1426, Anesthesia Intra-op $Given 09/18/2024 2:26 PM CDT 0.2 mg ketorolac (TORADOL) injection Intravenous, PRN, Administer over 2 Minutes, Starting on 09/18/24 at 1518, Anesthesia Intra-op $Given 09/18/2024 3:18 PM CDT 30 mg lactated ringers infusion Intravenous, CONTINUOUS PRN, Anesthesia Intra-op, Starting on 09/18/24 at 1331, Until 09/18/24 at 1528 $New Bag 09/18/2024 1:31 PM CDT lidocaine 2% injection (MDV) Intravenous, PRN, Starting on 09/18/24 at 1426, Anesthesia Intra-op $Given 09/18/2024 2:26 PM CDT 50 mg metoprolol (LOPRESSOR) injection Intravenous, PRN, Administer over 5-10 Minutes, Starting on 09/18/24 at 1453, Anesthesia Intra-op $Given 09/18/2024 2:53 PM CDT 2.5 mg midazolam (VERSED) injection Intravenous, Administer over 2 Minutes, PRN, Starting on 09/18/24 at 1422, Anesthesia Intra-op $Given 09/18/2024 2:22 PM CDT 2 mg ondansetron (ZOFRAN) injection Intravenous, PRN, Administer over 2-5 Minutes, Starting on 09/18/24 at 1426, Anesthesia Intra-op $Given 09/18/2024 2:26 PM CDT 4 mg phenylephrine (ASHLEY-SYNEPHRINE) injection Intravenous, CONTINUOUS PRN, Starting on 09/18/24 at 1442, Anesthesia Intra-op $New Bag 09/18/2024 2:42 PM CDT 200 mcg propofol (DIPRIVAN) infusion Intravenous, CONTINUOUS PRN, Starting on 09/18/24 at 1440, Anesthesia Intra-op $New Bag 09/18/2024 2:40 PM CDT 50 mcg/kg/min 17.79 mL/hr propofol (DIPRIVAN) injection 10 mg/mL vial Intravenous, PRN, Starting on 09/18/24 at 1426, Anesthesia Intra-op $Given 09/18/2024 2:26 PM CDT 200 mg rocuronium injection Intravenous, PRN, Starting on 09/18/24 at 1426, Anesthesia Intra-op $Given 09/18/2024 2:26 PM CDT 50 mg sugammadex (BRIDION) injection Intravenous, PRN, Starting on 09/18/24 at 1518, Anesthesia Intra-op $Given 09/18/2024 3:18 PM CDT 200 mg documented in this encounter Care Teams Professional Development Instructor Relationship Specialty Start Date End Date Yazmin Burnham APRN PARTY PLAN SALES UNIT SALES LEADER [address] [facility] [place] [address] PCP - General 02/02/24 Yazmin Burnham APRN PARTY PLAN SALES UNIT SALES LEADER [address] [facility] [place] [address] Assigned PCP 09/14/23 Kenisha Rodrgies PA-C [address] [place] [address] Assigned Surgical Provider 02/14/24 Kari Boykin [facility] [address] [place], [place] [address] Pharmacist Pharmacist 05/05/24 Kari Boykin [facility] [address] [place], [place] [address] Assigned MTM Pharmacist 05/16/24 documented as of this encounter
--- OUTSIDE RECORDS SUMMARY | 2024-09-21 01:53 | XMS_ITS | Encounter Summary ---
Author Organization [facility] Address [address] [place] [address] Care Team Providers Care Screen Cleaner Name Role Phone Leyda Ramires MD Primary Care Provider [phone] Martinez Taylor MD Primary Care Provider [phone] [facility]- Primary Care Provider Ekaterina Craig PA-C Unavailable Satnam Pizarro MD Unavailable [phone] Yazmin Burnham APRN [facility] Unavailable [phone] Yazmin Burnham APRN [facility] Primary Care Provider + Kenisha Rodriges-C Unavailable [phone] Kari Boykin [facility] Unavailable [phone] Kari Boykin [facility] Unavailable [phone] Reason for Referral * - Closed Specialty Diagnoses / Procedures Referred By Contac t Referred To Contact Diagnoses related condition, antepartum Martinez Taylor MD [address] [address] Phone: tel: fax: Referral ID Status Reason Start Date Expiration Date Visits Re quested Visits Authorized [id number] Closed 01/03/2017 01/03/2018 1 1 Comments AMA plans M21, Hx of gestational HTN,Baby ASA Encounter Details Date Type Department Care Team (Late Contact Info) Description 01/03/2017 Orders Only [facility] [place] [address] [facility] [address] [place] [phone] Martinez Taylor MD [address] [place] [id number] related condition, antepartum (Primary Dx) Social History Tobacco Use Types Packs/Day Years Used Date Smoking Tobacco: Former Cigarettes Q uit: 05/13/2004 Smokeless Tobacco: Never Alcohol Use Standard Drinks/Week Comments No 0 (1 standard drink = 0.6 oz pur e alcohol) Comments No Sex and Gender Information Value Date Recorded Sex Assigned at Female 04/07/2021 11:56 AM NURSE TRANSITIONAL Legal Sex Female 3:20 AM NURSE TRANSITIONAL Gender Identity Female 04/07/2021 11:56 AM NURSE TRANSITIONAL Sexual Orientation Straight 04/07/2021 11 :56 AM NURSE TRANSITIONAL 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 Not on file Not on file documented as of this encounter Plan of Treatment Upcoming Encounters Date Type Department Care Team (Late Contact Info) Description 01/25/2025 11:00 AM NURSE TRANSITIONAL Office Visit [facility] [place] [address] [facility] [address] [place] [phone] Kenisha Rodriges PA-C [address] [facility] [place], [place] [address] Scheduled Referrals Name Type Priority Associated Diagnoses Orde r Schedule [facility] Genetic Counseling Referral Routine Related Condition, Antepartum 1 Occurrences starting 01/03/2017 until 01/03/2018 documented as of this encounter Results * [facility] US Comprehensive Single (02/18/2017 9:32 AM NURSE TRANSITIONAL) Anatomical Region Laterality Modality Ultrasound 02/18/2017 8:46 AM NURSE TRANSITIONAL Impressions 02/18/2017 10:24 AM NURSE TRANSITIONAL IMPRESSION ----- 1) Intrauterine at 18 4/7 weeks gestational age. 2) None of the anomalies commonly detected by ultrasound were evident in the detailed anatomic survey described above. 3) Growth parameters and estimated weight were consistent with an appropriate for gestation age pattern of growth. 4) The amniotic fluid volume appeared normal. Narrative 02/18/2017 10:24 AM NURSE TRANSITIONAL Comprehensive ----- Pat. Name: DAPHNE EPPS Study Date: 02/18/2017 8:46am Pat. NO: [id number] Referring MD: MARTINEZ TAYLOR Site: [facility] Coordinator: Irene Cardoza RDMS : 1980 Age: 36 ----- INDICATION ----- Advanced Maternal Age--Multigravida, normal [id number]. History of gestational hypertension. METHOD ----- Transabdominal ultrasound examination. ----- Betancur . Number of fetuses: 1. DATING ----- Date Details Gest. age BLANQUITA External assessment 11/26/2016 GA: 6 w + 4 d 18 w + 4 d 07/18/2017 U/S 02/18/2017 based upon AC, BPD, Femur, HC 18 w + 2 d 07/20/2017 Assigned dating Dating performed on 02/18/2017, based on the external assessment (on 11/26/2016) 18 w + 4 d 07/18/2017 GENERAL EVALUATION ----- Cardiac activity: present. FHR 157 bpm. movements: visualized. Presentation: tranverse with head to maternal left. Placenta: posterior, no previa. Umbilical cord: 3 vessel cord. Amniotic fluid: Amount of AF: normal amount. MVP 3.1 cm. FENG 10.9 cm. Q1 3.1 cm, Q2 2.8 cm, Q3 2.5 cm, Q4 2.5 cm. BIOMETRY ----- Main Biometry: BPD 41.0 mm 18w 3d Hadlock OFD 56.0 mm 18w 4d Nicolaides HC 154.2 mm 18w 3d Hadlock AC 123.4 mm 18w 0d Hadlock Femur 27.4 mm 18w 3d Hadlock Cerebellum tr 18.6 mm 18w 2d Nicolaides CM 4.9 mm Nuchal fold 5.34 mm Humerus 27.7 mm 18w 6d Tyra Weight Calculation: EFW 228 g EFW (lb,oz) 0 lb 8 oz Calculated by Nereida ([id number]) Head / Face / Neck Biometry: Girls Swimming Coach 7.1 mm Nasal bone 5.7 mm Amniotic Fluid / FHR: AF MVP 3.1 cm FENG 10.9 cm FHR 157 bpm ANATOMY ----- The following structures appear normal: Head / Neck Cranium. Head size. Head shape. Lateral ventricles. Choroid plexus. Midline falx. Cavum septi pellucidi. Cerebellum. Cisterna magna. Thalami. Neck. Nuchal fold. Face Lips. Profile. Nose. Orbits. Heart / Thorax 4-chamber view. RVOT. LVOT. Aortic arch. Bicaval view. Ductal arch. 0-zkscec-xckvutd view. Cardiac position. Cardiac size. Cardiac rhythm. Diaphragm. Abdomen Abdominal wall. Cord insertion. Stomach. Kidneys. Bladder. Liver. Bowel. Spine / Skelet. Cervical spine. Thoracic spine. Lumbar spine. Sacral spine. Extremities Arms. Legs. Gender: male. MATERNAL STRUCTURES ----- Cervix Visualized, Appears Closed. Cervical length 37.1 mm. Right Ovary Visualized. Left Ovary Visualized. RECOMMENDATION ----- We discussed the findings on today's ultrasound with the patient. Alternatives available for detecting anomalies, aneuploidy and predicting developmental outcome for this were thoroughly discussed. The risks, benefits and limitations of maternal serum screening, cell-free DNA screening, ultrasound and genetic amniocentesis were thoroughly reviewed with the patient. We discussed the availability of amniocentesis for the precise diagnosis of chromosomal abnormalities including the associated procedure-related risk of loss of 1/300 ? 1500. The patient declined all further aneuploidy screening and diagnostic tests. Further ultrasound studies as clinically indicated. Return to primary provider for continued care. Thank you for the opportunity to participate in the care of this patient. If you have questions regarding today's evaluation or if we can be of further service, please contact the [facility]. anomalies may be present but not detected. Procedure Note Hoang Morales MD - 02/18/2017 Comprehensive ----- Pat. Name:Chasity EPPS Date:02/18/2017 8:46am Pat. NO: [id number] MD:MARTINEZ TAYLOR Site:Sussygrapher:Irene Cardoza RDMS :1980Age:36 ----- INDICATION ----- Advanced Maternal Age--Multigravida, normal [id number]. History ofgestational hypertension. METHOD ----- Transabdominal ultrasound examination. ----- Betancur . Number of fetuses: 1. DATING ----- DateDetailsGest. age BLANQUITA External assessment 11/26/2016 GA: 6 w + 4d18 w + 4 d 07/18/2017 U/S 02/18/2017based upon AC, BPD, Femur, HC18 w + 2 d 07/20/2017 Assigned dating Dating performed on 02/18/2017, based onthe external assessment (on 11/26/2016) 18 w + 4 07/18/2017 GENERAL EVALUATION ----- Cardiac activity: present. FHR 157 bpm. movements: visualized. Presentation: tranverse with head to maternal left. Placenta: posterior, no previa. Umbilical cord: 3 vessel cord. Amniotic fluid: Amount of AF: normal amount. MVP 3.1 cm. FENG 10.9 cm. Q13.1 cm, Q2 2.8 cm, Q3 2.5 cm, Q4 2.5 cm. BIOMETRY ----- Main Biometry: BPD 41.0 mm18w 3d Hadlock OFD 56.0 mm18w 4d Nicolaides HC 154.2 mm18w 3d Hadlock AC 123.4 mm18w 0d Hadlock Femur 27.4 mm18w 3d Hadlock Cerebellum tr 18.6 mm18w 2d Nicolaides CM 4.9 mm Nuchal fold 5.34 mm Humerus 27.7 mm18w 6d Tyra Weight Calculation: EFW 228 g EFW (lb,oz) 0 lb 8 oz Calculated by Nereida ([id number]) Head / Face / Neck Biometry: Girls Swimming Coach 7.1 mm Nasal bone 5.7 mm Amniotic Fluid / FHR: AF MVP 3.1 cm FENG 10.9 cm FHR 157 bpm ANATOMY ----- The following structures appear normal: Head / Neck Cranium. Head size. Head shape.Lateral ventricles. Choroid plexus. Midline falx. Cavum septi pellucidi.Cerebellum. Cisterna magna. Thalami. Neck. Nuchal fold. Face Lips. Profile. Nose. Orbits. Heart / Thorax 4-chamber view. RVOT. LVOT. Aorticarch. Bicaval view. Ductal arch. 1-rklfnw-psezmtr view. Cardiac position.Cardiac size. Cardiac rhythm. Diaphragm. Abdomen Abdominal wall. Cord insertion.Stomach. Kidneys. Bladder. Liver. Bowel. Spine / Skelet. Cervical spine. Thoracic spine. Lumbarspine. Sacral spine. Extremities Arms. Legs. Gender: male. MATERNAL STRUCTURES ----- Cervix Visualized, Appears Closed. Cervical length 37.1 mm. Right Ovary Visualized. Left Ovary Visualized. RECOMMENDATION ----- We discussed the findings on today's ultrasound with the patient. Alternatives available for detecting anomalies, aneuploidy andpredicting developmental outcome for this were thoroughlydiscussed. The risks, benefits and limitations of maternal serum screening, cell-free DNA screening,ultrasound and genetic amniocentesis were thoroughly reviewed with thepatient. We discussed the availability of amniocentesis for the precise diagnosis of chromosomalabnormalities including the associated procedure-related risk of pregnancyloss of 1300 ? . The patient declined all further aneuploidy screening and diagnostic tests. Further ultrasound studies as clinically indicated. Return to primary provider for continued care. Thank you for the opportunity to participate in the care of this patient.If you have questions regarding today's evaluation or if we can be offurther service, please contact the [facility]aternal[facility] Medicine Center. anomalies may be present but not detected. IMPRESSION ----- 1) Intrauterine at 18 4/7 weeks gestational age. 2) None of the anomalies commonly detected by ultrasound were evident inthe detailed anatomic survey described above. 3) Growth parameters and estimated weight were consistent with anappropriate for gestation age pattern of growth. 4) The amniotic fluid volume appeared normal. us Martinez Taylor MD [facility] US ORDERABLES Edited R esult - Final documented in this encounter Visit Diagnoses Diagnosis related condition, antepartum- Primary related condition, antepartum documented in this encounter Care Teams Screen Cleaner Relationship Specialty Start Date End Date Leyda Ramires MD [address] [place] [address] PCP - General timing adjuster 08/12/13 06/25/17 Martinez Taylor MD [address] [facility] [address] [place] [address] PCP - General timing adjuster 06/26/17 01/18/19 [facility]- [address] [place] [address] PCP - General 01/19/19 02/01/24 Yazmin Burnham APRN [facility] [address] [facility] [place] [address] PCP - General 02/02/[address]aterina [address] PA-C [facility] [address] [place] [address] Assigned PCP 03/29/21 03/15/22 Satnam Pizarro MD [address] [place], [place] [address] Assigned PCP 03/16/22 09/13/23 Yazmin Burnham APRN [facility] [address] [place] [address] [place] [address] Assigned PCP 09/14/23 Kenisha Rodriges PA-C [address] [place] [address] Assigned Surgical Provider 02/14/24 Kari Boykin Bernardo [address] [place] [address] Pharmacist Pharmacist 05/05/24 Kari Boykin [facility] [address] [place] [address] Assigned MTM Pharmacist 05/16/24 documented as of this encounter
--- OUTSIDE RECORDS SUMMARY | 2024-09-21 01:54 | XMS_ITS | Encounter Summary ---
Author Organization [facility] Address [address] [place] [address] Care Team Providers Care Color Printer Operator Name Role Phone ChristinaJeramy valenciaalicia LEE PROOF PLATE MAKER Unavailable [phone] Yazmin Burnham APRN [facility] Primary Care Provider + Kenisha Rodriges PA-C Unavailable [phone] Kari Boykin [facility] Unavailable [phone] Kari Boykin [facility] Unavailable [phone] Encounter Details Date Type Department Care Team (Latest Contact Info) Description 09/18/2024 Travel Social History Tobacco Use Types Packs/Day Years [...] often do you attend chur ch or jain services? More than 4 times per year 04/23/2021 Do you belong to any clubs o r organizations such as mormon groups, unions, fraternal or athletic groups, or [...] Answer Date Recorded PHQ-2 Score 0 06/18/2024 [facility] - Occupational [...] Answer Date Recorded Do you have housing? 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 Not on file documented as of this encounter Plan of Treatment Upcoming Encounters Date Type Department Care Team (Late st Contact Info) Description 01/25/2025 11:00 AM DEVIL DOG Office Visit [facility] Weight [facility] [place] [id number] [facility] [address] [place] [phone] Kenisha Rodriges PA-C [address] [place] [address] documented as of this encounter Visit Diagnoses Not on filedocumented in this encounter Care Teams Color Printer Operator Relationship Specialty Start Date End Date Yazmin Burnham APRN [employer] [address] [place] [address] [place] [address] PCP - General 02/02/24 Yazmin Burnham APRN [employer] [address] [place] [address] [place] [address] Assigned PCP 09/14/23 Kenisha Rodriges PA-C [address] [place] [address] Assigned Surgical Provider 02/14/24 Kari Boykin [facility] [address] [place], [place] [address] Pharmacist Pharmacist 05/05/24 Kari Boykin [facility] [address] [place], [place] [id number] Assigned [place] Pharmacist 05/16/24 documented as of this encounter
--- OUTSIDE RECORDS SUMMARY | 2024-09-21 01:54 | XMS_ITS | Encounter Summary ---
Author Organization [facility] Address [address] [place] [address]. [place] [address] Care Team Providers Care Car Shagger Name Role Phone Tej Yazmin LEE ABRASIVE GRINDER Unavailable [phone] Yazmin Burnham APRN [facility] Primary Care Provider + Kenisha Rodriges PA-C Unavailable [phone] Kari Boykin [facility] Unavailable [phone] Kari Boykin [facility] Unavailable [phone] Encounter Details Date Type Department Care Team (Late st Contact Info) Description 08/10/2024 Results Follow-Up [facility] [place] [id number] [facility] [address] [place] [address] Kenisha Rodriges PA-C [address] [facility] [place] [id number] Dx: Overweight with body mass index (BMI) of 26 to 26.9 in adult (Primary Dx) Social History Tobacco Use Types [...] How often do you attend chur or christian services? 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 [place] [address] [facility] [address] [place] [phone] Kenisha Rodriges PA-C [address] [place] [address] Scheduled Orders Name Type Priority Associated Diagnoses Orde r Schedule Basic metabolic panel Lab Routine Overweight with body mass index (BMI) of 26 to 26.9 in adult History of obesity Expected: 08/10/2024 (Approximate), Expires: 08/10/2025 documented as of this encounter Visit Diagnoses Diagnosis Overweight with body mass index (BMI) of 26 to 26.9 in adult- Primary History of obesity Personal history of other specified diseases documented in this encounter Care Teams Car Shagger Relationship Specialty Start Date End Date Yazmin Burnham APRN [employer] GRINDER [address] [place] [address] [place] [address] PCP - General 02/02/24 Yazmin Burnham APRN A[employer] GRINDER [address] [facility] [place] [address] Assigned PCP 09/14/23 Kenisha Rodriges PA-C [address] [place] [address] Assigned Surgical Provider 02/14/24 Kari Boykin [facility] [address] [place] [id number] Pharmacist Pharmacist 05/05/24 Kari Boykin [facility] [address] [place] [id number] Assigned MTM Pharmacist 05/16/24 documented as of this encounter
--- OUTSIDE RECORDS SUMMARY | 2024-09-21 01:54 | XMS_ITS | Clinical Summary ---
Author Organization [facility] Address [address] [place] [address] Care Team Providers Care Face Man Name Role Phone Yazmin Burnham APRN [facility] Unavailable [phone] Yazmin Burnham APRN [facility] Primary Care Provider + Kenisha Rodriges PA-C Unavailable [phone] Kari Boykin [facility] Unavailable [phone] Kari Boykin [facility] Unavailable [phone] Allergies Active Allergy Reactions Criticality Noted Date Comments Seasonal Allergies 02/03/2024 Medications citalopram (CELEXA) 40 MG tablet Take 40 mg by mouth at bedtime. Active LARISSIA 0.1-20 MG-MCG tablet TAKE 1 TABLET BY MOUTH ONCE DAILY. TAKE ONLY ACTIVE TABLETS CONTINUOUSLY AND SKIP PLACEBO TABLETS 11/11/19 21 Active glycopyrrolate (ROBINUL) 1 MG tablet Take 1 mg by mouth 4 times daily as needed. Active linaclotide (LINZESS) 290 MCG capsule Take 290 mcg by mouth every morning (before breakfast) Active busPIRone (BUSPAR) 10 MG tablet Take 10 mg by mouth 2 times daily. 01/20/20 24 Active SUMAtriptan (IMITREX) 50 MG tabletIndication s:Migraine without aura and without status migrainosus, not intractable Take 1-2 tablets (50-100 mg) by mouth at onset of headache for migraine. May repeat in 2 hrs. Max 200 mg in 24 hrs 9 tablet 05/05/19 25 Active buPROPion (WELLBUTRIN XL) 150 MG 24 hr tablet Take 150 mg by mouth every morning. Take with the 300 mg to make 450 mg Active ondansetron (ZOFRAN ODT) 4 MG ODT tabIndications:N ausea Take 1 tablet (4 mg) by mouth every 8 hours as needed for nausea. 20 tablet 05/05/19 25 Active tirzepatide-weig ht management (ZEPBOUND) 2.5 MG/0.5ML vialIndications: Class 1 obesity due to excess calories without serious comorbidity with body mass index (BMI) of 32.0 to 32.9 in adult Inject 0.5 mLs (2.5 mg) subcutaneously once a week. Cell #:[phone] 2 mL 3 06/19/19 25 Active buPROPion (WELLBUTRIN XL) 300 MG 24 hr tablet Take 300 mg by mouth every morning. Take with the 150 mg to make 450 mg Active ibuprofen (ADVIL/MOTRIN) 600 MG tabletIndication s:Acute cholecystitis Take 1 tablet (600 mg) by mouth every 6 hours as needed for other (mild and/or inflammatory pain). 30 tablet 09/19/19 25 Active acetaminophen (TYLENOL) 325 MG tabletIndication s:Acute cholecystitis Take 2 tablets (650 mg) by mouth every 4 hours as needed for mild pain. 50 tablet 09/19/19 25 Active oxyCODONE (ROXICODONE) 5 MG tabletIndication s:Acute cholecystitis Take 1-2 tablets (5-10 mg) by mouth every 4 hours as needed for moderate to severe pain. 6 tablet 09/19/19 25 Active senna-docusate (SENOKOT-S/PERIC OLACE) 8.6-50 MG tabletIndication s:Acute cholecystitis Take 1-2 tablets by mouth 2 times daily. 30 tablet 09/19/19 25 Active buPROPion (WELLBUTRIN XL) 300 MG 24 hr tablet TAKE 1 TABLET BY MOUTH EVERY DAY IN THE MORNING 11/24/19 21 025 Discontin ued(Med Rec(No AVS / No eCancel)) cloNIDine (CATAPRES) 0.1 MG tablet as needed. 11/20/19 21 025 Discontin ued(Med Rec(No AVS / No eCancel)) COMPOUNDED NON-CONTROLLED SUBSTANCE (CMPD RX) - PHARMACY TO MIX COMPOUNDED MEDICATIONIndica tions:Class 1 obesity due to excess calories without serious comorbidity with body mass index (BMI) of 32.0 to 32.9 in adult,High cholesterol Inject Semaglutide 0.5 mg subcutaneously once weekly 1 mL 2 06/06/19 25 025 Discontin ued(Med Rec(No AVS / No eCancel)) Active Problems Problem Noted Date Diagnosed Date Acute cholecystitis 09/18/2024 History of obesity 08/10/2024 Overweight with body mass in dex (BMI) of 26 to 26.9 in adult 02/03/2024 High cholesterol 02/03/2024 Lipoma of skin and subcutaneous tissue - left up per back 03/07/2022 Endometriosis 09/22/2009 Resolved Problems Problem Noted Date Diagnosed Date Resolved Date S/P 07/01/2017 04/23/2021 Pre-eclampsia 06/27/2017 04/23/2021 Indication for care in labor or delivery 06/09/2017 04/23/2021 Renal colic 10/18/2016 03/07/2022 Hypokalemia 10/17/2016 03/07/2022 R UVJ obstructing stone 10/17/201602/21 Hydronephrosis due to obstruction of ureter 10/17/2016 03/07/2022 S/P section 08/11/2015 022 Indication for care in labor and delivery, antepartum 07/24/2015 04/23/2021 Lumbar radiculopathy 01/03/2013 022 Uterine contractions at grea ter than 20 weeks of gestation 11/05/2012 04/23/2021 Abdominal pain 10/22/2012 03/07/2022 Overview (11/25/2012): Imo Update utility Labor and delivery indicatio n for care or intervention 07/10/2012 04/23/2021 CARDIOVASCULAR SCREENING; LD L GOAL LESS THAN 160 01/21/2010 04/23/2021 Menorrhagia 01/24/2009 03/07/2022 Thyroid activity decreased 12/19/2008 1 05/08/2021 DUB (dysfunctional uterine bleeding) 10/11/2008 03/07/2022 Encounters Date Type Department Care Team Description 09/18/2024 2:20 PM CDT Anesthesia Event [facility] [address] [place] [address] Noel Burton MD 09/18/2024 1:40 PM CDT - 09/18/2024 3:30 PM CDT Surgery [facility] [address] [place] [address] Satnam Johnson MD CHOLECYSTECTOMY, ROBOT-ASSISTED, LAPAROSCOPIC, USING DA NAA XI 09/18/2024 12:01 AM CDT - 09/18/2024 4:54 PM CDT Hospital Encounter [facility] PreOP/PostOP [address] [place] [address] Tyrell Aguero MD Dorn, Karen T, MD Acute cholecystitis Discharge Disposition: Home or Self Care 09/18/2024 Travel 08/10/2024 12:40 PM CDT Lab [facility] [address] [place] [address] Overweight with body mass index (BMI) of 26 to 26.9 in adult 08/10/2024 11:00 AM CDT Office Visit [facility] [address] [place] [phone] Kenisha Rodriges PA-C Overweight with body mass index (BMI) of 26 to 26.9 in adult (Primary Dx); History of obesity; High cholesterol 08/10/2024 Results Follow-Up [facility] [place] [address] [facility] [address] [place] [phone] Kenisha Rdoriges PA-C Dx: Overweight with body mass index (BMI) of 26 to 26.9 in adult (Primary Dx) 08/10/2024 Travel 07/29/2024 MyC Medical Advice [facility] [place] [address] [facility] [place] [facility] [address] [place] [phone] Cristal Duncan CMA 07/19/2024 10:00 AM CDT Allied Health/Nurse Visit [facility] [place] [address] [facility] [address] [place] [phone] Giovanny Villanueva, RD, LD Overweight (BMI 25.0-29.9) (Primary Dx) 07/19/2024 Travel from Last 3 Months Immunizations Immunization Administration Dates Next Due Influenza (IIV3) PF 11/25/2017,12/22/2012 Influenza (prior to 2023) 01/03/2017 Influenza Vaccine >6 months,quad, PF 12/29/2020 Influenza Vaccine, 6+MO IM (QUADRIVALENT W/PRESERVATIVES) 01/10/2022,01/03/2017,12/15/2015,2014 Influenza,INJ,MDCK,PF,Quad >6mo(Flucelvax) 12/14/2019,12/15/2018 MMR (MMRII) 10/06/2018,09/01/2018 TDAP (Adacel,Boostrix) 06/23/2015,08/27/2012 TDAP Vaccine (Boostrix) 05/14/2017 Family History Medical History Relation Comments Cancer - colorectal Maternal Grandfather Colon Cancer Maternal Grandfather Diabetes Maternal Grandfather Anxiety Disorder Mother Hypertension Mother Thyroid Disease Mother C.A.D. Paternal Grandmother Coronary Artery Disease Paternal Grandmother Thyroid Disease Sister Relation Status Comments Maternal Grandfather Alive Mother Alive Paternal Grandmother Alive Sister Alive Social History Tobacco Use Types Packs/Day Years Used Date Smoking Tobacco: Never Smokeless Tobacco: Never Tobacco Cessation:Counseling Given: Not Answered Alcohol Use Standard Drinks/Week Comments Yes 0 [...] How often do you attend chur or mormon services? 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 Not on file Not on file Last Filed Vital Signs Vital Sign Reading [...] Mass Index 26.63 09/18/2024 12:10 AM CDT Plan of Treatment Upcoming Encounters Date Type Department Care Team (Late st Contact Info) Description 01/25/2025 11:00 AM WELD ENGINEER Office Visit [facility] [address] [place] [phone] Kenisha Rodriges PA-C [address] [place] [address] Health Maintenance Due Date Last Done Comments CT COLONOGRAPHY 1981 FIT 1981 sDNA (Cologuard) 1981 FLEX SIG 01/04/2014 01/04/2009 ANNUAL REVIEW OF HM ORDERS 03/07/2023 03/07/2022 YEARLY PREVENTIVE VISIT 05/28/2023 05/28/19, 05/25/2021, 05/24/2020, Additional history exists COVID-19 VACCINE ( season) 2023 02/22/2021, 05/29/2020 LIPID 06/10/2024 06/11/2023, 11/27/2007 INFLUENZA VACCINE (#1) 2024 , 11/29/2022, 01/10/2022, Additional history exists MAMMO SCREENING 05/30/2025 05/31/2023 COLONOSCOPY 02/24/2027 02/25/2024, 01/29/2023 COLORECTAL CANCER SCREENING 02/24/2027 DTAP/TDAP/TD VACCINE (4 - Td or Tdap) 05/14/2027 05/14/2017, 06/23/2015, 08/27/2012 HPV TEST 05/28/2027 05/27/2022 PAP 05/28/2027 05/27/2022, 0808/2021, 12/19/2008, Additional history exists DIABETES SCREENING 09/19/2027 09/18/2024, 0 09/18/2024, 08/10/2024, Additional history exists ADVANCE CARE PLANNING 07/27/2028 07/28/2023, 022 ZOSTER VACCINE (1 of 2) 12/18/2031 HIV SCREENING Completed 12/10/2016, 04/07/2012 TSH W/FREE T4 REFLEX Discontinued 05/27/2022, 12/19/2008, 09/28/2008 PHQ-2 (once per calendar year) Completed 06/18/2024, 05/05/2024, 07/28/2023, Additional history exists HEPATITIS B VACCINE Discontinued HEPATITIS C SCREENING Discontinued HPV VACCINE Aged Out No longer eligi ble based on patient's age to complete this topic MENINGITIS VACCINE Aged Out No longer eligible based on patient's age to complete this topic PNEUMOCOCCAL VACCINE: PEDIATRICS (0 to 5 YEARS) AND AT-RISK PATIENTS (6 to 49 YEARS) Aged Out No longer eligible based on patient's age to complete this topic Procedures Procedure Name Priority Date/Time Associated Diagnosis Comments ANE AIRWAY ETT PERFORMABLE Routine 09/18/2024 2:30 PM CDT CHOLECYSTECTOMY, ROBOT-ASSISTED, LAPAROSCOPIC, USING DA NAA XI 09/18/2024 2:23 PM CDT Acute cholecystitis EXTRA PURPLE TOP TUBE Routine 09/18/2024 6:59 AM CDT EXTRA TUBE Routine 09/18/2024 6:59 AM CDT COMPREHENSIVE METABOLIC PANEL Routine 09/18/2024 6:59 AM CDT US ABDOMEN LIMITED STAT 09/18/2024 1: 02 AM CDT EKG 12-LEAD, TRACING ONLY STAT 09/18/2024 12:18 AM CDT CBC WITH PLATELETS & DIFFERENTIAL STAT 09/18/2024 12:10 AM CDT EXTRA RED TOP TUBE STAT 09/18/2024 12 :10 AM CDT EXTRA BLUE TOP TUBE STAT 09/18/2024 1 2:10 AM CDT CBC WITH PLATELETS AND DIFFERENTIAL STAT 09/18/2024 12:10 AM CDT TROPONIN T, HIGH SENSITIVITY STAT 09/18/2024 12:10 AM CDT LIPASE STAT 09/18/2024 12:10 AM CDT EXTRA TUBE STAT 09/18/2024 12:10 AM CDT COMPREHENSIVE METABOLIC PANEL STAT 09/18/2024 12:10 AM CDT BASIC METABOLIC PANEL Routine 08/10/2024 11:41 AM CDT Overweight with body mass index (BMI) of 26 to 26.9 in adult COLONOSCOPY - HIM SCAN 02/25/2024 12:00 AM WELD ENGINEER LIPID PROFILE Routine 06/11/2023 9:46 AM CDT Encounter for screening for lipoid disorders MAMMOGRAM - HIM SCAN Routine 05/31/2023 TSH WITH FREE T4 REFLEX Routine 05/27/2022 11:00 AM WELD ENGINEER Family history of other endocrine, nutritional and metabolic diseases GYNECOLOGIC CYTOLOGY Routine 05/27/2022 10:48 AM WELD ENGINEER Encounter for gynecological examination (general) (routine) without abnormal findings HPV HIGH RISK TYPES DNA CERVICAL Routine 05/27/2022 10:48 AM WELD ENGINEER Encounter for gynecological examination (general) (routine) without abnormal findings HIV ANTIGEN ANTIBODY COMBO Routine 12/10/2016 FLEXIBLE SIGMOIDOSCOPY Routine 01/04/2009 DIAGNOSIS NOT YET DEFINED from Last 3 Months or Most Recently Relevant to Health Maintenance Results * ANE AIRWAY ETT PERFORMABLE (09/18/2024 2:30 PM CDT) Narrative Jerzy Olmedo APRN WARP KNIT OPERATOR - 09/18/2024 2:30 PM CDT Jerzy Olmedo APRN WARP KNIT OPERATOR 09/18/2024 2:34 PM Airway Patient location during procedure: OR Procedure Start/Stop Times: 09/18/2024 2:30 PM Staff - Performed By: JAMIA Consent for Airway Urgency: elective Indications and [...] Administered Medication Administration Time: 09/18/2024 2:30 PM us Noel Burton MD MD ANESTHESIA Final Result * Extra Purple Top Tube (09/18/2024 6:59 AM CDT) Hold Specimen [facility] 09/18/2024 9:46 AM CDT LABORATORY Blood STRUCTURE OF LEFT UPPER LIMB / Unknown Venipuncture / Unknown 09/18/2024 6:59 AM CDT 09/18/2024 8:37 AM CDT Randee Parikh MD LAB - BLOOD ORDERABLES Final Res ult LABORATORY [facility] [address] Lab (1st floor, no room number) [place] [address] * (ABNORMAL) Comprehensive metabolic panel (09/18/2024 6:59 AM CDT) Only the most recent of2 resultswithin the time period is included. Sodium 140 135 - 145 mmol/L 09/18/2024 [...] - 0.95 mg/dL 09/18/2024 7:26 AM CDT [facility] GFR Estimate 77 >60 mL/min/1.7 3m2 09/18/2024 7:26 AM CDT [facility] Comment:eGFR calculated usin 2020 CKD-EPI equation. Calcium 8.6(L) 8.8 - 10.4 mg/dL 09/18/2024 7:26 AM CDT [facility] Chloride 108(H) 98 - 107 mmol/L 09/18/2024 7:26 AM CDT [facility] Glucose 92 70 - 99 mg/dL 09/18/2024 7:26 AM CDT [facility] Alkaline Phosphatase 72 40 - 150 U/L 09/18/2024 7:26 AM CDT [facility] AST 397(H) 0 - 45 U/L 09/18/2024 7:26 AM CDT [facility] ALT 324(H) 0 - 50 U/L 09/18/2024 7:26 AM CDT [facility] Protein Total 6.1(L) 6.4 - 8.3 [...] - BLOOD ORDERABLES Final Res ult LABORATORY [facility] [address] Lab (1st floor, no room number) [place] [address], [facility] * US Abdomen Limited (09/18/2024 1:02 AM CDT) Anatomical Region Laterality Modality Abdomen/Pelvis Ultrasound 09/18/2024 1:02 AM CDT Impressions 09/18/2024 1:34 AM CDT IMPRESSION: 1. Several small gallstones are present within a mildly distended and slightly thick-walled gallbladder. Additionally, the cardiopulmonary technologist chief reports that the patient has focal tenderness over the gallbladder. These findings are at least mildly to moderately suspicious for acute cholecystitis. Recommend clinical correlation. If desired, a HIDA scan could be considered for confirmation of acute cholecystitis. 2. No biliary dilatation. Narrative 09/18/2024 1:34 AM CDT EXAM: ULTRASOUND ABDOMEN LIMITED - RIGHT UPPER QUADRANT LOCATION: [facility] DATE/TIME: 09/18/2024 1:02 AM CDT INDICATION: Right upper quadrant pain. COMPARISON: 11/27/2022 - CT abdomen and pelvis. TECHNIQUE: Limited abdominal ultrasound. FINDINGS: GALLBLADDER: Several small gallstones within a mildly distended gallbladder. Slight gallbladder wall thickening. No pericholecystic fluid. The cardiopulmonary technologist chief reports that the patient has focal tenderness [...] ABDOMEN LIMITED - RIGHT UPPER QUADRANT LOCATION: [facility] DATE/TIME: 09/18/2024 1:02 AM CDT INDICATION: Right upper quadrant pain. COMPARISON: 11/27/2022 - CT abdomen and pelvis. TECHNIQUE: Limited abdominal ultrasound. FINDINGS: GALLBLADDER: Several small gallstones within a mildly distendedgallbladder. Slight gallbladder wall thickening. No pericholecystic fluid.The cardiopulmonary technologist chief reports that the patient has focal tendernesswhen [...] confirmationof acute cholecystitis. 2. No biliary dilatation. Tyrell Aguero MD IMG US ORDERABLES Final Result * EKG 12-lead, tracing only (09/18/2024 12:18 AM CDT) Systolic Blood Pressure mmHg RADIOLOGY RESULTS Diastolic Blood Pressure mmHg RADIOLOGY RESULTS Ventricular Rate 79 BPM RAD IOLOGY RESULTS Atrial Rate BPM RADIOLOG Y RESULTS MD Interval ms RADIOLOG Y RESULTS QRS Duration 80 ms RADIOLO GY RESULTS QT 398 ms RADIOLOGY RESULTS QTc 456 ms RADIOLOGY RESULTS P [place] degrees RADIOLOGY RESULTS R AXIS 17 degrees RADIOLOGY RESULTS T [place] 62 degrees RADIOLOGY RESULTS Interpretation ECG Accelerated Junctional rhythm Low voltage QRS Poor R-wave progression ; consider anterior infarct, lead placement, or normal variant Abnormal ECG No previous ECGs available Unconfirmed report - interpretation of this ECG is computer generated - see medical record for final interpretation Confirmed by - EMERGENCY ROOM, PHYSICIAN ([id number]), photograph editor Kentrell Damon ([id number]) on 09/20/2024 7:46:26 AM RADIOLOGY RESULTS 09/18/2024 12:1 8 AM CDT 09/20/2024 7:46 AM CDT Tyrell Aguero MD ECG ORDERABLES E dited Result - Final RADIOLOGY RESULTS * Extra Red Top Tube (09/18/2024 12:10 AM CDT) Hold Specimen [facility] 09/18/2024 1:31 AM CDT [facility] Blood BLOOD SPECIMEN / Unknown Venipuncture / Unknown 09/18/2024 12:10 AM CDT 09/18/2024 12:18 AM CDT Tyrell Aguero MD LAB - BLOOD ORDER YAAKOV Final Result [facility] LABORATORY [facility] [address] Lab (1st floor, no room number) [place] [address] * Extra Blue Top Tube (09/18/2024 12:10 AM CDT) Hold Specimen [facility] 09/18/2024 1:31 AM CDT [facility] Blood BLOOD SPECIMEN / Unknown Venipuncture / Unknown 09/18/2024 12:10 AM CDT 09/18/2024 12:18 AM CDT Tyrell Aguero MD LAB - BLOOD ORDER YAAKOV Final Result LABORATORY [facility] [address] Lab (1st floor, no room number) [place] [address] * CBC with platelets and differential (09/18/2024 [...] NRBCs 0.0 10e3/uL 09/18/2024 12:22 AM CDT [facility] Blood BLOOD SPECIMEN / Unknown Venipuncture / Unknown 09/18/2024 12:10 AM CDT 09/18/2024 12:18 AM CDT us Tyrell Aguero MD LAB - BLOOD ORDER YAAKOV Final Result LABORATORY [facility] [address] [facility] Lab (1st floor, no room number) [place] [address], [facility] * Troponin T, High Sensitivity (09/18/2024 12:10 AM CDT) Troponin T, High Sensitivity <6 <=14 ng/L [...] LAB - BLOOD ORDER YAAKOV Final Result [facility] [address] Lab (1st floor, no room number) [address] [place] [address] * (ABNORMAL) Lipase (09/18/2024 12:10 AM CDT) [facility] Lipase 73(H) 13 - 60 U/L 09/18/2024 12:43 AM CDT LABORATORY Blood BLOOD SPECIMEN / Unknown Venipuncture / Unknown 09/18/2024 12:10 AM CDT 09/18/2024 12:18 AM CDT Tyrell Aguero MD LAB - BLOOD ORDER YAAKOV Final Result [facility] [address] Lab (1st floor, no room number) [place] [phone] * (ABNORMAL) Basic metabolic panel (08/10/2024 11:41 [...] 08/10/2024 12:26 PM CDT LABORATORY Comment:eGFR calculated usin 2020 CKD-EPI equation. Calcium 9.4 8.8 - 10.4 mg/dL 08/10/2024 12:26 PM T LABORATORY Glucose 79 70 - 99 mg/dL 08/10/2024 12:26 PM CDT LABORATORY Blood STRUCTURE OF RIGHT UPPER LIMB / Unknown Venipuncture / Unknown 08/10/2024 11:41 AM CDT 08/10/2024 11:41 AM CDT Kenisha Rodriges PA-C LAB - BLOOD ORDERABLES Final Result LABORATORY [facility] Lab [address] 1[address] floor, [address] [place] [address], [facility] [phone] * Colonoscopy - HIM Scan (02/25/2024 12:00 AM WELD ENGINEER) 02/25/2024 us Provider Outside PROCEDURES Final Result * (ABNORMAL) Lipid Profile (06/11/2023 9:46 AM CDT) Cholesterol 226(H) <200 mg/dL 06/12/2023 11:22 AM CDT [facility] Triglycerides 140 <150 mg/dL 06/12/2023 11:22 AM CDT [facility] Direct Measure HDL 55 >=50 mg/dL 06/12/2023 11:22 AM CDT [facility] LDL Cholesterol Calculated 143(H) <=100 mg/dL 06/12/2023 11:22 AM CDT [facility] Non HDL Cholesterol 171(H) <130 mg/dL 06/12/2023 11:22 AM CDT [facility] Patient Fasting > 8hrs? Yes 06/12/2023 11:22 AM CDT [facility] Blood BLOOD SPECIMEN / Unknown Client Draw / Unknown 06/11/2023 9:46 AM CDT 06/11/2023 3:36 PM CDT Narrative [facility] - 06/12/2023 11:22 AM CDT Cholesterol Desirable: <200 mg/dL Triglycerides Normal: Less than 150 mg/dL Borderline High: 150-199 mg/dL High: 200-499 mg/dL Very High: Greater than or equal to 500 mg/dL Direct Measure HDL Female: Greater than or equal to 50 mg/dL Male: Greater than or equal to 40 mg/dL LDL Cholesterol Desirable: <100mg/dL Above Desirable: 100-129 mg/dL Borderline High: 130-159 mg/dL High: 160-189 mg/dL Very High: >= 190 mg/dL Non HDL Cholesterol Desirable: 130 mg/dL Above Desirable: 130-159 mg/dL Borderline High: 160-189 mg/dL High: 190-219 mg/dL Very High: Greater than or equal to 220 mg/dL us Loraine Taylor MD LAB - BLOOD ORDERABLES Final R esult [facility]AT[facility] [address] [facility], [address] [place] [address], [facility] * Mammogram - HIM Scan (05/31/2023) Anatomical Region Laterality Modality Other Narrative 05/31/2023 See encounter dated 07/28/23 us Patient Reported IMG MAMMOGRAPHY ORDERABLES [place] l Result * TSH with free T4 reflex (05/27/2022 11:00 AM WELD ENGINEER) TSH 2.27 0.30 - 4.20 uIU/mL 05/27/2022 6:28 PM WELD ENGINEER [facility] Blood BLOOD SPECIMEN / Unknown Client Draw / Unknown 05/27/2022 11:00 AM WELD ENGINEER 05/27/2022 3:35 PM WELD ENGINEER Loraine Taylor MD LAB - BLOOD ORDERABLES Final R esult U LABORATORY [facility] [address] [facility], [address] [address], [facility] [phone] * Gynecologic Cytology (PAP) (05/27/2022 10:48 AM WELD ENGINEER) Interpretation Negative for Intraepithelial Lesion or Malignancy (NILM) 05/29/2022 8:32 AM WELD ENGINEER [facility] at 0832 WELD ENGINEER Comment Papanicolaou Test Limitations: Cervical cytology is a screening test with limited sensitivity, and regular screening is critical for cancer prevention. Pap tests are primarily effective for the diagnosis/prevent ion of squamous cell carcinoma, not adenocarcinoma or other cancers. 05/29/2022 8:32 AM WELD ENGINEER [facility] Specimen Adequacy Satisfactory for evaluation, endocervical/lara sformation zone component present 05/29/2022 8:32 AM WELD ENGINEER [facility] Clinical Information none 05/29/2022 8:32 AM WELD ENGINEER [facility] LMP/Menopause Date na 05/29/2022 8:32 AM WELD ENGINEER [facility] Reflex Testing Yes regardless of result 05/29/2022 8:32 AM WELD ENGINEER [facility] Previous Abnormal? No 05/29/2022 8:32 AM WELD ENGINEER [facility] Previous Abnormal Diagnosis lps -2017 neg/HPV-neg 05/29/2022 8:32 AM WELD ENGINEER [facility] Performing Labs The technical component of this testing was completed at [facility] 05/29/2022 8:32 AM WELD ENGINEER [facility] Brushing CERVIX UTERI STRUCTURE / Unknown 05/27/2022 10:48 AM WELD ENGINEER 05/28/2022 8:15 AM WELD ENGINEER Loraine OMER - MARTÍN AP Final Result [facility] [address] [facility] [address], [address] [address], [facility] [phone] * HPV High Risk Types DNA Cervical (05/27/2022 10:48 AM WELD ENGINEER) Other HR HPV Negative Negative 05/30/2022 2:34 PM WELD ENGINEER [facility] HPV16 DNA Negative Negative 05/30/2022 2:34 PM WELD ENGINEER [facility] HPV18 DNA Negative Negative 05/30/2022 2:34 PM WELD ENGINEER [facility]NOST[facility] FINAL DIAGNOSIS This patient's sample is negative for HPV DNA. This test was developed and its performance characteristics determined by the [facility], [facility]. It has not been cleared or approved by the FDA. The laboratory is regulated under CLIA as qualified to perform high-complexity testing. This test is used for clinical purposes. It should not be regarded as investigational or for research. METHODOLOGY: The Karen Marin 4800 system uses automated extraction, simultaneous amplification of HPV (L1 region) and beta-globin, followed by real time detection of fluorescent labeled HPV and beta globin using specific oligonucleotide probes. The test specifically identifies types HPV 16 DNA and HPV 18 DNA while concurrently detecting the rest of the high risk types (31, 33, 35, 39, 45, 51, 52, 56, 58, 59, 66 or 68). COMMENTS: This test is not intended for use as a screening device for woman under age 30 with normal cervical cytology. Results should be correlated with cytologic and histologic findings. Close clinical followup is recommended. 05/30/2022 2:34 PM WELD ENGINEER [facility]NOST[facility] Brushing CERVIX UTERI STRUCTURE / Unknown Non-blood Collection / Unknown 05/27/2022 10:48 AM WELD ENGINEER 05/30/2022 8:38 AM WELD ENGINEER Loraine Taylor MD LAB - BLOOD ORDERABLES Final R esult [facility] [address] [facility] J Building, Room [address] [place] [id number], [facility] [phone] * HIV Antigen Antibody Combo (12/10/2016) HIV Antigen Antibody Combo Negative Blood specimen (specimen) us Patient Reported LAB - BLOOD ORDERABLES Final Re sult * FLEXIBLE SIGMOIDOSCOPY (01/04/2009) us Claudio Moore MD PROCEDURES Final Result from Last 3 Months or Most Recently Relevant to Health Maintenance Insurance CORE [facility] CORE [facility] OTHER * Guarantor: AndreRica samuelshekhar jackson Account Type Relation to Patient Date of Phone Billing Address Medication Therapy Self 1980 [id number] [place] [id number] [facility] CORE Advance Directives For more information, please contact: [phone] * Full Code (Latest Code Status on File) Date Activated Date Inactivated Comments 09/18/2024 3:21 AM 09/18/2024 7:00 PM All basic an d advanced life-sustaining interventions are performed as appropriate Question Answer Comments Code status determined by: Discussion with barbara nt/ legal decision maker * Full Code Date Activated Date Inactivated Comments 10/18/2016 7:29 AM 10/18/2016 12:21 PM Care Teams Face Man Relationship Specialty Start Date End Date Yazmin Burnham APRN CONTRACT ASSOCIATE [id number] [facility] [place] [id number] PCP - General 02/02/24 Yazmin Burnham APRN CNP [address] [facility] [place] [phone] Assigned PCP 09/14/23 Kenisha Rodriges PA-C [address] [place] [address] Assigned Surgical Provider 02/14/24 Kari Boykin [facility] [address] [place] [address] [phone] Pharmacist Pharmacist 05/05/24 Kari Boykin [facility] [address] [place] [address] [phone] Assigned MTM Pharmacist 05/16/24
--- OUTSIDE RECORDS SUMMARY | 2024-09-21 01:54 | XMS_ITS | Encounter Summary ---
Author Organization [facility] Address [address] [place] [id number] Care Team Providers Care Tile Molder Name Role Phone ChristinaJeramy valenciaalicia LEE SOCIAL MEDIA MARKETING ANALYST Unavailable [phone] Yazmin Burnham APRN [facility] Primary Care Provider + Kenisha Rodriges PA-C Unavailable [phone] Kari Boykin [facility] Unavailable [phone] Kari Boykin [facility] Unavailable [phone] Encounter Details Date Type Department Care Team (Latest Contact Info) Description 08/10/2024 Travel Social History Tobacco Use Types Packs/Day [...] often do you attend chur ch or pentecostalism services? More than 4 times per year 04/23/2021 Do you belong to any clubs o r organizations such as anabaptism groups, unions, fraternal or athletic groups, or [...] Answer Date Recorded PHQ-2 Score 0 06/18/2024 [facility] - Occupational Stress [...] place to sleep or slept in a longterm (including now)? 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 Not on file Not on file documented as of this encounter Plan of Treatment Upcoming Encounters Date Type Department Care Team (Late st Contact Info) Description 01/25/2025 11:00 AM RUCHING MACHINE OPERATOR Office Visit [facility] [address] [place] [phone] Kenisha Rdoriges PA-C [address] [place] [address] [place] [phone] documented as of this encounter Visit Diagnoses Not on filedocumented in this encounter Care Teams Tile Molder Relationship Specialty Start Date End Date Yazmin Burnham APRN SOCIAL MEDIA MARKETING ANALYST [address] [place] [address] [place] [phone] PCP - General 02/02/24 Yazmin Burnham APRN SOCIAL MEDIA MARKETING ANALYST [address] [place] [address] [place] [phone] Assigned PCP 09/14/23 Kenisha Rodriges PA-C [address] [place] [address] Assigned Surgical Provider 02/14/24 Kari Boykin [facility] [address] [place] [id number] Pharmacist Pharmacist 05/05/24 Kari Boykin [facility] [address] [place] [address] [phone] Assigned [place] Pharmacist 05/16/24 documented as of this encounter
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
--- OUTSIDE RECORDS SUMMARY | 2024-09-21 01:55 | XMS_ITS | Encounter Summary ---
Author Organization [facility] Address [address] [place] [address] Care Team Providers Care Cancer Genetic Counselor Name Role Phone Tej Yazmin LEE CLOCK REPAIR TECHNICIAN Unavailable [phone] Yazmin Burnham APRN CLOCK REPAIR TECHNICIAN Primary Care Provider + Kenisha Rodriges PA-C Unavailable Kari Boykin [facility] Unavailable [phone] Kari Boykin [facility] Unavailable [phone] Encounter Details Date Type Department Care Team (Late st Contact Info) Description 06/03/2024 [facility] [place] [facility] [address] [place] [address] Kari Boykin, [facility] [address] [place] [address] Social History Tobacco Use Types Packs/Day Years [...] often do you attend chur ch or sabianism services? More than 4 times per year 04/23/2021 Do you belong to any clubs o r organizations such as mosque groups, unions, fraternal or athletic groups, or [...] 04/23/2021 PHQ-2 Answer Date Recorded PHQ-2 Score 2 05/05/2024 [facility] of Occupat ional Health - Occupational Stress [...] medical appointments or from getting medications? No 01/3 03/2021 In the past 12 months, has l [...] place to sleep or slept in a prison (including now)? 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 on file documented as of this encounter Plan of Treatment Upcoming Encounters Date Type Department Care Team (Late st Contact Info) Description 01/25/2025 11:00 AM SLOT FLOOR PERSON Office Visit [facility] [place] [address] [facility] [address] [place] [address] Kenisha Rodriges PA-C [address] [address] documented as of this encounter Visit Diagnoses Not on filedocumented in this encounter Care Teams Cancer Genetic Counselor Relationship Specialty Start Date End Date Yazmin Burnham APRN CLOCK REPAIR TECHNICIAN [address] [facility] [place] [address] PCP - General 02/02/24 Yazmin Burnham APRN CNP [address] [facility] [place] [address] Assigned PCP 09/14/23 Kenisha Rodriges PA-C [address] [place] [address] Assigned Surgical Provider 02/14/24 Kari Boykin [facility] [address] [place] [address] [id number] Pharmacist Pharmacist 05/05/24 Kari Boykin [facility] [address] [place] [address] [id number] Assigned MTM Pharmacist 05/16/24 documented as of this encounter
--- OUTSIDE RECORDS SUMMARY | 2024-09-21 01:55 | XMS_ITS | Encounter Summary ---
Author Organization [place] Address [address] [place] [address] Care Team Providers Care Impregnator Name Role Phone Tej Yazmin LEE LEGAL PRACTICE MANAGER Unavailable [phone] Yazmin Burnham APRN LEGAL PRACTICE MANAGER Primary Care Provider + Kenisha Rodriges PA-C Unavailable [phone] Kari Boykin [facility] Unavailable [phone] Kari Boykin [facility] Unavailable [phone] Encounter Details Date Type Department Care Team (Late st Contact Info) Description 06/18/2024 [facility] [place]ice [facility] Multiple Specialty [facility] [address] [facility] [address] [place] [address] Kari Boykin, [facility] [address] [place] [address] Social History Tobacco Use Types [...] often do you attend chur ch or sabianist services? More than 4 times per year 04/23/2021 Do you belong to any clubs o r organizations such as caodaism groups, unions, fraternal or athletic groups, or [...] PHQ-2 Score 0 06/18/2024 [facility] of Occupat ional Health - Occupational [...] place to sleep or slept in a alf (including now)? 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 as of this encounter Plan of Treatment Upcoming Encounters Date Type Department Care Team (Late st Contact Info) Description 01/25/2025 11:00 AM CHERRY SORTER Office Visit [facility] [place] [address] [facility] [address] [place] [address] Kenisha Rodriges PA-C [address] [place] [address] [address] documented as of this encounter Visit Diagnoses Not on filedocumented in this encounter Care Teams Impregnator Relationship Specialty Start Date End Date Yazmin Burnham APRN LEGAL PRACTICE MANAGER [address] [facility] [place] [address] PCP - General 02/02/24 Yazmin Burnham APRN CNP [address] [facility] [place] [address] Assigned PCP 09/14/23 Kenisha Rodriges PA-C [address] [place] [address] Assigned Surgical Provider 02/14/24 Kari Boykin [facility] [address] [place] [address] [phone] Pharmacist Pharmacist 05/05/24 Kari Boykin [facility] [address] [place] [address] [id number] Assigned MTM Pharmacist 05/16/24 documented as of this encounter
--- OUTSIDE RECORDS SUMMARY | 2024-09-21 01:55 | XMS_ITS | Encounter Summary ---
Author Organization [facility] Address [address] [place] [address]. [place] [address] Care Team Providers Care Packer Sausage And Wiener Name Role Phone Tej Yazmin LEE DIE PRESS OPERATOR Unavailable [phone] Yazmin Burnham APRN [facility] Primary Care Provider + Kenisha Rodriges PA-C Unavailable [phone] Kari Boykin [facility] Unavailable Kari Boykin [facility] Unavailable [phone] Encounter Details Date Type Department Care Team (Late st Contact Info) Description 02/11/2024 [facility] Medical Advice [facility] [address] [place] [address] Kenisha Rodriges PA-C [address] [facility] [place] [id number] Nausea (Primary Dx) Social History Tobacco Use Types [...] How often do you attend chur or uatsdin services? More than 4 times per year 04/23/2021 Do you belong to any clubs o r organizations such as faith groups, unions, fraternal or athletic groups, or [...] PHQ-2 Answer Date Recorded PHQ-2 Score 2 07/28/2023 [facility] of Occupat ional Health - Occupational Stress [...] No 04/23/2021 Housing Stability Vital Sign Answer Chrsi e Recorded In the last 12 months, [...] Sex Assigned at Female 04/07/2021 11:56 AM POWDER CORE TESTER Legal Sex Female 3:20 AM POWDER CORE TESTER Gender Identity Female 04/07/2021 11:56 AM POWDER CORE TESTER Sexual Orientation Straight 04/07/2021 11 :56 AM POWDER CORE TESTER 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 Lizy Jones RN, BSN ER CORE TESTER documented in this encounter Plan of Treatment Upcoming Encounters Date Type Department Care Team (Late st Contact Info) Description 01/25/2025 11:00 AM POWDER CORE TESTER Office Visit [facility] [place] [address] [place] [phone] Kenisha Rodriges PA-C [address] [address] documented as of this encounter Visit Diagnoses Diagnosis Nausea- Primary Nausea alone documented in this encounter Care Teams Packer Sausage And Wiener Relationship Specialty Start Date End Date Yazmin Burnham APRN DIE PRESS OPERATOR [address] [place] [address] [place] [address] PCP - General 02/02/24 Yazmin Burnham APRN DIE PRESS OPERATOR [address] [place] [address] [place] [address] Assigned PCP 09/14/23 Kenisha Rodriges PA-C [address] [place] [address] Assigned Surgical Provider 02/14/24 Kari Boykin [facility] [address] [place], [place] [address] Pharmacist Pharmacist 05/05/24 Kari Boykin [facility] [place], [place] [id number] Assigned MTM Pharmacist 05/16/24 documented as of this encounter
--- OUTSIDE RECORDS SUMMARY | 2024-09-21 01:55 | XMS_ITS | Encounter Summary ---
Author Organization [facility] Address [address] [place] [address]. [place] [address] Care Team Providers Care Enrolled Agent Name Role Phone [facility]- Primary Care Provider Ekaterina Cragi PA-C Unavailable Satnam Pizarro MD Unavailable Yazmin Burnham APRN LAUNDRY HOUSEKEEPING AIDE Unavailable aYzmin Burnham APRN [facility] Primary Care Provider + Kenisha RodrigesC Unavailable [phone] Kari Boykin [facility] Unavailable [phone] Kari Boykin [facility] Unavailable [phone] Reason for Visit * Reason Comments Medication Refill Encounter Details Date Type Department Care Team (Late st Contact Info) Description [facility]/03/[facility] [place] [address] [facility] [address] [place] [address] Sy Brooks MD [address] [facility] [address] [place] [address] Medication Refill Social History Tobacco Use Types Packs/Day Years Used Date Smoking Tobacco: Former Cigarettes Q uit: 05/13/2004 Smokeless Tobacco: Never Alcohol Use Standard Drinks/Week Comments No 0 (1 standard drink = 0.6 oz pur e alcohol) Social Connection and Isolat ion Panel [NHANES] Answer Date Recorded In a typical week, how many times do you talk on the phone with family, friends, or neighbors? More than three times a week 04/23/2021 How often do you get togethe r with friends or relatives? Once a week 04/23/2021 How often do you attend chur or zoroastrianism services? More than 4 times per year 04/23/2021 Do you belong to any clubs o r organizations such as yarsanism groups, unions, fraternal or athletic groups, or [...] and heating? Not hard at all 04/23/2021 [facility] of Occupat ional Health - [...] place to sleep or slept in a custodial (including now)? 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 No / Unsure 04/23/2021 7:16 AM WASTEWATER PROJECT MANAGER documented as of this encounter Miscellaneous Notes * Telephone Encounter - Rosana Christina APRN CNP - 05/04/2021 5:05 PM CST This is an OTC medication and does not need a prescription. EWATER PROJECT MANAGER documented in this encounter Plan of Treatment Upcoming Encounters Date Type Department Care Team (Late st Contact Info) Description 01/25/2025 11:00 AM WASTEWATER PROJECT MANAGER Office Visit [facility] [address] [place] [phone] Kenisha Rodriges PA-C [address] [place] [address] documented as of this encounter Visit Diagnoses Diagnosis Acute sinusitis with symptoms > 10 days Acute sinusitis, unspecified documented in this encounter Care Teams Enrolled Agent Relationship Specialty Start Date End Date [facility] [address] [place] [address] PCP - General 01/19/19 02/01/24 Yazmin Burnham APRN LAUNDRY HOUSEKEEPING AIDE [address] [place] [address] [place] [address] PCP - General 02/02/24 Ekaterina Craig PA-C [facility] [place] [address] [place] [address] Assigned PCP 03/29/21 03/15/22 Satnam Pizarro MD [address] [place] [address] Assigned PCP 03/16/22 09/13/23 Yazmin Burnham APRN LAUNDRY HOUSEKEEPING AIDE [address] [place] [address] [place] [address] Assigned PCP 09/14/23 Kenisha Rodriges PA-C [address] [place] [address] [address] Assigned Surgical Provider 02/14/24 Kari Boykin [facility] [address] [place] [id number] Pharmacist Pharmacist 05/05/24 Kari Boykin [facility] [address] [place] [address] Assigned MTM Pharmacist 05/16/24 documented as of this encounter
--- OUTSIDE RECORDS SUMMARY | 2024-09-21 01:55 | XMS_ITS | Encounter Summary ---
Author Organization [facility] Address [address] [place] [address] Care Team Providers Care Biofuels Research Scientist Name Role Phone ChristinaJeramy valenciaalicia LEE ADMINISTRATIVE RESIDENT Unavailable [phone] Yazmin uBrnham APRN ADMINISTRATIVE RESIDENT Primary Care Provider + Kenisha Rodriges PA-C Unavailable [phone] Kari Boykin [facility] Unavailable [phone] Kari Boykin [facility] Unavailable Encounter Details Date Type Department Care Team (Late st Contact Info) Description 02/06/2024 MyC Medical Advice [facility] Pharm D Project [address] [place] [address] Vashti Baker Social History Tobacco Use Types Packs/Day Years [...] week 04/23/2021 How often do you attend [facility] or restorationism services? More than 4 times per year [...] Answer Date Recorded PHQ-2 Score 2 07/28/2023 [facility] - Occupational Stress Questionnaire Answer Date [...] in a custodial (including now)? 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 of this encounter Plan of Treatment Upcoming Encounters Date Type Department Care Team (Late st Contact Info) Description 01/25/2025 11:00 AM TELEVISION SERVICE ENGINEER Office Visit [facility] [address] [place] [phone] Kenisha Rodriges PA-C [address] [facility] [place] [address] documented as of this encounter Visit Diagnoses Not on filedocumented in this encounter Care Teams Biofuels Research Scientist Relationship Specialty Start Date End Date Yazmin Burnham APRN ADMINISTRATIVE RESIDENT [address] [facility] [place] [address] PCP - General 02/02/24 Yazmin Burnham APRN ADMINISTRATIVE RESIDENT [address] [place] [address] Assigned PCP 09/14/23 Kenisha Rodriges PA-C [address] [id number] Assigned Surgical Provider 02/14/24 Kari Boykin [facility] [address] [place] [phone] Pharmacist Pharmacist 05/05/24 Kari Boykin [facility] [address] [place], [place] 418[address] Assigned MTM Pharmacist 05/16/24 documented as of this encounter
--- OUTSIDE RECORDS SUMMARY | 2024-09-21 01:55 | XMS_ITS | Clinical Summary ---
Author Organization [employer] [facility] Address [facility] [place] [address] Care Team Providers Care Real Estate Photographer Name Role Phone Anup Thakur MD Primary Care Provider [phone] Allergies No known active allergies Medications fluoxetine (PROZAC) 20 mg capsule Take 1 capsule by mouth every morning. 0 08/13/2009 Active oxyCODONE (ROXICODONE) 5 mg capsule Take 5 mg by mouth every 3 hours if needed. 11/13/2012 Active ibuprofen (ADVIL; MOTRIN) 200 mg tablet Take 400 mg by mouth every 6 hours if needed. 11/13/2012 Active vitamin-folic acid 1 mg ( VITAMIN) tablet/capsule Take 1 tablet by mouth once daily. 11/13/2012 Active docusate (COLACE) 100 mg capsule Take 100 mg by mouth 3 times daily if needed. 11/13/2012 Active Social History Tobacco Use Types Packs/Day Years Used Date Smoking Tobacco: Never Assessed Comments Unknown Sex and Gender Information Value Date Recorded Sex Assigned at Not on file Legal Sex Female 12:35 PM CDT Gender Identity Not on file Sexual Orientation Not on file Last Filed Vital Signs Vital Sign Reading Time Taken Comments Blood Pressure 118/80 11/13/2012 9:00 AM CDT Pulse - - Temperature 37 C (98.6 F) 08/13/2009 11:22 AM CDT Respiratory Rate - - Oxygen Saturation - - Inhaled Oxygen Concentration - - Weight - - Height - - Body Mass Index - - Plan of Treatment Health Maintenance Due Date Last Done Comments Tdap 1992 Depression screening for age 12+ 1993 HIV for age 15-65 1996 BMI (ht and wt on same day) for age 18+ 12/18/1999 Hepatitis C screening for ag e 18-79 12/18/1999 Hepatitis B series for 19+ ( 1 of 3 - 19+ 3-dose series) 2000 Tetanus booster 2001 Pap test for age 21-65 2002 COVID-19 vaccine series ( - 2023- season) 2023 Influenza Vaccine (Season Ended) 2024 Pneumococcal series for age 6-49 Aged Out No longer eligible based on patient's age to complete this topic Insurance [facility] Care Teams Real Estate Photographer Relationship Specialty Start Date End Date Anup Thakur MD PCP - General Obstetrics and Gynecology 11/12/12
--- OUTSIDE RECORDS SUMMARY | 2024-09-21 01:55 | XMS_ITS | Encounter Summary ---
Author Organization [facility] Address [address] [place] [address] Care Team Providers Care Coach Tour Driver Name Role Phone Nirav Moore MD Primary Care Provider [phone] Anup Thakur MD Primary Care Provider [phone] Leyda Ramires MD Primary Care Provider [phone] Loraine Taylor MD Primary Care Provider [phone] [facility]- Primary Care Provider Ekaterina CraigC Unavailable Satnam Pizarro MD Unavailable [phone] Yazmin Burnham APRN CYLINDER PRESS OPERATOR HELPER Unavailable [phone] Yazmin Burnham APRN CYLINDER PRESS OPERATOR HELPER Primary Care Provider + Kenisha Rodriges-C Unavailable [phone] Kari Boykin [facility] Unavailable [phone] Kari Boykin [facility] Unavailable [phone] Encounter Details Date Type Department Care Team (Late st Contact Info) Description 10/31/2006 Office Visit-[facility] Heart [address] [place] [address] Jerzy Nelson MD Social History Tobacco Use Types Packs/Day Years Used Date Smoking Tobacco: Never Assessed Comments Unknown Sex and Gender Information Value Date Recorded Sex Assigned at Female 04/07/2021 11:56 AM FOUNTAIN VENDING MECHANIC Legal Sex Female 3:20 AM FOUNTAIN VENDING MECHANIC Gender Identity Female 04/07/2021 11:56 AM FOUNTAIN VENDING MECHANIC Sexual Orientation Straight 04/07/2021 11 :56 AM FOUNTAIN VENDING MECHANIC documented as of this encounter Progress Notes * Jerzy Nelson MD - 11/03/2006 2:51 PM CDT Progress Note Created by: Jerzy Nelson M.D. DATE: 10/31/2006 DAPHNE CRAIN DATE OF : 1980 AGE: [age] years old Referring Physician: NIRAV MOORE Referring Clinic: [facility] CURRENT DIAGNOSES 1. - Hypertension, benign, 401.1 2. - Chest Pain-unspecified, 786.50 ALLERGIES NKA MEDICATIONS (prior to changes made today) 1. Fluoxetine 20 mg, 1 p.o. q.d. 2. Ibuprofen 200 mg, PRN CHIEF COMPLAINTS Followup of - Chest Pain-unspecified HISTORY OF PRESENT ILLNESS Thank you for asking me to see Daphne Crain in cardiology consultation. Daphne is a 25-year-old patient whom you asked me to see for evaluation of blood pressure and chest discomfort. Pamela has been using control for a number of years because of endometriosis and painful menstrual cycles. The medications I believe have been controlling her symptoms fairly well but she has been found to have some hypertension over the last few months which has been concerning to her family physician and herself. Her control medications were discontinued and she began checking her blood pressure on a regular basis. She brought in that list today. I believe her blood pressure medicines were stopped just about 5 weeks ago and she brought in about 10 or 12 blood pressure readings over that time frame. One of the blood pressure readings was in the 150s and all of the other blood pressure readings were very acceptable with most of them less than 130, many in the one teens. It appears that her hypertension, with blood pressures I believe mostly in the 140s, has resolved since her control medications were stopped. Daphne also is seeing me because she was having chest discomfort. This began many months ago and first she was having about one episode a day and then they became more frequent. These are sharp and located in the left upper chest area. They did not radiate elsewhere and not associated with nausea, shortness of breath or diaphoresis. The pain was very localized and her chest would feel tender whenshe had these episodes. They became more frequent, occurring up to several times per day, and they would take her breath away. The pain was pleuritic. She did not notice any particular stimuli that would bring them on but they have now resolved and she has not had any for at least two weeks now. Daphne has no cardiac risk factors and is in good health other than her endometriosis and possibly the hypertension which is new in onset. She was having quite a bit of discomfort and was quite worried about it at the time that she had her hypertension and it certainly is possible that these are related to this. PAST HISTORY Past Medical Illnesses: hypertension Past Cardiac Illnesses: chest pain Surgical Procedures: appendectomy, wisdom teeth extraction FAMILY HISTORY: Parents - alive and well and unremarkable; CARDIAC RISK FACTORS Tobacco Abuse: negative; Family History of Heart Disease: negative; Hyperlipidemia: lipid status unknown; Hypertension: negative; Diabetes Mellitus: negative; Prior History of Heart Disease: negative; Obesity:negative; Sedentary Life Style:negative; Age:negative ; LDL Goal <LT> 100 SOCIAL HISTORY Alcohol Use - drinks rarely and socially; Smoking - used to smoke but quit, quit in 2004 and 03/27ppdx 3 yrs; Diet - weight Reduction Diet and caffeine use-1-2 per day; Lifestyle - single, drives car and active lifestyle; Exercise - exercises regularly and walking; Seat Belt Use - always; Occupation- [employer]; Residence - lives alone and lives in [place] year round; Place of - [place]; Hours Worked - 50 hours per week; REVIEW OF SYSTEMS GENERAL weight loss INTEGUMENTARY denies any change in hair or nails, rashes, or skin lesions. EYES wears eye glasses/contact lenses EARS, NOSE, THROAT, MOUTH denies any hearing loss, epistaxis, hoarseness or difficulty speaking. RESPIRATORY denies dyspnea, cough, wheezing or hemoptysis. CARDIOVASCULAR sharp and on the left side at any time ABDOMINAL denies ulcer disease, hematochezia or melena. MUSCULOSKELETAL denies any history of arthritic symptoms or back problems. NEUROLOGICAL denies any history of recurrent strokes, headaches, TIA, or seizure disorder. PSYCHIATRIC depression ENDOCRINE denies any history of hyperlipidemia, thyroid disease or diabetes mellitus. HEMATOLOGICAL/IMMUNOLOGIC denies any food allergies, seasonal allergies, bleeding disorders. PHYSICAL EXAMINATION VITAL SIGNS: Blood Pressure: 123/79 Sitting, Left arm, regular cuff Pulse- 76.00/min. Weight- 156.00 lbs. Height- 66.00 Temperature- .00 CONSTITUTIONAL cooperative, alert and oriented,well developed, well nourished, in no acute distress. SKIN warm and dry to touch, no apparent skin lesions, or masses noted. HEAD normocephalic, atraumatic EYES Pupils equal and round, conjunctivae and lids unremarkable, sclera white, no xanthalasma ENT no pallor or cyanosis, dentition good NECK carotid pulses are full and equal bilaterally, JVP normal, no carotid bruit, no thyromegaly CHEST normal symmetry, no tenderness to palpation, normal respiratory excursion, no intercostal retraction, no use of accessory muscles, clear to auscultation and percussion. CARDIAC regular rhythm, S1 normal, S2 normal, No S3 or S4, Apical impulse not displaced, no murmurs, gallops or rubs detected. ABDOMEN abdomen soft, bowel sounds normoactive, no masses, no hepatosplenomegaly, non- tender, no bruits PERIPHERAL PULSES pulses full and equal in all extremities, no bruits auscultated. EXTREMITIES & BACK no deformities, clubbing, cyanosis, erythema or edema observed. There are no spinal abnormalities noted. Normal muscle strength and tone. NEUROLOGICAL no gross motor deficits noted, affect appropriate, oriented to time, person and place. MEDICATIONS UPDATED/STARTED TODAY: Fluoxetine 20 mg, 1 p.o. q.d., 0 Ibuprofen 200 mg, PRN, 0 ASSESSMENT/PLAN: 1. Hypertension. It is, of course, possible that this patient's hypertension was brought on by her control medication but it is also possible that it was due to the chest pain and her anxiety from that. I do not have enough records to be able to tell whether she had hypertension prior to her chest pain or not. If she was on control for years and usually had a normal blood pressure but the blood pressure went up with chest pain, I would attribute it primarily to the chest pain and I think then it would be worthwhile to go back on her control and see what happens having her continue to monitor her blood pressure. If it is pretty clear that the blood pressure elevation was due to the control pills, I would say that there are really two choices. One would be to do without the control pills entirely and the second would be to go back on control pills and use an antihypertensive agent, perhaps Dyazide or a beta-león would be the first choice. The otheralternative, of course, is to try other control pills, perhaps using lower dose and find one that does not cause hypertension but still controls her painful menstrual cycles. I will leave it upto Dr. Moore to sort out these various possibilities. 2. The second issue is that of her chest discomfort. Her pain is definitely not of cardiac origin. It is far too brief and unpredictable and it is the wrong type of pain as well as being pleuritic. All of these characteristics as well as the lack of significant risk factors and extremely young age argue extraordinarily strongly against this being of cardiac origin. I don't think further testing is necessary. I did suggest that if she has further episodes similar to this that she should try using ibuprofen 600mg t.i.d. for about 10 days. It is, of course, also possible that this is all due to stress but it is not exactly clear what the stress or the cause of it might consist of. Thanks again for asking me to see Daphne today. While her blood pressure looks like it was mildly elevated, it certainly may have been due to the chest pain itself and I would think just trying to put her back on it would be the first step as outlined in my note above. The chest pain, I believe, isnot of any concern and I don't think further evaluation is indicated. Please do not hesitate to call if there are any other questions or if I can be of further assistance. Jerzy Nelson M.D. documented in this encounter Plan of Treatment Upcoming Encounters Date Type Department Care Team (Late st Contact Info) Description 01/25/2025 11:00 AM FOUNTAIN VENDING MECHANIC Office Visit [facility] [address] [place] [phone] Kenisha Rodriges PA-C [address] [place] [address] [place] [id number] documented as of this encounter Visit Diagnoses Not on filedocumented in this encounter Care Teams Coach Tour Driver Relationship Specialty Start Date End Date Nirav Moore MD PCP - General 11/27/07 02/21/12 Anup Thakur MD [address] [place] [phone] PCP - General production director 02/22/12 08/11/13 Leyda Ramires MD [address] [address] [place] [address] PCP - General production director 08/12/13 06/25/17 Loraine Taylor MD [address] [facility] [address] [place] [phone] PCP - General production director 06/26/17 01/18/19 [facility]- [address] [place] [address] PCP - General 01/19/19 02/01/24 Yazmin Burnham APRN CYLINDER PRESS OPERATOR HELPER [address] [place] [address] [place] [address] PCP - General 02/02/24 Ekaterina Craig PA-C [facility] [address] [place] [address] Assigned PCP 03/29/21 03/15/22 Satnam Pizarro MD [address] [place] [address] [id number] Assigned PCP 03/16/22 09/13/23 Yazmin Burnham APRN CYLINDER PRESS OPERATOR HELPER [address] [place] [address] [place] [address] Assigned PCP 09/14/23 Kenisha Rodriges PA-C [address] [place] [address] Assigned Surgical Provider 02/14/24 Kari Boykin [facility] [address] [place] [address] Pharmacist Pharmacist 05/05/24 Kari Boykin [facility] [address] [place] [address] Assigned MTM Pharmacist 05/16/24 documented as of this encounter
--- OUTSIDE RECORDS SUMMARY | 2024-09-21 01:55 | XMS_ITS | Encounter Summary ---
Author Organization [facility] Address [address] [place] [address] Care Team Providers Care Milk Runner Name Role Phone [facility]- Primary Care Provider Yazmin Burnham VESSEL WELDER BREWERY PUMPER Unavailable [phone] Yazmin Burnham VESSEL WELDER BREWERY PUMPER Primary Care Provider + Kenisha RodrigesC Unavailable [phone] Kari Boykin [facility] Unavailable Kari Boykin [facility] Unavailable [phone] Encounter Details Date Type Department Care Team (Late st Contact Info) Description 01/26/2024 MyC Medical Advice [facility] [address] [place] [phone] Cristal Duncan, FIELD CLINICAL ENGINEER Social History Tobacco Use Types Packs/Day Years [...] often do you attend chur ch or mandaeism services? More than 4 times per year 04/23/2021 Do you belong to any clubs o r organizations such as denominational groups, unions, fraternal or athletic groups, or [...] Answer Date Recorded PHQ-2 Score 2 07/28/2023 [facility] - Occupational Stress Questionnaire Answer Date [...] place to sleep or slept in a half-way (including now)? 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- [address] [place] [address] PCP - General 01/19/19 02/01/24 Yazmin Burnham APRN BREWERY PUMPER [address] [place] [address] [place] [address] PCP - General 02/02/24 Yazmin Burnham APRN BREWERY PUMPER [address] [place] [address] [place] [address] Assigned PCP 09/14/23 Kenisha Rodriges PA-C [address] [place] [address] Assigned Surgical Provider 02/14/24 Kari Boykin [facility] [address] [place] [address] Pharmacist Pharmacist 05/05/24 Kari Boykin [facility] [address] [place] [address] Assigned MTM Pharmacist 05/16/24 documented as of this encounter
--- OUTSIDE RECORDS SUMMARY | 2024-09-21 01:55 | XMS_ITS | Encounter Summary ---
Author Organization [place] Address [address] [place] [address] Care Team Providers Care Still Worker Helper Name Role Phone [facility]- Primary Care Provider Satnam Pizarro MD Unavailable [phone] Yazmin Burnham APRN BOAT DESIGNER Unavailable [phone] Yazmin Burnham APRN [facility] Primary Care Provider + Kenisha Rodriges PA-C Unavailable [phone] Kari Boykin [facility] Unavailable [phone] Kari Boykin [facility] Unavailable [phone] Encounter Details Date Type Department Care Team (Late st Contact Info) Description 08/12/2023 [facility] [address] [place] [address] Renetta [place] Social History Tobacco Use Types Packs/Day Years [...] How often do you attend chur or bahai services? More than 4 times per year 04/23/2021 Do you belong to any clubs o r organizations such as uatsdin groups, unions, fraternal or athletic groups, or [...] Answer Date Recorded PHQ-2 Score 2 07/28/2023 [facility] - Occupational [...] place to sleep or slept in a long term (including now)? 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 documented as of this encounter Plan of Treatment Upcoming Encounters Date Type Department Care Team (Late st Contact Info) Description 01/25/2025 11:00 AM EXTERNAL RELATIONS DIRECTOR Office Visit [facility] [address] [facility] [address] [place] [phone] Kenisha Rodriges PA-C [address] [place] [id number] documented as of this encounter Visit Diagnoses Not on filedocumented in this encounter Care Teams Still Worker Helper Relationship Specialty Start Date End Date [facility]- [address] [place] [address] PCP - General 01/19/19 02/01/24 Yazmin Burnham APRN BOAT DESIGNER [address] [facility] [place] [id number] PCP - General 02/02/24 [place] [address] [place] [address] Assigned PCP 03/16/22 09/13/23 Yazmin Burnham APRN BOAT DESIGNER [address] [facility] [place] [address] Assigned PCP 09/14/23 Kenisha Rodriges PA-C [address] [place] [id number] Assigned Surgical Provider 02/14/24 Kari Boykin [facility] [address] [place] [address] [id number] Pharmacist Pharmacist 05/05/24 Kari Boykin [facility] [address] [place] [address] [id number] Assigned MTM Pharmacist 05/16/24 documented as of this encounter
--- OUTSIDE RECORDS SUMMARY | 2024-09-21 01:55 | XMS_ITS | Encounter Summary ---
Author Organization [facility] Address [address] [place] [id number] Care Team Providers Care Affiliate Marketing Specialist Name Role Phone ChristinaJeramy valenciaalicia LEE GRAPHIC TECHNICIAN Unavailable [phone] Yazmin Burnham APRN GRAPHIC TECHNICIAN Primary Care Provider + Kenisha Rodriges PA-C Unavailable [phone] Kari Boykin [facility] Unavailable [phone] Kari Boykin [facility] Unavailable [phone] Encounter Details Date Type Department Care Team (Late st Contact Info) Description 07/29/2024 MyC Medical Advice [facility] [id number] [place] [id number] Cristal Duncan, COFFEE ROASTER HELPER Social History Tobacco Use Types Packs/Day Years [...] week 04/23/2021 How often do you attend [facility] or scientology services? More than 4 times per year 04/23/2021 Do you belong to any clubs o r organizations such as restorationist groups, unions, fraternal or athletic groups, or [...] Answer Date Recorded PHQ-2 Score 0 06/18/2024 [facility] of Occupat ional [facility] - Occupational Stress Questionnaire Answer Date [...] place to sleep or slept in a retirement (including now)? 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 documented as of this encounter Plan of Treatment Upcoming Encounters Date Type Department Care Team (Late st Contact Info) Description 01/25/2025 11:00 AM SIZE WORKER Office Visit [facility] [address] [facility] [address] [place] [phone] Kenisha Rodriges PA-C [address] [facility] [place] [id number] documented as of this encounter Visit Diagnoses Not on filedocumented in this encounter Care Teams Affiliate Marketing Specialist Relationship Specialty Start Date End Date Yazmin Burnham APRN GRAPHIC TECHNICIAN [address] [place] [address] [place] [address] PCP - General 02/02/24 Yazmin Burnham APRN GRAPHIC TECHNICIAN [address] [facility] [place] [address] Assigned PCP 09/14/23 Kenisha Rodriges PA-C [address] [place] [id number] Assigned Surgical Provider 02/14/24 Kari Boykin [facility] [address] [place] [id number] Pharmacist Pharmacist 05/05/24 Kari Boykin [facility] [address] [place], [place] 170[address] Assigned MTM Pharmacist 05/16/24 documented as of this encounter
--- OUTSIDE RECORDS SUMMARY | 2024-09-21 01:55 | XMS_ITS | Continuity of Care Document ---
Author Organization [facility], [id number] Address [address] [place] [address] Assessment No assessment recorded. Plan of Treatment Reminders Order Date Submit Date Provider Last Modified By Organization Details Last Modified Time Details Appointments None recorded. Lab None recorded. Referral None recorded. Procedures None recorded. Surgeries None recorded. Imaging None recorded. Medication Orders levonorges trel-ethin yl estradiol 0.1 mg-20 mcg tablet 2024 025 [facility], [address] [place], [address], 17:01:46 Patient TargetsNo targets recorded. Patient Instructions Encounter Date Encounter Id Patient Instructions Last Modified By Organization Details Last Modified Time 08/11/2024 [id number] - Encouraged breast self-awareness and recommend yearly mammogram. - Encouraged regular exercise. - Calcium and vitamin D intake discussed. - Patient to continue f/u with PCP for non ob/gyn physician health concerns. - Discussed appropriate breast cancer screening and mammogram intervals. - Counseled on perimenopause signs/symptoms. - Counseling on use of estrogen containing contraceptives provided, including the 03/999 risk of DVT or stroke. This risk may be higher in smokers. - Recommended colonoscopy per guidelines. [email or web address] Not available 08/11/2024 22:05:43 Reason for Referral None Reported. Results Created Date Observation Date Name Description Value Unit Range Abnormal Flag Note LastModifiedBy Organization Detail LastModifiedTime 08/18/1908/17/2024 MAMMO , scree eduar, tomos ynthe sis, bilat eral No observ ation record ed. [email or web address] [id number] _[email or web address] [address] [facility] [address], [place], [address], 08/18/2024 09:37:24 08/18/19 25 08/17/2024 lay willow r No observ ation record ed. [email or web address] [email or web address] [address] [facility] [address], [place], [address], 08/18/2024 09:38:05 Result Notes None recorded. Problems No Known Problems Procedures Surgical History Date Name Laterality Status Provider Name and Address Organization Details Recorded Time 025 Date of Last Mammogram completed Florentino Weiner [facility] 08/18/2024 09:37:43 024 Date of Last [place]oscopy [place] [address] [place] [address], [address] , [facility] 08/11/2024 16:59:44 023 Date of Last Pap Smear completed Daisy Alex [facility] 05/30/2022 16:06:04 022 Hip arthroscopy dx completed Olivia Jain (TERMED) [facility] 05/25/2021 09:37:44 022 Orthopedic [place] [address] [address], [address] , [facility] 05/25/2021 13:04:23 018 Caesarean [place] [address] [address], [address] , [facility] 05/25/2021 13:04:23 016 Caesarean [place] [address], [address] , [facility] 05/25/2021 13:04:23 013 Caesarean [place] [address], [place], [address] , [place] [facility] 05/25/2021 13:04:23 Remove intrauterine device [place] [address], [place], [address] , [place] [facility] 05/25/2021 13:04:23 Insert intrauterine [place] [address], [place], [address] , [place] [facility] 05/25/2021 13:04:23 tooth extraction [place] [address], [place], [address] , [place] [facility] 05/25/2021 13:04:23 operative procedure on wrist [place] [address], [place], [address] , [place] [facility] 05/25/2021 13:04:23 laparoscopy [place] [address] [address], [place], [address] , [place] [facility] 05/25/2021 13:04:23 [place] [address], [place], [address] , [place] [facility] 05/25/2021 13:04:23 [place]end[place] [address], [place], [address] , [place] [facility] 05/25/2021 13:04:23 hysterosalpingograph y [place] [address], [place], [address] , [place] [facility] 05/25/2021 13:04:23 [place] [address] [facility],[address], [place], [address] , [facility] 05/25/2021 13:04:23 [place]endectomy [place] [address] [facility],[address], [place], [address] , [facility] 05/25/2021 13:04:23 Imaging Results None recorded. Procedure Notes None recorded. Medical Equipment None Reported. Allergies No known drug allergies Medications Name Sig Start Date Stop Date Status Note LastModified by Organization Details LastModified Time glycopyrrol ate 1 mg tablet TAKE 1-2 TABLETS BY MOUTH TWICE DAILY NEEDED FOR HYPERHIDR OSIS active Not Available Not Available No t Available cyclobenzap rine 10 mg tablet TAKE 1 TABLET BY MOUTH 3 TIMES A DAY NEEDED FOR MUSCLE SPASMS 05/24 completed Not Available Not Available Not Available clonidine HCl 0.1 mg tablet TAKE 1 TABLET BY MOUTH TWICE A DAY NEEDED FOR ANXIETY 04/25 completed Not Available Not Available Not Available gabapentin 600 mg tablet 05/27 completed Not Available Not Available Not Available doxycycline hyclate 100 mg capsule TAKE 1 CAPSULE BY MOUTH TWICE A DAY FOR 7 DAYS 05/25 completed Not Available Not Available Not Available citalopram 40 mg tablet TAKE 1 TABLET BY MOUTH EVERYDAY AT BEDTIME 06/10 completed Not Available Not Available Not Available trazodone 50 mg tablet TAKE 1 TABLET BY MOUTH EVERY DAY AT BEDTIME NEEDED FOR SLEEP 05/27 completed Not Available Not Available Not Available levonorgest rel-ethinyl estradiol 0.1 mg-20 mcg tablet TAKE ONE TABLET BY MOUTH ONCE DAILY. TAKE ONLY ACTIVE TABLETS CONTINUOU SLY AND SKIP PLACEBO TABLETS 2024 active Not Available Not Available Not Avai lable sumatriptan 50 mg tablet TAKE 1-2 TABS AT ONSET OF HEADACHE MAY REPEAT IN 2HOURSIF NEEDED MAX 200MG/24H RS 06/09 completed Not Available Not Available Not Available penicillin V potassium 500 mg tablet TAKE 1 TABLET BY MOUTH TWICE A DAY 06/09 completed Not Available Not Available Not Available omeprazole 40 mg capsule,del ayed release 06/10 completed Not Available Not Available Not Available aspirin 81 mg tablet,ba yed release TAKE 1 TABLET BY MOUTH TWICE A DAY 05/25 completed Not Available Not Available Not Available tramadol 50 mg tablet TAKE 1 TABLET BY MOUTH EVERY 6 HOURS NEEDED 06/10 completed Not Available Not Available Not Available acetaminoph en 500 mg tablet TAKE 1 TABLET BY MOUTH EVERY 6 HOURS NEEDED FOR PAIN 05/25 completed Not Available Not Available Not Available butalbital- acetaminoph en-caffeine 50 mg-325 mg-40 mg tablet TAKE 1 TABLET BY MOUTH EVERY 6 HOURS NEEDED FOR HEADACHES 05/25 completed Not Available Not Available Not Available citalopram 20 mg tablet active Not Available Not Available Not Available benzonatate 100 mg capsule TAKE 1 CAPSULE (100 MG) BY MOUTH 3 TIMES DAILY NEEDED 05/25 completed Not Available Not Available Not Available cephalexin 500 mg capsule TAKE 1 CAPSULE BY MOUTH 4 TIMES DAILY FOR 7 DAYS. 05/27 completed Not Available Not Available Not Available gabapentin 300 mg capsule TAKE 1 CAPSULE BY MOUTH TWICE A DAY NEEDED FOR ANXIETY 06/09 completed Not Available Not Available Not Available codeine 10 mg-guaifene sin 100 mg/5 mL oral liquid TAKE 5-10 MLS BY MOUTH EVERY 4 HOURS NEEDED 05/25 completed Not Available Not Available Not Available gabapentin 100 mg capsule TAKE 1-3 CAP BY MOUTH DAILY NEEDED FOR ANXIETY 05/27 completed Not Available Not Available Not Available ondansetron 4 mg disintegrat ing tablet PLACE 1 TAB SUBLINGUA LLY EVERY 6 HOURS NEEDED FOR NAUSEA 05/25 completed Not Available Not Available Not Available fluticasone propionate 50 mcg/actuati on nasal spray,suspe nsion INSTILL 2 SPRAYS INTO BOTH NOSTRILS DAILY 05/25 completed Not Available Not Available Not Available naproxen 500 mg tablet TAKE 1 TAB BY MOUTH TWICE DAILY FOR 2 WEEKS 05/25 completed Not Available Not Available Not Available amoxicillin 875 mg-potassiu m clavulanate 125 mg tablet TAKE 1 TABLET BY MOUTH TWICE A DAY FOR 7 DAYS 06/10 completed Not Available Not Available Not Available oxycodone 5 mg tablet TAKE 1-2 TABS BY MOUTH EVERY 4-6 HOURS NEEDED 05/25 completed Not Available Not Available Not Available hydroxyzine pamoate 25 mg capsule TAKE 1-2 CAPS BY MOUTH EVERY 4-6 HOURS NEEDED FOR PAIN/MUSC LE SPASMS 05/25 completed Not Available Not Available Not Available cyclobenzap rine 5 mg tablet TAKE 1 TABLET BY MOUTH 3 TIMES A DAY NEEDED 06/10 completed Not Available Not Available Not Available Senna Plus 8.6 mg-50 mg tablet TAKE 2 TABS BY MOUTH DAILY NEEDED FOR CONSTIPAT ION 05/25 completed Not Available Not Available Not Available bupropion HCl XL 300 mg 24 hr tablet, extended release TAKE 1 TABLET BY MOUTH EVERY DAY IN THE MORNING active Not Available Not Available No t Available bupropion HCl XL 150 mg 24 hr tablet, extended release TAKE 1 TABLET BY MOUTH EVERY DAY IN THE MORNING active Not Available Not Available No t Available Linzess 145 mcg capsule 06/10 completed Not Available Not Available Not Available Linzess 290 mcg capsule active Not Available Not Available Not Available Zepbound 2.5 mg/0.5 mL subcutaneou s solution 2.5 mg as needed by sub-q route. 2024 active Not Available Not Available Not Avai lable Vitals Date Recorded Body height Body mass index (BMI) Body weight Systolic blood pressure Diastolic blood pressure Provider Name and Address Organization Details Last Updated DateTime 08/11/2024 167.64 cm 27.2 kg/m2 99357.39 g 122 mm[Hg] 78 mm[Hg] Ryder Bentley [place] - [facility] 16:49:33 Social History Question Answer Notes LastModified by Organizat ion Details LastModified Time Tobacco Smoking Status [place] [address] [facility],[address], [place], [address], [place] [facility] 05/25/2021 13:04:17 Do You Have An Advance Directive? No Information not available 08/11/2024 Is Blood Transfusion Acceptable In An Emergency? Yes [email or web address] Information not available 08/11/2024 What Is Your Level Of Caffeine Consumption? Moderate Caffeine *Status: Current Every Day *Qty: <100mg/day che Information not available 05/25/2021 What Type Of Diet Are You Following? REGULAR [email or web address] Information not available 08/11/2024 What Is The Highest Grade Or Level Of School You Have Completed Or The Highest Degree You Have Received? [id number] [email or web address] Information not available 08/11/2024 How Many Days Of Moderate To Strenuous Exercise, Like A Brisk Walk, Did You Do In The Last 7 Days? 3 [email or web address] Information not available 08/11/2024 How Many Times Per Week Do You Exercise? 3-4 Times Per Week Information not available 08/11/2024 Children's Names/ Raquel 11/06/2012, Nino 08/11/2015, Tyson 07/01/2017 Information not available 05/25/[address] [facility] Informat ion not available 05/25/2021 History Of Domestic Violence No Denies All Domestic Violence Information not available 11/01/2019 Spouse/Partners Name Danyel [email or web address] Information not available 05/25/2021 Spouses/Partners Name: Danyel Information not available 08/11/2024 Marital Status Informatio n not available 05/25/2021 What Is Your Relationship Status? Information not available 05/25/2021 Are You Sexually Active? Yes Information not available 05/25/2021 Are You Currently In School? No [email or web address] Information not available 08/11/2024 Sex: Female Functional Status Question Answer Note LastModified by Organizat ion Details LastModified Time How many times per week do you consume alcohol? Less than 1 time per week [email or web address] Information not available 08/11/2024 Do you use any illicit or recreational drugs? No Information not available 05/25/2021 What is your level of alcohol consumption? Occasional Information not available 05/25/2021 Are you currently employed? 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 Moderate Moderate Amount of Exercise (1-3 times weekly) Information not available 11/01/2019 Mental Status None recorded. Family History Relationship Description Onset Age of this Age Resolved Age Notes LastModified by Organization Details LastModified Time Maternal Grandmother Benign essential hypertension Hypert ension [email or web address] Not available 08/11/2024 16:26:14 Maternal Grandmother Old myocardial infarction Heart Attack [email or web address] Not available 08/11/2024 16:26:14 Maternal Grandmother Hyperlipidem ia High Choles terol / Hyperl ipidem ia [email or web address] Not available 08/11/2024 16:26:15 Mother Disorder of thyroid gland Thyroi d Diseas e [email or web address] Not available 11/01/2019 01:06:26 Paternal Grandmother Old myocardial infarction Heart Attack [email or web address] Not available 08/11/2024 16:26:15 Paternal Grandmother Hyperlipidem ia High Choles terol / Hyperl ipidem ia [email or web address] Not available 08/11/2024 16:26:15 Maternal Grandfather Family history of malignant neoplasm of gastrointest inal tract 60 Cancer Colon [email or web address] Not available 08/11/2024 16:26:15 Father Benign essential hypertension Hypert ension [email or web address] Not available 08/11/2024 16:26:15 Mother Benign essential hypertension Hypert ension Not available 08/11/2024 16:26:15 Paternal Grandfather Family history of diabetes mellitus Diabet es [email or web address] Not available 08/11/2024 16:26:15 Maternal Aunt Uterine leiomyoma [email or web address] Not available 2024 16:26:15 Notes:11/01/2019: *Relative: Aunt *Problem: Medical History Condition Response Neurology- Memory Loss/Dementia N Neurology- Stroke/TIA N Rheumatology- Fibromyalgia/Chronic Pain N Dermatology-Acne N Cancer- Genetic Screening N Endocrinology- Vitamin Deficiency N Endocrinology-Other N Urology-Other N Cardiology- Atrial fib/atrial flutter N ID- Usual childhood diseases- Chicken Po x Y Nephrology-Renal Disease N Rheumatology- Autoimmune Disease N Neurology- Seizures/Epilepsy N Cardiology- Heart Attack N Ortho-Fractures Y Reviewed with no changes N Neurology- Neuropathy N Endocrinology- Prolactinoma N Urology- Recurrent Urinary Tract Infecti ons N Pulmonary- Seasonal Allergies/Allergic R hinitis Y Psych- PMS/PMDD N Pulmonary-Other N Pulmonary- Lung Disease N Endocrinology- Glucose Intolerance/Insul in Resistance N Psych- Anxiety Disorder Y Hematology- Anemia N GI- Reflux/Ulcers N Cancer- Skin N GI- Irritable Bowel Syndrome Y Cardiology- Heart Disease N GI- Colon Polyps Y Ortho-Other Y Endocrinology- Osteopenia N Psych-Other N ID- MRSA N Endocrinology- Elevated Prolactin N ID-Other N Psych- Eating Disorder N Ortho- Arthritis Y Urology- Urinary Incontinence N Pulmonary- Asthma N Urology- Hematuria (Blood in Urine) N Pulmonary- Sleep Apnea N Neurology- Dementia N Vascular-Aneurysm N Urology- Interstitial Cystitis N Endocrinology- Hypothyroidism N Eyes-other N Neurology- Multiple Sclerosis N Rheumatology- Arthritis N GI- Hemorrhoids Y ID- Rheumatic Fever N Neurology-Other N Hematology- Blood Clotting Disorder/Fact or V Leiden N Ortho- Degenerative Joint Disease N Cardiology-Other N Hematology- Bleeding Disorder N Endocrinology- Osteoporosis N Psych- Depression N Hematology-Other N Dermatology-Eczema/Psoriasis N Dermatology-Other N ID- Tuberculosis/Positive PPD N Ortho-Chronic Back Pain Y ID- HIV N Cancer- Ovary N Cardiac- Mitral Valve Prolapse N Cardiology- High Cholesterol Y ID- Chicken Pox/Shingles Y Cardiology- Heart Arrhythmia N Urology- Kidney or Bladder Problems N Rheumatology- Restless Leg Syndrome N Psych- Mental Disorder N Endocrinology- Hyperthyroidism N Endocrinology- Thyroid Problems N Cancer- Breast N Psych- ADD N ID- Herpes N GI- Liver Disease/Hepatitis N Weight Management/Obesity Y Cancer- Colon N ENT- Hearing Loss N Cancer- Vulvar N Hematology- Blood Transfusion N Cancer- Vaginal N CURTAIN FRAMER- Recurrent Vaginitis N GI-Other N Neurology- Headaches/Migraines Y Endocrinology- Diabetes N Cancer- Cervical N No diseases or conditions N Pulmonary- COPD/Emphysema N GI- Vitamin Deficiency N Endocrinology- History of Gestational Di abetes N GI- Crohn's/Ulcerative Colitis N Psych- Bipolar Disease N Cardiology- High Blood Pressure N ENT- Seasonal Allergies/Allergic Rhiniti s Y Cancer- Lung N Cancer- Endometrial/Uterine N Eyes- Glaucoma N ENT-Other N Eyes- Vision Loss/Macular Degeneration N Rheumatology-Other N Cardiac- Aneurysm N Urology- Kidney Infection N Cardiology- Heart Murmur/Mitral Valve Pr olapse N Hematology- DVT/Pulmonary Embolism N Urology- Stones Y Cancer-Other N GI- Gallbladder Disease N Gynecological History Statement/Question Response History of Vulvar Dysplasia N HPV Test Negative Date of Last Mammogram 08/11/2024 Date of LMP 05/09/2020 History of Cervical Dysplasia N Do you have history of sexual trauma? N Date of Last Diabetes Screening 05/26/19 22 History of Infertility Y Sexually Active Y Date of Last Colonoscopy 01/23/2024 Age at first intercourse 17 Diethylstilbestrol (YOLANDA) exp osed daughters of women who took YOLANDA during ? N History of PCOS N History of Endometriosis Y History of Abnormal PAP N History of Recurrent Ovarian Cysts N Total lifetime partners less than 5 Post Menopausal Hormone Therapy User nev er Age at Menarche: 14 History of Sexually Transmitted Infectio n N HPV Vaccine not completed Current Control Method vasectomy History of Fibroids N Date of Last Pap Smear 05/27/2022 Date of Last Cholesterol Screening 05/25 History of Dysmenorrhea Y Obstetrics History GPAL:G 3 P 3 0 0 3 Type Value Multiple Births 0 Full Term 3 Induced 0 Spontaneous 0 Premature 0 Living 3 Ectopics 0 Total 3 Immunizations Vaccine Type Date Status Note Provider Nam e and Address Organization Details Recorded Time Tdap 8 completed Not Available [facility] 11/01/2019 01:07:47 Tdap 6 completed Not Available [facility] 11/01/2019 01:07:48 Tdap 3 completed Not Available [facility] 11/01/2019 01:07:49 Influenza, split virus, trivalent, PF 7 completed Not Available [facility] 11/01/2019 01:07:49 Influenza, split virus, trivalent, preservative 3 completed Sara Ramires (TERMED) null, [place] [facility] 05/27/2022 11:26:01 Influenza, split virus, quadrivalent, preservative 5 completed Sara Ramires ([place] [facility] 05/27/2022 11:26:01 Influenza, split virus, quadrivalent, preservative 6 completed Sara Ramires [place] [facility] 05/27/2022 11:26:00 Influenza, split virus, quadrivalent, preservative 2 completed Sara Ramires [place]TER[place] [facility] 05/27/2022 11:26:01 Influenza, MDCK, quadrivalent, PF 0 completed Sara Ramires (TERMED) [place], [place] - [facility] 05/27/2022 11:26:01 Influenza, MDCK, quadrivalent, PF 9 completed Sara Ramires (TERMED) [place] [facility] 05/27/2022 11:26:01 MMR 9 completed Sara Ramires (TERMED[place] [facility] 05/27/2022 11:26:01 MMR 9 completed Sara Ramires (TERMED) [place] [facility] 05/27/2022 11:26:01 COVID-19, mRNA, LNP-S, PF, 30 mcg/0.3 mL dose 1 completed Sara Ramires (TERMED) [place] - [facility] 05/27/2022 11:26:01 COVID-19 vaccine, vector-nr, rS-Ad26, PF, 0.5 mL 1 completed Sara Ramires (TERMED[place] [facility] 05/27/2022 11:26:01 Influenza, split virus, trivalent, preservative 8 completed Sara Ramires [place]TERMED[place] [facility] 05/27/2022 11:26:01 Influenza, split virus, quadrivalent, PF 1 completed Sara Ramires (TERMED[place] [facility] 05/27/2022 11:26:01 Influenza, split virus, quadrivalent, PF 3 completed Lorin Mohamed (TERMED[place] [facility] 06/11/2023 10:03:17 Past Encounters Encounter ID Performer Location Encounter Start Date Encounter Closed Date Diagnosis/Indication Diagnosis SNOMED-CT Code Diagnosis ICD10 Code Diagnosis Note [id number] MARTINEZ MCKENNA MD [id number] [facility] [address] [facility] [address] [place] [phone] 08/11/2024 16:36:36 08/12/2024 15:44:51 Contraception care management 417637238 Z30.9 Doing well with continuous OCPs to control periods. Will continue. Gynecologi c examination 86211144 Z01.419 Anxiety 43046081 F41.9 Reviewed positive PHQ-2 & NGHIA-7. Patient denies suicidal and homicidal ideations. She reports she feels she is doing well and will continue f/u with her psychiatry [facility]. Health Concerns Section Related Observation LastModified by Organization Detai ls LastModified Time None Recorded Concern Status LastModified by Organization Details LastModified Time None Recorded Payers Encounter Date Sequence Insurance Name Policy Number Policy Nagel Covered Member ID Nagel Member ID Guarantor Name 08/11/2024 1 [facility] [id number] Yen Milan [id number] Yen Milan Notes Date Note Type Note Provider Name and Address Organization Details Recorded Time 08/11/2024 text/html Annual Premenopausal ([facility])Reported bypatient.Patient Relationship To Practice:francisco li patient Current Medical History:active medical problems stable; feels mental health is well controlled at this time despite PHQ-9 and NGHIA-7 scores. Sees psychiatry [facility] and will continue to follow there. Menstrual History:takes OCPs continuously Contraceptive Method:satisfied: vasectomy; and OCPs (period control) Sexually Active:Yes: Health/Prevention:B reast Self Exam: yes Mammogram:up-to-valerie e Pap Smear +/- HPV Cotesting:up-to-valerie e Thyroid/Lipid Screening:due Colonoscopy:up-to-d ate Patient has:Primary Care Physician: yesNotes:Plans cholesterol with PCP. Sees [facility] for mental health - made a couple changes to meds over the last year. She reports doing well and will continue f[place] [address] [facility],[address], [place], [address], [place] [facility] 08/11/2024 22:06:03 OBGyn Episode No OBEpisode recorded.
--- OUTSIDE RECORDS SUMMARY | 2024-09-21 01:55 | XMS_ITS | Encounter Summary ---
Author Organization [place] Address [address] [place] [id number] Care Team Providers Care Kosher Dietary Service Supervisor Name Role Phone [facility]- Primary Care Provider Ekaterina Craig PA-C Unavailable Satnam Pizarro MD Unavailable [phone] Yazmin Burnham APRN POND TENDER Unavailable [phone] Yazmin Burnham APRN POND TENDER Primary Care Provider + Kenisha Rodriges PA-C Unavailable [phone] Kari Boykin [facility] Unavailable [phone] Kari Boykin [facility] Unavailable [phone] Encounter Details Date Type Department Care Team (Late st Contact Info) Description 10/25/2021 MyC Medical Advice [facility] [address] [place] [address] Sol Reynaga, NATHAN Social History Tobacco Use Types Packs/Day Years [...] How often do you attend chur or congregation services? More than 4 times per year 04/23/2021 Do you belong to any clubs o r organizations such as hinduism groups, unions, fraternal or athletic groups, or [...] and heating? Not hard at all 04/23/2021 [facility] Occupat ional [facility] - Occupational Stress [...] place to sleep or slept in a [place] (including now)? 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 Not on file Not on file documented as of this encounter Plan of Treatment Upcoming Encounters Date Type Department Care Team (Late st Contact Info) Description 01/25/2025 11:00 AM INDUSTRIAL GAS SERVICER HELPER Office Visit [facility] [place] [id number] [facility] [address] [phone] Kenisha Rodriges PA-C [address] [facility] [place] [id number] documented as of this encounter Visit Diagnoses Not on filedocumented in this encounter Care Teams Kosher Dietary Service Supervisor Relationship Specialty Start Date End Date [facility]- [address] [place] [address] PCP - General 01/19/19 02/01/24 Yazmin Burnham APRN POND TENDER [address] [facility] [place] [address] PCP - General 02/02/24 Ekaterina Craig PA-C [facility] [address] [place] [address] Assigned PCP 03/29/21 03/15/22 Satnam Pizarro MD [address] [place], [place] 880662 Assigned PCP 03/16/22 09/13/23 Yazmin Burnham APRN POND TENDER [address] [facility] [place] [address] Assigned PCP 09/14/23 Kenisha Rodriges PA-C [address] [place] [address] Assigned Surgical Provider 02/14/24 Kari Boykin [facility] [address] [place] [address] [phone] Pharmacist Pharmacist 05/05/24 Kari Boykin [facility] [address] [place], [place] 314415 Assigned MTM Pharmacist 05/16/24 documented as of this encounter
--- OUTSIDE RECORDS SUMMARY | 2024-09-21 01:55 | XMS_ITS | Encounter Summary ---
Author Organization [place] Address [address] [place] [address] Care Team Providers Care Cut Off Saw Set Up Operator Name Role Phone [facility]- Primary Care Provider Yazmin Burnham ARCHITECTURE INSTRUCTOR GALLERY HOST Unavailable [phone] Yazmin Burnham ARCHITECTURE INSTRUCTOR GALLERY HOST Primary Care Provider + Kenisha Rodriges PA-C Unavailable Kari Boykin [facility] Unavailable [phone] Kari Boykin [facility] Unavailable [phone] Encounter Details Date Type Department Care Team (Late st Contact Info) Description 09/16/2023 [facility] [address] [place] [phone] [facility] Social History Tobacco Use Types Packs/Day Years [...] often do you attend chur ch or muslim services? 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 Not on file documented as of this encounter Plan of Treatment Upcoming Encounters Date Type Department Care Team (Late st Contact Info) Description 01/25/2025 11:00 AM RETAIL MANAGER Office Visit [facility] [place] [address] [facility] [address] [place] [phone] Kenisha Rodriges PA-C [address] [place] [id number] documented as of this encounter Visit Diagnoses Not on filedocumented in this encounter Care Teams Cut Off Saw Set Up Operator Relationship Specialty Start Date End Date [facility]- [address] [place] [address] PCP - General 01/19/19 02/01/24 Yazmin Burnham APRN GALLERY HOST [address] [place] [address] [place] [address] PCP - General 02/02/24 Yazmin Burnham APRN GALLERY HOST [address] [place] [address] [place] [address] Assigned PCP 09/14/23 Kenisha Rodriges PA-C [address] [place] [address] Assigned Surgical Provider 02/14/24 Kari Boykin [facility] [address] [place] [address] Pharmacist Pharmacist 05/05/24 Kari Boykin [facility] [address] [place] [address] [phone] Assigned MTM Pharmacist 05/16/24 documented as of this encounter
--- OUTSIDE RECORDS SUMMARY | 2024-09-21 01:55 | XMS_ITS | Encounter Summary ---
Author Organization [place] Address [address] [place] [address] Care Team Providers Care Bartenders Name Role Phone [facility]- Primary Care Provider Yazmin Burnham VETERINARY TECHNICIAN ASSISTANT BUSINESS INTELLIGENCE DEVELOPER Unavailable Yazmin Burnham VETERINARY TECHNICIAN ASSISTANT BUSINESS INTELLIGENCE DEVELOPER Primary Care Provider + Kenisha RodrigesC Unavailable Kari Boykin [facility] Unavailable [phone] Kari Boykin [facility] Unavailable [phone] Encounter Details Date Type Department Care Team (Late st Contact Info) Description 01/30/2024 MyC Medical Advice [facility] [address] [place] [phone] Cristal Duncan, BUSINESS SYSTEMS ADVISOR Social History Tobacco Use Types Packs/Day Years [...] often do you attend chur ch or bahai services? More than 4 times per year 04/23/2021 Do you belong to any clubs o r organizations such as synagogue groups, unions, fraternal or athletic groups, or [...] Score 2 07/28/2023 [facility] - Occupational Stress Questionnaire Answer Date Recorded [...] place to sleep or slept in a [facility] (including now)? 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 file documented as of this encounter Plan of Treatment Upcoming Encounters Date Type Department Care Team (Late st Contact Info) Description 01/25/2025 11:00 AM BEADING MACHINE OPERATOR Office Visit [facility] [place] [address] [facility] [address] [phone] Kenisha Rodriges PA-C [address] [id number] documented as of this encounter Visit Diagnoses Not on filedocumented in this encounter Care Teams Bartenders Relationship Specialty Start Date End Date [facility]- [address] [place] [address] PCP - General 01/19/19 02/01/24 Yazmin Burnham APRN BUSINESS INTELLIGENCE DEVELOPER [address] [place] [address] [place] [address] PCP - General 02/02/24 Yazmin Burnham APRN BUSINESS INTELLIGENCE DEVELOPER [address] [place] [address] [place] [address] Assigned PCP 09/14/23 Kenisha Rodriges PA-C [address] [place] [address] Assigned Surgical Provider 02/14/24 Kari Boykin [facility] [address] [place] [id number] Pharmacist Pharmacist 05/05/24 Kari Boykin [facility] [address] [place] [phone] Assigned MTM Pharmacist 05/16/24 documented as of this encounter
--- OUTSIDE RECORDS SUMMARY | 2024-09-21 01:55 | XMS_ITS | Data Portability ---
Author Organization [employer], [id number] Address [address] [address] Assessment No assessment recorded. Plan of Treatment Reminders Order Date Submit Date Provider Last Modified By Organization Details Last Modified Time Details Appointments None recorded. Lab lipid panel, serum [address] [facility], [address] [place] [address], [address], [place], [address], 4 12:24:53 glucose, QN [mass/volu me], blood [address] [facility], [address] [place] [address], [address], [place], [address], 4 12:24:54 hemoglobin A1c, QN, blood [address] [facility], [address] [place] [address], [address], [place], [address], 4 17:30:01 TSH, serum or plasma [address] [facility], [address] [place] [address], [address], [place], [address], 3 19:29:40 Pap test, slide(s), cervical [address] [facility], [address] [place] [address], [address], [place], [address], 3 15:36:25 hemoglobin (Hb), fingerstic k, blood 2020 021 [id number] , [address], [address], [place], [address], 1 12:22:19 Referral None recorded. Procedures None recorded. Surgeries None recorded. Imaging None recorded. Medication Orders levonorges trel-ethin yl estradiol 0.1 mg-20 mcg tablet 2024 025 [facility], [address] [place], [address], 5 17:01:46 levonorges trel-ethin yl estradiol 0.1 mg-20 mcg tablet 2023 024 [facility], [address] [place], [address], 4 10:38:29 levonorges trel-ethin yl estradiol 0.1 mg-20 mcg tablet 2022 023 [facility], [address] [place], [address], 3 11:43:03 Larissia 0.1 mg-20 mcg tablet 2021 022 [facility], [address] [place], [address], 2 10:00:39 Larissia 0.1 mg-20 mcg tablet 2020 021 [facility], [address] [place], [address], 1 12:22:25 Patient TargetsNo targets recorded. Patient Instructions Encounter Date Encounter Id Patient Instructions Last Modified By Organization Details Last Modified Time 05/24/2020 [id number] - Encouraged breast self-awareness and monthly breast exams. - Calcium and vitamin D intake discussed. - Patient will return to clinic for fasting labs - cholesterol and glucose. - Counseling on use of estrogen containing contraceptives provided, including the 03/999 risk of DVT or stroke. This risk may be higher in smokers. - Discussed appropriate breast cancer screening and mammogram intervals. - Mood symptoms discussed-resource s offered and phone numbers given to patient for counseling services/psychothe rapy, precautions regarding depressed mood also discussed and patient is aware of emergency resources. Continue f/u with psychiatrist. Denies SI/HI. - Non-gynecologic health concerns managed by primary care provider. [email or web address] Not available 05/25/2020 22:11:46 05/25/2021 [id number] - Encouraged breast self-awareness and monthly breast exams. - Counseling on use of estrogen containing contraceptives provided, including the 03/999 risk of DVT or stroke. This risk may be higher in smokers. - Discussed appropriate breast cancer screening and mammogram intervals. - Mood symptoms discussed-patient will continue to f/u with psychiatry. States she is doing well. - Non-gynecologic health concerns managed by primary care provider. - Discussed starting mammograms age 41. [email or web address] Not available 05/25/2021 13:09:38 05/27/2022 [id number] - Encouraged breast self-awareness and recommend yearly mammogram. - Encouraged regular exercise. - Calcium and vitamin D intake discussed. - Discussed appropriate breast cancer screening and mammogram intervals. - Counseled on perimenopause signs/symptoms. - Discussed weight loss - Discussed mood symptoms, patient to continue f/u with her psychiatrist. - Counseling on use of estrogen containing contraceptives provided, including the 03/999 risk of DVT or stroke. This risk may be higher in smokers. - Discussed GI issues. This is not new for her. Has seen GI in the past and diagnosed with IBS. Is trying fiber and probiotic (started last week). If not helpful, will return to GI to discuss again. [email or web address] Not available 05/28/2022 12:55:14 06/11/2023 [id number] - Encouraged breast self-awareness and recommend yearly mammogram. - Encouraged regular exercise. - Discussed appropriate breast cancer screening and mammogram intervals. - Counseled on perimenopause signs/symptoms. 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 - Counseling on use of estrogen containing contraceptives provided, including the 03/999 risk of DVT or stroke. This risk may be higher in smokers. - Discussed recent colonoscopy with large polyp; repeat planned in 1 year. che Not available 06/11/2023 13:40:25 08/11/2024 [id number] - Encouraged breast self-awareness and recommend yearly mammogram. - Encouraged regular exercise. - Calcium and vitamin D intake discussed. - Patient to continue f/u with PCP for non occupational physician health concerns. - Discussed appropriate breast cancer screening and mammogram intervals. - Counseled on perimenopause signs/symptoms. - Counseling on use of estrogen containing contraceptives provided, including the 03/999 risk of DVT or stroke. This risk may be higher in smokers. - Recommended colonoscopy per guidelines. che Not available 08/11/2024 22:05:43 Reason for Referral None Reported. Results Created Date Observation Date Name Description Value Unit Range Abnormal Flag Note LastModifiedBy Organization Detail LastModifiedTime 05/25/1905/24/2020 hemog lobin (Hb), finge rstic k, blood fingerstick hemoglobin 12.3 g/dL 12.0-1 5.0 Not Available [id number] [facility] [address] [facility] [address], [place], [address], 05/24/2020 12:03:57 05/26/19 21 05/25/2020 lipid panel , blood specimen type Not Available [facility] [address] [place], [address], 05/25/2020 16:02:57 05/26/19 21 05/25/2020 lipid panel , blood cholesterol 194 mg/dL <200 Not Available [facility] [address] [place], [address], 05/25/2020 16:02:57 05/26/19 21 05/25/2020 lipid panel , blood triglyceride s profile 114 mg/dL <150 Not Available [facility] [address] [place], [address], 05/25/2020 16:02:57 05/26/19 21 05/25/2020 lipid panel , blood LDL chol, calc 118 mg/dL <100 high Not Available [facility] [address] [place], [address], 05/25/2020 16:02:57 05/26/19 21 05/25/2020 lipid panel , blood HDL cholesterol 53 mg/dL >40 Not Available [facility] [address] [place], [address], 05/25/2020 16:02:57 05/26/19 21 05/25/2020 lipid panel , blood chol/HDL ratio 3.7 0.0-4. 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 Pap tests are prima rily effec tive for the diagn osis/ preve ntion of squam ous cell carci noma, not adeno carci noma or other cance rs. BKR LAB AP CHEMISTRY INSTRUCTOR ADEQU ACY: Satis facto ry for evalu ation , endoc ervic al/tr ansfo rmati on zone compo nent prese nt Path repor t.rel evant Hx Spec: none BKR LAB AP LMP: na BKR LAB AP HPV REFLE X: Yes regar dless of resul t BKR LAB AP PREVI OUS ABNOR MAL: No BKR LAB AP PREVI OUS ABNL DX: lps 5-201 8 neg/H PV-ne g Path repor t.com ments Imp Spec: The techn ical compo nent of this testi ng was compl eted at [facility] Not Available [address], [place], [address], 05/30/2022 15:36:25 05/28/19 23 05/27/2022 HPV HIGH RISK TYPES DNA CERVI VANIA other HR HPV Negati ve negati ve Not Available [address], [place], [address], 05/30/2022 15:38:22 05/28/19 23 05/27/2022 HPV HIGH RISK TYPES DNA CERVI VANIA HPV16 DNA Negati ve negati ve Not Available [address], [place], [address], 05/30/2022 15:38:22 05/28/19 23 05/27/2022 HPV HIGH RISK TYPES DNA CERVI VANIA HPV18 DNA Negati ve negati ve Not Available [address], [place], [address], 05/30/2022 15:38:22 05/28/19 23 05/27/2022 HPV HIGH RISK TYPES DNA CERVI VANIA final diagnosis See note below This patie nt's sampl e is negat rosemarie for HPV DNA. This test was devel oped and its perfo rmanc e kathi cteri stics deter mined by [facility] . It has not been clear ed or appro aria by the FDA. The labor atory is regul ated under CLIA as quali fied to perfo rm high- compl exity testi ng. This test is used for clini vania purpo ses. It shoul d not be regar ded as inves tigat ional or for resea rch. METHO DOLOG Y: The Karen Marin 4800 syste m uses autom ated extra ction , simul taneo us ampli ficat ion of HPV (L1 regio n) and beta- globi n, follo wed by real time detec tion of fluor escen t label ed HPV and beta globi n using speci fic oligo nucle otide probe s. The test speci fical ly ident ifies types HPV 16 DNA and HPV 18 DNA while concu rrent ly detec ting the rest of the high risk types (31, 33, 35, 39, 45, 51, 52, 56, 58, 59, 66 or 68). COMME NTS: This test is not inten ded for use as a scree eduar devic e for woman under age 30 with renate l cervi vania cytol ogy. Resul ts shoul d be corre lated with cytol ogic and histo logic findi ngs. Close clini vania follo wup is recom tricia d. Not Available [facility] [address], [place], [address], 05/30/2022 15:38:22 06/11/19 24 06/11/2023 HEMOG LOBIN A1C hemoglobin A1C 5.3 % <5.7 Renate l <5.7% Predi abete s 5.7-6 .4% Diabe elfego 6.5% or highe r Note: Adopt ed from ADA conse nsus guide lines . Not Available [facility] [address], [place], [address], 06/11/2023 17:30:01 06/11/19 24 06/11/2023 LIPID PANEL cholesterol 226 mg/dL <200 high Not Available [address], [place], [address], 06/12/2023 12:24:53 06/11/19 24 06/11/2023 LIPID PANEL triglyceride s 140 mg/dL <150 Not Available [address], [place], [address], 06/12/2023 12:24:53 06/11/19 24 06/11/2023 LIPID PANEL direct measure HDL 55 mg/dL >=50 Not Available [address], [place], [address], 06/12/2023 12:24:53 06/11/19 24 06/11/2023 LIPID PANEL LDL cholesterol calculated 143 mg/dL <=100 high Not Available [address], [place], [address], 06/12/2023 12:24:53 06/11/19 24 06/11/2023 LIPID PANEL non HDL cholesterol 171 mg/dL <130 high Not Available [address], [place], [address], 06/12/2023 12:24:53 06/11/19 24 06/11/2023 LIPID PANEL patient fasting > 8hrs? Yes Annalee stero l Vanesa able: <200 mg/dL Trigl yceri jose Renate l: Less than 150 mg/dL Borde rline High: 150-1 99 mg/dL High: 200-4 99 mg/dL Very High: Great er than or equal to 500 mg/dL Direc t Measu re HDL Femal e: Great er than or equal to 50 mg/dL Male: Great er than or equal to 40 mg/dL LDL Annalee stero l Vanesa able: <100m g/dL Above Vanesa able: 100-1 29 mg/dL Borde rline High: 130-1 59 mg/dL High: 160-1 89 mg/dL Very High: >= 190 mg/dL Non HDL Annalee stero l Vanesa able: 130 mg/dL Above Vanesa able: 130-1 59 mg/dL Borde rline High: 160-1 89 mg/dL High: 190-2 19 mg/dL Very High: Great er than or equal to 220 mg/dL Not Available [address], [place], [address], 06/12/2023 12:24:53 06/11/19 24 06/11/2023 GLUCO SE SERUM OR PLASM A glucose 81 mg/dL 70-99 Not Available [address], [place], [address], 06/12/2023 12:24:54 06/11/19 24 06/11/2023 GLUCO SE SERUM OR PLASM A patient fasting > 8hrs? Yes Not Available [address], [place], [address], 06/12/2023 12:24:54 06/01/19 23 05/31/2022 MAMMO , scree eduar, tomos ynthe sis, bilat eral No observ ation record ed. [email or web address] [id number], [address], 06/03/2022 13:41:31 06/01/19 23 05/31/2022 lay lette r No observ ation record ed. FRIDA [id number] [address], [place], [address], 06/03/2022 19:02:28 06/11/19 23 06/10/2022 US, nusrat t, ysabel teral , limit ed No observ ation record ed. [email or web address] [address], [place], [address], 06/10/2022 12:44:12 06/11/19 24 06/11/2023 MAMMO , scree eduar, tomos ynthe sis, bilat eral No observ ation record ed. [email or web address] [id number], [place], [address], 06/12/2023 08:50:10 06/11/19 24 06/11/2023 lay lette r No observ ation record ed. FRIDA [id number], [place], [address], 06/12/2023 10:29:36 08/18/19 25 08/17/2024 MAMMO , scree eduar, tomos ynthe sis, bilat eral No observ ation record ed. [email or web address] [id number], [place], [address], 08/18/2024 09:37:24 08/18/19 25 08/17/2024 lay lette r No observ ation record ed. [email or web address] [id number], [place], [address], 08/18/2024 09:38:05 Result Notes Documentation Provider Name and Address Organization Details Recorded Time Mammo, Screening, Tomosynthesis, Bilateral : Mammogram Screening Mammogram Type: 3D Bilateral Radiological Classification: Bi-Rads 2 - Benign Findings ACR Category: b-Scattered areas of fibroglandular density Followup planned: Screening mammogram one year Florentino mejia, [place] - [facility] 06/12/2023 08:50:10 Mammo, Screening, Tomosynthesis, Bilateral : Mammogram Screening Mammogram Type: 3D Bilateral Radiological Classification: Bi-Rads 2 - Benign Findings ACR Category: b-Scattered areas of fibroglandular density Followup planned: Screening mammogram one year Florentino mejia, [place] - [facility] 08/18/2024 09:37:24 Problems No Known Problems Procedures Surgical History Date Name Laterality Status Provider Name and Address Organization Details Recorded Time 025 Date of Last Mammogram completed Florentino Weiner [facility] 08/18/2024 09:37:43 024 Date of Last [place]oscopy [place] [address], [place], [address] , [facility] 08/11/2024 16:59:44 023 Date of Last Pap Smear completed Daisy Alex [facility] 05/30/2022 16:06:04 022 Hip arthroscopy dx completed Olivia Jain (TERMED) [facility] 05/25/2021 09:37:44 022 Orthopedic [place] [address], [place], [address] , [facility] 05/25/2021 13:04:23 018 Caesarean [place] [address], [place], [address] , [facility] [employer] 05/25/2021 13:04:23 016 Caesarean [place] [address], [place], [address] , [facility] 05/25/2021 13:04:23 013 Caesarean [place] [address], [place], [address] , [place] [facility] 05/25/2021 13:04:23 Remove intrauterine [place] [address] [facility],[address], [place], [address] , [place] [facility] 05/25/2021 13:04:23 Insert intrauterine [place] [address], [place], [address] , [place] [facility] 05/25/2021 13:04:23 tooth extraction [place] [address] [facility],[address], [place], [address] , [place] [facility] 05/25/2021 13:04:23 operative procedure on wrist [place] [address] [address], [place], [address] , [place] [facility] 05/25/2021 13:04:23 laparoscopy [place] [address], [place], [address] , [place] [facility] 05/25/2021 13:04:23 [place] [address], [place], [address] , [place] [facility] 05/25/2021 13:04:23 Appendectomy [place] [address], [place], [address] , [place] [facility] 05/25/2021 13:04:23 hysterosalpingograph y [place] [address], [place], [address] , [place] [facility] 05/25/2021 13:04:23 [place]aroscopy [place] [address], [place], [address] , [place] [facility] 05/25/2021 13:04:23 [place] [address] [facility],[address], [place], [address] , [place] [facility] 05/25/2021 13:04:23 Imaging Results None recorded. Procedure [...] Not Avai lable Vitals Date Recorded Body weight Body mass index (BMI) Body height Systolic blood pressure Diastolic blood pressure Provider Name and Address Organization Details Last Updated DateTime 05/24/2020 01688.47 g 32.3 kg/m2 167.64 cm 108 mm[Hg] 70 mm[Hg] Olivia Jain (TERMED) [facility] 1 12:03:05 Date Recorded Body height Body mass index (BMI) Body weight Systolic blood pressure Diastolic blood pressure Provider Name and Address Organization Details Last Updated DateTime 05/25/2021 167.64 cm 28.9 kg/m2 16246.03 g 126 mm[Hg] 82 mm[Hg] Olivia Jain (TERMED) [facility] 2 10:18:45 Date Recorded Body weight Body mass index (BMI) Body height Systolic blood pressure Diastolic blood pressure Provider Name and Address Organization Details Last Updated DateTime 05/27/2022 09154.21 g 33.6 kg/m2 167.64 cm 110 mm[Hg] 65 mm[Hg] Sara Ramires (TERMED) [facility] 3 11:31:45 Date Recorded Body weight Body mass index (BMI) Body height Systolic blood pressure Diastolic blood pressure Provider Name and Address Organization Details Last Updated DateTime 06/11/2023 73514.81 g 33.7 kg/m2 167.64 cm 125 mm[Hg] 82 mm[Hg] Lorin Earl (TERMED) [place] - [facility] 4 10:06:19 Date Recorded Body height Body mass index (BMI) Body weight Systolic blood pressure Diastolic blood pressure Provider Name and Address Organization Details Last Updated DateTime 08/11/2024 167.64 cm 27.2 kg/m2 53538.39 g 122 mm[Hg] 78 mm[Hg] Ryder Bentley [place] - [facility] 5 16:49:33 Social History Question Answer Notes LastModified by Organizat ion Details LastModified Time Tobacco Smoking Status [place] [address] [facility], [place], [address], [facility] - [facility] 05/25/2021 13:04:17 Do You Have An Advance Directive? No Information not available 08/11/2024 Is Blood Transfusion Acceptable In An Emergency? Yes [email or web address] Information not available 08/11/2024 What Is Your Level Of Caffeine Consumption? Moderate Caffeine *Status: Current Every Day *Qty: <100mg/day Information not available 05/25/2021 What Type Of Diet Are You Following? REGULAR [email or web address] Information not available 08/11/2024 What Is The Highest Grade Or Level Of School You Have Completed Or The Highest Degree You Have Received? [id number] [email or web address] Information not available 08/11/2024 How Many Days Of Moderate To Strenuous Exercise, Like A Brisk Walk, Did You Do In The Last 7 Days? 3 [email or web address] Information not available 08/11/2024 How Many Times Per Week Do You Exercise? 3-4 Times Per Week [email or web address] Information not available 08/11/2024 Children's Names/ Raquel 11/06/2012, Nino 08/11/2015, Tyson 07/01/2017 Information not available 05/25/2021 Country Of [facility] Informat ion not available 05/25/2021 History Of Domestic Violence No Denies All Domestic Violence Information not available 11/01/2019 Spouse/Partners Name Danyel bolton Information not available 05/25/2021 Spouses/Partners Name: Danyel [email or web address] Information not available 08/11/2024 Marital Status [email or web address] Informatio n not available 05/25/2021 What Is Your Relationship Status? Information not available 05/25/2021 Are You Sexually Active? Yes Information not available 05/25/2021 Are You Currently In School? No [email or web address] Information not available 08/11/2024 Sex: Female Functional Status Question Answer Note LastModified by Organizat ion Details LastModified Time How many times per week do you consume alcohol? Less than 1 time per week Information not available 08/11/2024 Do you use any illicit or recreational drugs? No Information not available 05/25/2021 What is your level of alcohol consumption? Occasional Information not available 05/25/2021 Are you currently employed? 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 Moderate Moderate Amount of Exercise (1-3 times weekly) Information not available 11/01/2019 Mental Status None recorded. Family History Relationship Description Onset Age of this Age Resolved Age Notes LastModified by Organization Details LastModified Time Maternal Grandmother Benign essential hypertension Hypert ension [email or web address] Not available 08/11/2024 16:26:14 Maternal Grandmother Old myocardial infarction Heart Attack [email or web address] Not available 08/11/2024 16:26:14 Maternal Grandmother Hyperlipidem ia High Choles terol / Hyperl ipidem ia [email or web address] Not available 08/11/2024 16:26:15 Mother Disorder of thyroid gland Thyroi d Diseas e [email or web address] Not available 11/01/2019 01:06:26 Paternal Grandmother Old myocardial infarction Heart Attack [email or web address] Not available 08/11/2024 16:26:15 Paternal Grandmother Hyperlipidem ia High Choles terol / Hyperl ipidem ia [email or web address] Not available 08/11/2024 16:26:15 Maternal Grandfather Family history of malignant neoplasm of gastrointest inal tract 60 Cancer Colon [email or web address] Not available 08/11/2024 16:26:15 Father Benign essential hypertension Hypert ension [email or web address] Not available 08/11/2024 16:26:15 Mother Benign essential hypertension Hypert ension [email or web address] Not available 08/11/2024 16:26:15 Paternal Grandfather Family history of diabetes mellitus Diabet es [email or web address] Not available 08/11/2024 16:26:15 Maternal Aunt Uterine leiomyoma [email or web address] Not available 2024 16:26:15 Notes:11/01/2019: *Relative: Aunt *Problem: Medical History Condition Response Neurology- Memory Loss/Dementia N Neurology- Stroke/TIA N Rheumatology- Fibromyalgia/Chronic Pain N Dermatology-Acne N Cancer- Genetic Screening N Endocrinology- Vitamin Deficiency N Endocrinology-Other N Urology-Other N Cardiology- Atrial fib/atrial flutter N ID- Usual childhood diseases- Chicken Po x Y Rheumatology- Autoimmune Disease N Nephrology-Renal Disease N Neurology- Seizures/Epilepsy N Cardiology- Heart [...] Osteoporosis N Psych- Depression N Hematology-Other N Dermatology-Other N Dermatology-Eczema/Psoriasis N ID- Tuberculosis/Positive PPD N Ortho-Chronic Back [...] Hematology- Blood Transfusion N Cancer- Vaginal N CHEMISTRY INSTRUCTOR- Recurrent Vaginitis N GI-Other N Neurology- Headaches/Migraines [...] 01/23/2024 Age at first intercourse 16 Diethylstilbestrol (JOSE) exp osed daughters of women who took JOSE during ? N History of PCOS N [...] Recorded Time Tdap 8 completed Not Available [facility] 11/01/2019 01:07:47 Tdap 6 completed Not Available [facility] 11/01/2019 01:07:48 Tdap 3 completed Not Available [facility] 11/01/2019 01:07:49 Influenza, split virus, trivalent, PF 7 completed Not Available [facility] 11/01/2019 01:07:49 Influenza, split virus, trivalent, preservative 3 completed Sara Ramires (TERMED) null, [place] [facility] 05/27/2022 11:26:01 Influenza, split virus, quadrivalent, preservative 5 completed Saar Ramires [place] [facility] 05/27/2022 11:26:01 Influenza, split virus, quadrivalent, preservative 6 completed Sara Ramires [place] [facility] 05/27/2022 11:26:00 Influenza, split virus, quadrivalent, preservative 2 completed Sara Ramires [place] [facility] 05/27/2022 11:26:01 Influenza, MDCK, quadrivalent, PF 0 completed Sara Ramires [place] [facility] 05/27/2022 11:26:01 Influenza, MDCK, quadrivalent, PF 9 completed Sara Ramires [place] [facility] 05/27/2022 11:26:01 MMR 9 completed Sara Ramires [place] [facility] 05/27/2022 11:26:01 MMR 9 completed Sara Ramires [place] [facility] 05/27/2022 11:26:01 COVID-19, mRNA, LNP-S, PF, 30 mcg/0.3 mL dose 1 completed Sara Ramires (TERMED) [place], [place] [facility] 05/27/2022 11:26:01 COVID-19 vaccine, vector-nr, rS-Ad26, PF, 0.5 mL 1 completed [facility] Ram[facility] (TERMED) null, [facility] 05/27/2022 11:26:01 Influenza, split virus, trivalent, preservative 8 completed [facility] (TERMED) [place] [place] [facility] 05/27/2022 11:26:01 Influenza, split virus, quadrivalent, PF 1 completed Sara Ramires (TERMED) [place], [place] [facility] 05/27/2022 11:26:01 Influenza, split virus, quadrivalent, PF 3 completed Lorin Mohamed (TERMED) null, [place] [facility] 06/11/2023 10:03:17 Past Encounters Encounter ID Performer Location Encounter Start Date Encounter Closed Date Diagnosis/Indication Diagnosis SNOMED-CT Code Diagnosis ICD10 Code Diagnosis Note [id number] MARTINEZ MCKENNA MD [address] ,[address] [place] [address] 05/24/2020 11:55:41 05/24/2020 13:19:23 Gynecologic examination 33357892 Z01.644 [id number] MARTINEZ MCKENNA MD [id number] [address] ,[address] [place] [address] 05/25/2021 09:28:32 05/25/2021 13:39:57 Gynecologic examination 69472254 Z01.419 Contracept ion care management 736128923 Z30.9 Doing well with continuous OCPs to control periods. Will continue. [id number] MARTINEZ MCKENNA MD [id number] [address] ,[address] [place] [address] 05/27/2022 11:06:25 05/28/2022 13:30:36 Contraception care management 719771683 Z30.9 Doing well with continuous OCPs to control periods. Will continue. Gynecologi c examination 79014352 Z01.419 Family his tory of Thyroid disorder 656700427 Z83.49 Requests TSH due to FH. [id number] MARTINEZ MCKENNA MD [id number] ,[address] [place] [address] 06/11/2023 10:00:47 06/11/2023 13:52:08 Hyperlipidemia screening 931858965 Z13.220 Diabetes m ellitus screening 498834023 Z13.1 Contracept ion care management 604120605 Z30.9 Doing well with continuous OCPs to control periods. Will continue. Gynecologi c examination 21781271 Z01.667 [id number] MARTINEZ MCKENNA MD [id number] [address] ,[address] [place] [address] 08/11/2024 16:36:36 08/12/2024 15:44:51 Contraception care management 397606888 Z30.9 Doing well with continuous OCPs to control periods. Will continue. Gynecologi c examination 17211802 Z01.419 Anxiety 50547908 F41.9 Reviewed positive PHQ-2 & NGHIA-7. Patient denies suicidal and homicidal ideations. She reports she feels she is doing well and will continue f/u with her psychiatry SENIOR NATIONAL ACCOUNT MANAGER. Health Concerns Section Related Observation LastModified by Organization Detai ls LastModified Time None Recorded Concern Status LastModified by Organization Details LastModified Time None Recorded Advance Directives Directive N: Payers Insurance Date Sequence Insurance Name Policy Number Policy Nagel Covered Member ID Nagel Member ID Guarantor Name 08/18/2024 1 [facility] [id number] Yen Milan [id number] Yen Milan 06/10/2023 1 [employer] (PPO) [id number] Yen Milan [id number] Yen Milan 05/14/2021 1 [employer] [id number] Michael Milan [id number] Yen Milan Notes Date Note Type Note Provider Name and Address Organization Details Recorded Time 05/24/2020 text/html Annual Premenopausal ([facility])Reported bypatient.Patient Relationship To Practice:francisco li patient Menstrual History:occasional withdrawal bleed, usually takes OCPs continuously Contraceptive Method:Current Method Used: vasectomy; satisfied; and OCPs (period control) Sexually Active:Yes: STI Screen:declines Health/Prevention:B reast Self Exam: yes Mammogram:not applicable Pap Smear +/- HPV Cotesting:up-to-valerie e Thyroid/Lipid Screening:due Colonoscopy:not applicable Patient has:Primary Care Physician: yesNotes:Patient also [place] [address] [facility],[address], [place], [address], [place] [facility] 05/25/2020 22:12:16 05/25/2021 text/html Annual Premenopausal ([facility])Reported bypatient.Patient Relationship To Practice:francisco li patient Current Medical History:active medical problems stable Menstrual History:occasional withdrawal bleed, usually takes OCPs continuously Contraceptive Method:satisfied: vasectomy; and OCPs (period control) Sexually Active:Yes: STI Screen:declines Health/Prevention:B reast Self Exam: yes Mammogram:not applicable Pap Smear +/- HPV Cotesting:up-to-valerie e Thyroid/Lipid Screening:up-to-valerie e Colonoscopy:not applicable Patient has:Primary Care Physician: yesNotes:Patient also [place] [address], [place], [address], [place] [facility] 05/25/2021 13:10:25 05/27/2022 text/html Annual Premenopausal ([facility])Reported bypatient.Patient Relationship To Practice:francisco li patient Current Medical History:active medical problems stable Menstrual History:occasional withdrawal bleed, usually takes OCPs continuously Contraceptive Method:satisfied: vasectomy; and OCPs (period control) Sexually Active:Yes: Health/Prevention:B reast Self Exam: yes Mammogram:due Pap Smear +/- HPV Cotesting:due Thyroid/Lipid Screening:up-to-valerie e Colonoscopy:not applicable Patient has:Primary Care Physician: yesNotes:Patient also has a psychiatrist. States doing okay, anxiety stable [place] [address], [place], [address], [place] [facility] 05/28/2022 12:55:35 06/11/2023 text/html Annual Premenopausal ([facility])Reported bypatient.Patient Relationship To Practice:establishe d patient Current Medical History:active medical problems stable; feels mental health is well controlled at this time despite PHQ-9 and NGHIA-7 scores. Sees psychiatry SENIOR NATIONAL ACCOUNT MANAGER and will continue to follow there. Menstrual History:takes OCPs continuously Contraceptive Method:satisfied: vasectomy; and OCPs (period control) Sexually Active:Yes: Health/Prevention:B reast Self Exam: yes Mammogram:up-to-valerie e Pap Smear +/- HPV Cotesting:up-to-valerie e Thyroid/Lipid Screening:due Colonoscopy:up-to-d ate Patient has:Primary Care Physician: yesNotes:Has been having GI issues and is seeing GI. Nausea felt to maybe be due to one of her psychiatry meds and she is weaning off to see if this will help. [place] [address], [place], [address], [facility] - [facility] 06/11/2023 13:41:05 08/11/2024 text/html Annual Premenopausal ([facility])Reported bypatient.Patient Relationship To Practice:establishe d patient Current Medical History:active medical problems stable; feels mental health is well controlled at this time despite PHQ-9 and NGHIA-7 scores. Sees psychiatry SENIOR NATIONAL ACCOUNT MANAGER and will continue to follow there. Menstrual History:takes OCPs continuously Contraceptive Method:satisfied: vasectomy; and OCPs (period control) Sexually Active:Yes: Health/Prevention:B reast Self Exam: yes Mammogram:up-to-valerie e Pap Smear +/- HPV Cotesting:up-to-valerie e Thyroid/Lipid Screening:due Colonoscopy:up-to-d ate Patient has:Primary Care Physician: yesNotes:Plans cholesterol with PCP. Sees SENIOR NATIONAL ACCOUNT MANAGER for mental health - made a couple changes to meds over the last year. She reports doing well and will continue f[place] [address] [facility],[address], [place], [address], [place] [facility] 08/11/2024 22:06:03 OBGyn Episode Ob Episode Information Episode Created Date Number of Fetuses Patient Bloodtype Patient rh Status Prepregnancy Weight lbs Domestic Partner Domestic Partner Phone Father Name Regional Director Of Finance Status 05/24/19 21 1 CLOSED Fetus Data First Name Last Name Admitted to NICU Weight (g) Sex Living Outcome Pediatric Complications Fetus ID Race Codes Race Delivery Type 2891.64 9 M Full Term [id number] Jose Calculation Initial Jose Date Initial Exam Date Initial Exam Provider Initial Ultrasound Date Last Menstrual Period Date Ultra Sound Weeks Gestation 0 Eighteen To Twenty Week Jose Update Ultra Sound Date Fundal Height At Umbil Quickening Date Ultra Sound Latest Weeks Gestation Final Jose Confirmed By Final Jose Confirmed Date Final Jose Date Ultra Sound Latest Days Gestation 0 0 Menstrual History Last Menstrual Date Menses Monthly On Bcp Conception Prior Menses Frequency Hcg Plus Date Menarche Onset Age Delivery Information Delivery Date Delivery Type Labor Anesthesia Weeks Gestation Incision Type Labor Labor Length Hrs Delivered By Post Complications Tubal Sterilization Discharge Date Comments 6 Regional-Sp inal 37 Discharge Information Feeding Method Contraceptive Method Maternal HG B and HCT Levels Ob Episode Information Episode Created Date Number of Fetuses Patient Bloodtype Patient rh Status Prepregnancy Weight lbs Domestic Partner Domestic Partner Phone Father Name Regional Director Of Finance Status 05/24/19 21 1 CLOSED Fetus Data First Name Last Name Admitted to NICU Weight (g) Sex Living Outcome Pediatric Complications Fetus ID Race Codes Race Delivery Type 3061.74 6 F Full Term 41579 Jose Calculation Initial Jose Date Initial Exam Date Initial Exam Provider Initial Ultrasound Date Last Menstrual Period Date Ultra Sound Weeks Gestation 0 Eighteen To Twenty Week Jose Update Ultra Sound Date Fundal Height At Umbil Quickening Date Ultra Sound Latest Weeks Gestation Final Jose Confirmed By Final Jose Confirmed Date Final Jose Date Ultra Sound Latest Days Gestation 0 0 Menstrual History Last Menstrual Date Menses Monthly On Bcp Conception Prior Menses Frequency Hcg Plus Date Menarche Onset Age Delivery Information Delivery Date Delivery Type Labor Anesthesia Weeks Gestation Incision Type Labor Labor Length Hrs Delivered By Post Complications Tubal Sterilization Discharge Date Comments 3 Regional-Ep idural 40 Discharge Information Feeding Method Contraceptive Method Maternal HG B and HCT Levels Ob Episode Information Episode Created Date Number of Fetuses Patient Bloodtype Patient rh Status Prepregnancy Weight lbs Domestic Partner Domestic Partner Phone Father Name Regional Director Of Finance Status 05/24/19 21 1 CLOSED Fetus Data First Name Last Name Admitted to NICU Weight (g) Sex Living Outcome Pediatric Complications Fetus ID Race Codes Race Delivery Type 3033.16 9704 M Full Term 19627 Jose Calculation Initial Jose Date Initial Exam Date Initial Exam Provider Initial Ultrasound Date Last Menstrual Period Date Ultra Sound Weeks Gestation 0 Eighteen To Twenty Week Jose Update Ultra Sound Date Fundal Height At Umbil Quickening Date Ultra Sound Latest Weeks Gestation Final Jose Confirmed By Final Jose Confirmed Date Final Jose Date Ultra Sound Latest Days Gestation 0 0 Menstrual History Last Menstrual Date Menses Monthly On Bcp Conception Prior Menses Frequency Hcg Plus Date Menarche Onset Age Delivery Information Delivery Date Delivery Type Labor Anesthesia Weeks Gestation Incision Type Labor Labor Length Hrs Delivered By Post Complications Tubal Sterilization Discharge Date Comments 8 Regional-Sp inal 37 Discharge Information Feeding Method Contraceptive Method Maternal HG B and HCT Levels
--- OUTSIDE RECORDS SUMMARY | 2024-09-21 01:55 | XMS_ITS | Encounter Summary ---
Author Organization [facility] Address [address] [place] [address]. [place] [address] Care Team Providers Care Farm Laborer Name Role Phone Yazmin Burnham APRN ACID TANK CLEANER Unavailable [phone] Yazmin Burnham APRN [facility] Primary Care Provider + Kenisha Rodriges PA-C Unavailable [phone] Kari Boykin [facility] Unavailable [phone] Kari Boykin [facility] Unavailable [phone] Encounter Details Date Type Department Care Team (Late st Contact Info) Description 06/03/2024 MyC Medical Advice [facility] [address] [place] [address] Kenisha Rodriges PA-C [address] [facility] [place] [id number] Social History Tobacco Use Types Packs/Day Years [...] How often do you attend chur or rastafarian services? 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 file Not on file documented as of this encounter Plan of Treatment Upcoming Encounters Date Type Department Care Team (Late st Contact Info) Description 01/25/2025 11:00 AM DOCUMENT REVIEW ATTORNEY Office Visit [facility] [place] [address] [facility] [address] [place] [address] Kenisha Rodriges PA-C [address] [id number] documented as of this encounter Visit Diagnoses Not on filedocumented in this encounter Care Teams Farm Laborer Relationship Specialty Start Date End Date Yazmin Burnham APRN ACID TANK CLEANER [address] [facility] [place] [address] PCP - General 02/02/24 Yazmin Burnham APRN ACID TANK CLEANER [address] [facility] [place] [address] Assigned PCP 09/14/23 Kenisha Rodriges PA-C [address] [place] [address] Assigned Surgical Provider 02/14/24 Kari Boykin [facility] [address] [place], [place] [phone] Pharmacist Pharmacist 05/05/24 Kari Boykin [facility] [address] [place], [place] [phone] Assigned MTM Pharmacist 05/16/24 documented as of this encounter
--- OUTSIDE RECORDS SUMMARY | 2024-09-21 01:55 | XMS_ITS | Encounter Summary ---
Author Organization [facility] Address [address] [place] [address] Care Team Providers Care Career Center Advisor Name Role Phone [facility]- Primary Care Provider Ekaterina Craig PA-C Unavailable Satnam Pizarro MD Unavailable [phone] Yazmin Burnham APRN MEDICAL DOCTOR Unavailable [phone] Yazmin Burnham APRN MEDICAL DOCTOR Primary Care Provider + Kenisha Rodriges PA-C Unavailable [phone] Kari Boykin [facility] Unavailable [phone] Kari Boykin [facility] Unavailable [phone] Encounter Details Date Type Department Care Team (Late st Contact Info) Description 07/13/2021 MyC Medical Advice [facility] [address] [place] [address] Sol Reynaga, NATHAN Social History [...] How often do you attend chur or congregational services? More than 4 times per year 04/23/2021 Do you belong to any clubs o r organizations such as anabaptist groups, unions, fraternal or athletic groups, or [...] and heating? Not hard at all 04/23/2021 [facility] of Occupat ional Health - Occupational Stress [...] place to sleep or slept in a halfway (including now)? 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 Not on file Not on file documented as of this encounter Plan of Treatment Upcoming Encounters Date Type Department Care Team (Late st Contact Info) Description 01/25/2025 11:00 AM JAVA SWING DEVELOPER Office Visit [facility] [place] [address] [facility] [address] [place] [phone] Kenisha Rodriges PA-C [address] [facility] [address] documented as of this encounter Visit Diagnoses Not on filedocumented in this encounter Care Teams Career Center Advisor Relationship Specialty Start Date End Date [facility]- [address] [place] [address] PCP - General 01/19/19 02/01/24 Yazmin Burnham APRN MEDICAL DOCTOR [address] [facility] [place] [address] PCP - General 02/02/24 Ekaterina Craig PA-C [facility] [address] [place] [address] Assigned PCP 03/29/21 03/15/22 Satnam Pizarro MD [address] [place], [place] [address] Assigned PCP 03/16/22 09/13/23 Yazmin Burnham APRN MEDICAL DOCTOR [address] [facility] [place] [address] Assigned PCP 09/14/23 Kenisha Rodriges PA-C [address] [place] [address] Assigned Surgical Provider 02/14/24 Kari Boykin [facility] [address] [place] [phone] Pharmacist Pharmacist 05/05/24 Kari Boykin [facility] [address] [place], [place] [address] Assigned MTM Pharmacist 05/16/24 documented as of this encounter
--- OUTSIDE RECORDS SUMMARY | 2024-09-21 01:55 | XMS_ITS | Encounter Summary ---
Author Organization [facility] Address [address] [place] [address] Care Team Providers Care Senior Administrative Assistant Name Role Phone Tej Yazmin LEE AIR AND MISSILE DEFENSE CREWMEMBER Unavailable [phone] Yazmin Burnham APRN AIR AND MISSILE DEFENSE CREWMEMBER Primary Care Provider + Kenisha Rodriges PA-C Unavailable [phone] [facility] Unavailable [phone] [facility] Unavailable [phone] Encounter Details Date Type Department Care Team (Late st Contact Info) Description 05/05/2024 [facility] Medical Advice [facility] Multiple Specialty [facility] [address] [facility] [address] [place] [address] Kari Boykin, [facility] [address] [place] [address] Social History Tobacco Use Types [...] often do you attend chur ch or catholic services? More than 4 times per year 04/23/2021 Do you belong to any clubs o r organizations such as cheondoism groups, unions, fraternal or athletic groups, or [...] Answer Date Recorded PHQ-2 Score 2 05/05/2024 [facility] of Occupat ional Health - Occupational [...] place to sleep or slept in a chcf (including now)? 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 [address] [place] [phone] Kenisha Rodriges PA-C [address] [address] documented as of this encounter Visit Diagnoses Not on filedocumented in this encounter Care Teams Senior Administrative Assistant Relationship Specialty Start Date End Date Yazmin Burnham APRN AIR AND MISSILE DEFENSE CREWMEMBER [address] [facility] [place] [address] PCP - General 02/02/24 Yazmin Burnham APRN CNP [address] [facility] [place] [address] Assigned PCP 09/14/23 Kenisha Rodriges PA-C [address] [place] [address] Assigned Surgical Provider 02/14/24 Kari Boy[address] [facility] [address] [place] [phone] Pharmacist Pharmacist 05/05/[address] [facility] [address] [place] [id number] Assigned MTM Pharmacist 05/16/24 documented as of this encounter
--- OUTSIDE RECORDS SUMMARY | 2024-09-21 01:55 | XMS_ITS | Encounter Summary ---
Author Organization [facility] Address [address] [place] [address] Care Team Providers Care Drafter Structural Name Role Phone [facility]- Primary Care Provider Ekaterina Craig PA-C Unavailable Satnam Pizarro MD Unavailable [phone] Yazmin Burnham APRN WET ROASTER Unavailable [phone] Yazmin Burnham APRN WET ROASTER Primary Care Provider + Kenisha Rodriges PA-C Unavailable [phone] Kari Boykin [facility] Unavailable [phone] Kair Boykin [facility] Unavailable [phone] Encounter Details Date Type Department Care Team (Late st Contact Info) Description 05/07/2021 Community Resource Summary INTERFACED REPORT Social History Tobacco Use Types Packs/Day Years [...] and heating? Not hard at all 04/23/2021 [facility] Occupat ional [facility] - Occupational Stress [...] place to sleep or slept in a skilled nursing (including now)? 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 No / Unsure 04/23/2021 7:16 AM METAL BURRER documented as of this encounter Plan of Treatment Upcoming Encounters Date Type Department Care Team (Late st Contact Info) Description 01/25/2025 11:00 AM METAL BURRER Office Visit [facility] [place] [id number] [facility] [address] [place] Rodriguez [phone] Kenisha Rodriges PA-C [address] [place] [address] JUST[place] RODRIGUEZ [id number] documented as of this encounter Visit Diagnoses Not on filedocumented in this encounter Care Teams Drafter Structural Relationship Specialty Start Date End Date [facility]- [address] [facility] [place] [id number] PCP - General 01/19/19 02/01/24 Yazmin Burnham APRN WET ROASTER [address] [place] [address] [place] WALL [address] PCP - General 02/02/24 Ekaterina Craig PA-C [facility] [address] [place] [id number] Assigned PCP 03/29/21 03/15/22 Satnam Pizarro MD [address] [place] [id number] Assigned PCP 03/16/22 09/13/23 Yazmin Burnham APRN WET ROASTER [facility] [place] [address] Assigned PCP 09/14/23 Kenisha Rodriges PA-C [address] [place] [address] Assigned Surgical Provider 02/14/24 Kari Boykin [facility] [address] [place] [address] [phone] Pharmacist Pharmacist 05/05/24 Kari Boykin Bernardo [address] [place] [address] [id number] Assigned MTM Pharmacist 05/16/24 documented as of this encounter
--- OUTSIDE RECORDS SUMMARY | 2024-09-21 01:55 | XMS_ITS | Encounter Summary ---
Author Organization [facility] Address [address] [place] [address] Care Team Providers Care Rn Acls Name Role Phone Yazmin Burnham APRN LOAN TELLER Unavailable [phone] Yazmin Burnham APRN LOAN TELLER Primary Care Provider + Kenisha Rodriges PA-C Unavailable [phone] Kari Boykin [facility] Unavailable [phone] Kari Boykin [facility] Unavailable [phone] Encounter Details Date Type Department Care Team (Late st Contact Info) Description 03/03/2024 [facility] [address] [place] [phone] Renetta [place] Social History Tobacco Use Types Packs/Day Years [...] week 04/23/2021 How often do you attend [facility] or [facility] services? More than 4 times per year [...] Answer Date Recorded PHQ-2 Score 2 07/28/2023 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 file documented as of this encounter Plan of Treatment Upcoming Encounters Date Type Department Care Team (Late st Contact Info) Description 01/25/2025 11:00 AM IMPACT HAMMER OPERATOR Office Visit [facility] [place] [address] [facility] [address] [place] Rodriguez [phone] Kenisha Rodriges PA-C [address] [facility] [place] RODRIGUEZ [id number] documented as of this encounter Visit Diagnoses Not on filedocumented in this encounter Care Teams Rn Acls Relationship Specialty Start Date End Date Yazmin Burnham APRN LOAN TELLER [facility] [place] [address] PCP - General 02/02/24 Yazmin Burnham APRN LOAN TELLER [address] [facility] [place] [address] Assigned PCP 09/14/23 Kenisha Rodriges PA-C [address] [place] [phone] Assigned Surgical Provider 02/14/24 Kari Boykin [facility] [address] [place] [phone] Pharmacist Pharmacist 05/05/24 Kari Boykin [facility] [address] [place] [address] [phone] Assigned MTM Pharmacist 05/16/24 documented as of this encounter
== END 2024-09-17 23:23 | disposition home or self-care (01) ==
PROVIDERS: PCP Physician Assistant Medical; Visit Provider Student in an Organized Health Care Education/Training Program
DX: R10.13 Epigastric pain (principal)
CPT/HCPCS: A0425; A0429